=== PATIENT | male | born 1965 | race Caucasian/White ===

== ENCOUNTER 2021-07-18 21:44 | Inpatient (IN) | payer OTHER, SELFPAY ==
[2021-07-18 22:14] VITALS: BP 152/96; PULSE 98; RESP 24; TEMP 36.7; O2SAT 92; BMI 27.2
[2021-07-18 22:27] VITALS: BP 167/97; PULSE 100; RESP 26; O2SAT 93
[2021-07-18 22:27] LABS: Add Manual Diff / Slide Review NO; Basophils Absolute Auto 0 /uL (0-100); Basophils Percent Auto 0.5 % (0-2); Eosinophils Absolute Auto 0 /uL (0-450); Hematocrit 50.8 % (41-53); Hemoglobin 17.7 g/dL (13.5-17.5); Lymphocytes Absolute Auto 900 /uL (1100-4500); Lymphocytes Percent Auto 19.7 % (25-40); Mean Corpuscular HGB Conc 34.7 % (30-36); Mean Corpuscular Hemoglobin 31.9 PG (26-34); Mean Corpuscular Volume 91.8 fL (80-100); Monocytes Absolute Auto 500 /uL (0-900); Neutrophils Absolute Auto 3200 /uL (1500-7000); Neutrophils Percent Auto 68.8 % (50-75); Platelet Count 146 X10^3/uL (150-400); Red Blood Cell Count 5.54 X10^6/uL (4.5-5.9); Red Cell Distribution Width 12.5 % (11.6-14.8); White Blood Cell Count 4.6 X10^3/uL (4.5-11.0)
[2021-07-18 22:30] VITALS: BP 167/98; PULSE 94; RESP 46; O2SAT 91
[2021-07-18] MEDS: ONDANSETRON 4 MG/2 ML INJ IV (22:30)
[2021-07-18 22:37] LABS: Alanine Aminotransferase 45 IU/L (<50); Albumin 4.2 g/dL (3.5-5.0); Albumin Globulin Ratio 1.4 (1.0-2.8); Alkaline Phosphatase 55 U/L (38-126); Aspartate Aminotransferase 44 IU/L (17-59); BUN Creatinine Ratio 42.6 (6-22); Bilirubin Total 0.8 mg/dL (0.2-1.3); Blood Urea Nitrogen 26 mg/dL (9-20); Calcium 9.1 mg/dL (8.4-10.2); Carbon Dioxide 24 mmol/L (22-32); Chloride 92 mmol/L (98-107); Estimated Glomerular Filt Rate > 60.0 mL/min (>60); Globulin 3.1 g/dL (1.7-4.1); Glucose 316 mg/dL (70-100); HEMOLYSIS 22 (0-50); Lipase 108 U/L (23-300); Sodium 129 mmol/L (137-145); Total Protein 7.3 g/dL (6.3-8.2)
[2021-07-18 23:00] VITALS: BP 175/97; PULSE 97; RESP 42; O2SAT 91
[2021-07-18 23:07] VITALS: TEMP 37.2
[2021-07-18] MEDS: SODIUM CHLORIDE 0.9% 1,000 ML 1000 ML IV (23:10)
[2021-07-18 23:30] VITALS: BP 173/91; PULSE 101; RESP 43; O2SAT 88
[2021-07-19] VITALS (13 sets, daily range): BP systolic 128–173; BP diastolic 73–95; PULSE 72–98; RESP 16–37; TEMP 36.5–37.6; O2SAT 87–97; BMI 26.9
--- NOTE | 2021-07-19 00:34 | DI.CT.S_ITS ---
PROCEDURE: CT ABDOMEN PELVIS W CON INDICATIONS: abdominal pain, + covid TECHNIQUE: After the administration of oral and IV contrast, axial sections were acquired from the lung bases to the pubic symphysis. Coronal and sagittal reformats were performed. For radiation dose reduction, the following was used: automated exposure control, adjustment of mA and/or kV according to patient size. COMPARISON: [facility], CR, XR CHEST 1V, 07/19/2021, 0:34. [facility], CT, PE STUDY (CTA CHEST), 12/26/2014, 12:57. FINDINGS: Image quality: Excellent. Lung bases: Bilateral patchy interstitial type infiltrates are seen, primarily peripherally. A small hiatal hernia is incidentally noted. Heart: No significant findings. ABDOMEN: Liver: Diffuse fatty liver infiltration is noted. The liver demonstrates overall normal size. No focal liver lesions are seen. Gallbladder: Unremarkable. Biliary ducts: Unremarkable. Pancreas: Unremarkable. Spleen: Unremarkable. Incidental note is made of an accessory splenule along the hilum of the primary spleen. Adrenal Glands: Unremarkable. Kidneys and Ureters: Unremarkable. Stomach and Bowel: Stomach, small bowel loops, and colon are unremarkable. No appendix (either normal or abnormal) is identified on this study. Peritoneum: No abnormal intraperitoneal fluid. No free air. Ventral Wall: No hernia. Abdominal Nodes: No retroperitoneal or mesenteric adenopathy by size criteria. Vessels: Aorta and inferior vena cava are normal in size. PELVIS: Pelvic Organs: Unremarkable. Bladder: Unremarkable. Pelvic Nodes: No enlarged lymph nodes. Miscellaneous: Bilateral fat containing inguinal hernias are seen, left larger than right. Bones: Age-appropriate bony degenerative changes are seen. IMPRESSION: A cause of abdominal pain is not observed on these images. Patchy bilateral interstitial infiltrates are seen, which are consistent with the given clinical history of COVID pneumonia. Incidental note is made of: Small hiatal hernia Accessory splenule Bilateral fat containing inguinal hernias Dictated by: Quintin Elder M.D. on 07/19/2021 at 0:12 Approved by: Quintin Elder M.D. on 07/19/2021 at 0:14
--- NOTE | 2021-07-19 00:34 | DI.RAD.S_ITS ---
PROCEDURE: XR CHEST 1V INDICATIONS: covid TECHNIQUE: One view of the chest was acquired. COMPARISON: [facility], CT, CT ABDOMEN PELVIS W CON, 07/19/2021, 0:42. [facility], CT, PE STUDY (CTA CHEST), 12/26/2014, 12:57. [facility], CR, CHEST 1 VIEW, 12/26/2014, 11:45. FINDINGS: Surgical changes and devices: None. Lungs and pleura: Low lung volumes are noted. This causes a crowded appearance to the lung markings and limits evaluation. Bilateral patchy interstitial type infiltrates are seen. No pleural effusions or pneumothorax. Mediastinum: Mediastinal contours appear normal. Heart size is normal. Bones and chest wall: No suspicious bony lesions. Overlying soft tissues appear unremarkable. IMPRESSION: Patchy bilateral interstitial infiltrates are seen, which are consistent with the given clinical history of COVID pneumonia. Dictated by: Quintin Elder M.D. on 07/19/2021 at 0:11 Approved by: Quintin Elder M.D. on 07/19/2021 at 0:12
[2021-07-19] MEDS: PANTOPRAZOLE 40 MG VIAL IV (00:39)
[2021-07-19] MEDS: KETOROLAC 30 MG/ML VIAL IV (00:39)
[2021-07-19] MEDS: ACETAMINOPHEN 325 MG TABLET 975 MG PO (00:39)
--- NOTE | 2021-07-19 00:44 | ED.ABDPAIN ---
HPI - Abdominal Pain General Chief Complaint: Abdominal Pain Stated Complaint: stomach pain, recent + covid Time Seen by Provider: 07/18/21 23:57 Source: patient and family Mode of arrival: Wheelchair Limitations: no limitations History of Present Illness HPI narrative: The patient is a 55-year-old male with diagnosed with COVID 1 week ago presenting today with increased abdominal pain and nausea. He is having shortness of breath with exertion occasional coughing. Overall body aches. Feels like he is dying. O2 sat remains 92-93% room air. He is not vaccinated. Currently afebrile, has not taken any Tylenol or ibuprofen. Apparently filled out a survey on line and was prescribed azithromycin and methylprednisolone from a provider in [place]. Related Data Allergies Allergy/AdvReac Type Severity Reaction Status Date / Time No Known Drug Allergies Allergy Verified 07/18/21 22:31 Review of Systems Review of Systems Narrative: GENERAL: Denies chills, fatigue, malaise, fever, sweats, travel HEENT: Denies sinus pain, ear pain, sore throat, difficulty swallowing, neck pain RESPIRATORY: Denies dyspnea, cough, wheezing, hemoptysis, sputum. CARDIOVASCULAR: Denies chest pain, palpitations, orthopnea, edema GASTROINTESTINAL: See HPI : Denies dysuria, frequency, incontinence, hematuria, urinary retention, flank pain. MUSCULOSKELETAL: Denies weakness, joint pain, or bony pain SKIN: No rash, no erythema, no pruritus NEUROLOGIC: Denies weakness, dizziness, headache, numbness, change in speech, confusion PSYCHIATRIC: No concerning psychosocial issues. 12 point review of systems is negative except for those stated above and HPI Patient History Medical History (Updated 07/19/21 @ 03:30 by SUE Locke-LAKESHIA) No significant past medical history Surgical History (Updated 07/19/21 @ 03:30 by CESAR Locke) History of appendectomy Family History Mother Cancer Father Heart attack Exam Initial Vital Signs Initial Vital Signs: Vital Signs Temperature 98.1 F 07/18/21 22:14 Pulse Rate 98 H 07/18/21 22:14 Respiratory Rate 24 07/18/21 22:14 Blood Pressure 152/96 H 07/18/21 22:14 Pulse Oximetry 92 07/18/21 22:14 GENERAL: Tearful 55-year-old male HEENT: Head atraumatic,EOMI, pupils reactive, face symmetric, [moist] mucous membranes CARDIOVASCULAR: Regular rate and rhythm without murmurs, rubs or gallops. RESPIRATORY: Breath sounds equal bilaterally, no wheezes rales or rhonchi. ABDOMEN: Soft, diffusely tender no distention no localization of pain negative Barnes sign EXTREMITIES: Normal range of motion, no clubbing or edema. Neurovascularly intact NEUROLOGICAL: Alert and oriented x4.Normal gait and speech. SKIN: Warm, dry, no laceration, no petechiae, no rashes or lesions. Course Orders Ordered: ED Orders 07/18/21 22:04 Complete Blood Count AUTO DIFF Stat Comprehensive Metabolic Panel Stat Lipase Stat 07/18/21 22:19 EKG-12 Lead Stat 07/19/21 00:34 CT abdomen pelvis w con Stat XR chest 1V Stat 07/19/21 01:52 Hemoglobin A1C% w Est Avg Glu Stat Acetaminophen (Acetaminophen 325 Mg Tablet) 650 mg PO Q6HR PRN PRN Reason: Fever/Mild Pain (1-3) Last Admin: 07/19/21 03:43 Dose: 650 mg Documented by: NAZARIO Hydrocodone Bitart/Acetaminophen (Hydrocodone/Acet 5/325 Tablet) 2 tab PO Q4HR PRN PRN Reason: Pain, Severe (7-10) Dexamethasone (Dexamethasone 10 Mg/Ml Vial) 6 mg IV DAILY [facility] Remdesivir 100 mg/ Sodium (Chloride) 250 mls @ 250 mls/hr IV DAILY KONSTANTIN Stop: 07/27/21 09:01 Sodium Chloride (Normal Saline 0.9%) 500 mls @ 60 mls/hr IV CONT KONSTANTIN Last Admin: 07/19/21 03:44 Dose: 60 mls/hr Documented by: NAZARIO Ketorolac Tromethamine (Ketorolac 30 Mg/Ml Vial) 30 mg IV Q6HR PRN PRN Reason: Pain, Severe (7-10) Stop: 07/24/21 02:13 Lorazepam (Lorazepam 0.5 Mg Tablet) 0.5 mg PO Q4HR PRN PRN Reason: Anxiety Last Admin: 07/19/21 03:43 Dose: 0.5 mg Documented by: NAZARIO Naloxone HCl (Naloxone 0.4 Mg/Ml Vial) 0.2 mg IV Q2MIN PRN PRN Reason: Opiate Reversal Ondansetron HCl (Ondansetron 4 Mg/2 Ml Inj) 4 mg IV Q8HR PRN PRN Reason: Nausea And Vomiting Discontinued Medications Acetaminophen (Acetaminophen 325 Mg Tablet) 975 mg PO NOW ONE Stop: 07/19/21 00:35 Last Admin: 07/19/21 00:39 Dose: 975 mg Documented by: MAXIMILIAN Dexamethasone (Dexamethasone 10 Mg/Ml Vial) 6 mg IV NOW ONE Stop: 07/19/21 01:21 Last Admin: 07/19/21 01:54 Dose: 6 mg Documented by: MAXIMILIAN Enoxaparin Sodium (Enoxaparin 40 Mg/0.4 Ml Syringe) 40 mg SUBCUT DAILY KONSTANTIN Sodium Chloride (Normal Saline 0.9%) 1,000 mls @ 1,000 mls/hr IV BOLUS ONE Stop: 07/18/21 23:40 Last Infusion: 07/19/21 00:26 Dose: 0 mls/hr Documented by: Admin: 07/18/21 23:10 Dose: 1,000 mls/hr Documented by: MAXIMILIAN Remdesivir 200 mg/ Sodium (Chloride) 250 mls @ 250 mls/hr IV NOW ONE Stop: 07/19/21 01:21 Last Infusion: 07/19/21 02:39 Dose: 250 mls/hr Documented by: Admin: 07/19/21 01:53 Dose: 250 mls/hr Documented by: MAXIMILIAN Ketorolac Tromethamine (Ketorolac 30 Mg/Ml Vial) 30 mg IV NOW ONE Stop: 07/19/21 00:35 Last Admin: 07/19/21 00:39 Dose: 30 mg Documented by: MAXIMILIAN Ondansetron HCl (Ondansetron 4 Mg/2 Ml Inj) 4 mg IV NOW ONE Stop: 07/18/21 22:20 Last Admin: 07/18/21 22:30 Dose: 4 mg Documented by: RAMAKRISHNA Pantoprazole Sodium (Pantoprazole 40 Mg Vial) 40 mg IV NOW ONE Stop: 07/19/21 00:35 Last Admin: 07/19/21 00:39 Dose: 40 mg Documented by: MAXIMILIAN Vital Signs Vital signs: Vital Signs - 8 hr 07/18/21 22:14 07/18/21 22:27 07/18/21 22:30 Temperature 98.1 F Pulse Rate 98 H 100 H 94 H Respiratory Rate 24 26 H 46 H Blood Pressure 152/96 H 167/97 H 167/98 H Pulse Oximetry 92 93 91 07/18/21 23:00 07/18/21 23:07 07/18/21 23:30 Temperature 98.9 F Pulse Rate 97 H 101 H Respiratory Rate 42 H 43 H Blood Pressure 175/97 H 173/91 H Pulse Oximetry 91 88 L 07/19/21 00:00 Temperature Pulse Rate 98 H Respiratory Rate 37 H Blood Pressure 173/95 H Pulse Oximetry 90 L MDM - Abdominal Pain Lab Data Result diagrams: 07/19/21 02:51 07/19/21 02:51 Labs: Lab Results 07/18/21 07/18/21 07/18/21 Range/Units 22:04 22:04 22:04 WBC 4.6 (4.5-11.0) X10^3/uL RBC 5.54 (4.5-5.9) X10^6/uL Hgb 17.7 H (13.5-17.5) g/dL Hct 50.8 (41-53) % MCV 91.8 (80-100) fL MCH 31.9 (26-34) PG MCHC 34.7 (30-36) % RDW 12.5 (11.6-14.8) % Plt Count 146 L (150-400) X10^3/uL Neut % (Auto) 68.8 (50-75) % Lymph % (Auto) 19.7 L (25-40) % [place] % (Auto) 11.0 (3-14) % Eos % (Auto) 0.0 L (2-4) % Baso % (Auto) 0.5 (0-2) % Neut # (Auto) 3200 (1996-7475) /uL Lymph # (Auto) 900 L (2171-6684) /uL [place] # (Auto) 500 (0-900) /uL Eos # (Auto) 0 (0-450) /uL Baso # (Auto) 0 (0-100) /uL Sodium 129 L (137-145) mmol/L Potassium 4.0 (3.4-5.1) mmol/L Chloride 92 L (98-107) mmol/L Carbon Dioxide 24 (22-32) mmol/L BUN 26 H (9-20) mg/dL Creatinine 0.61 L (0.66-1.25) mg/dL Estimated GFR > 60.0 (>60) mL/min BUN/Creatinine Ratio 42.6 H (6-22) Glucose 316 H (70-100) mg/dL Hemoglobin A1c 11.8 H (4.0-6.0) % Lactate (0.7-2.1) mmol/L Calcium 9.1 (8.4-10.2) mg/dL Phosphorus (2.5-4.5) mg/dL Magnesium (1.6-2.3) mg/dL Total Bilirubin 0.8 (0.2-1.3) mg/dL AST 44 (17-59) IU/L ALT 45 (<50) IU/L Alkaline Phosphatase 55 (38-126) U/L Troponin I (0.01-0.034) ng/mL C-Reactive Protein (<1.0) mg/dL Total Protein 7.3 (6.3-8.2) g/dL Albumin 4.2 (3.5-5.0) g/dL Globulin 3.1 (1.7-4.1) g/dL Albumin/Globulin Ratio 1.4 (1.0-2.8) Lipase 108 (23-300) U/L 07/18/21 07/18/21 07/18/21 Range/Units 22:04 22:04 22:04 WBC (4.5-11.0) X10^3/uL RBC (4.5-5.9) X10^6/uL Hgb (13.5-17.5) g/dL Hct (41-53) % MCV (80-100) fL MCH (26-34) PG MCHC (30-36) % RDW (11.6-14.8) % Plt Count (150-400) X10^3/uL Neut % (Auto) (50-75) % Lymph % (Auto) (25-40) % [place] % (Auto) (3-14) % Eos % (Auto) (2-4) % Baso % (Auto) (0-2) % Neut # (Auto) (7470-6274) /uL Lymph # (Auto) (9915-1181) /uL [place] # (Auto) (0-900) /uL Eos # (Auto) (0-450) /uL Baso # (Auto) (0-100) /uL Sodium (137-145) mmol/L Potassium (3.4-5.1) mmol/L Chloride (98-107) mmol/L Carbon Dioxide (22-32) mmol/L BUN (9-20) mg/dL Creatinine (0.66-1.25) mg/dL Estimated GFR (>60) mL/min BUN/Creatinine Ratio (6-22) Glucose (70-100) mg/dL Hemoglobin A1c (4.0-6.0) % Lactate (0.7-2.1) mmol/L Calcium (8.4-10.2) mg/dL Phosphorus 3.3 (2.5-4.5) mg/dL Magnesium 2.1 (1.6-2.3) mg/dL Total Bilirubin (0.2-1.3) mg/dL AST (17-59) IU/L ALT (<50) IU/L Alkaline Phosphatase (38-126) U/L Troponin I < 0.012 (0.01-0.034) ng/mL C-Reactive Protein 7.0 H (<1.0) mg/dL Total Protein (6.3-8.2) g/dL Albumin (3.5-5.0) g/dL Globulin (1.7-4.1) g/dL Albumin/Globulin Ratio (1.0-2.8) Lipase (23-300) U/L 07/18/21 Range/Units 22:04 WBC (4.5-11.0) X10^3/uL RBC (4.5-5.9) X10^6/uL Hgb (13.5-17.5) g/dL Hct (41-53) % MCV (80-100) fL MCH (26-34) PG MCHC (30-36) % RDW (11.6-14.8) % Plt Count (150-400) X10^3/uL Neut % (Auto) (50-75) % Lymph % (Auto) (25-40) % [place] % (Auto) (3-14) % Eos % (Auto) (2-4) % Baso % (Auto) (0-2) % Neut # (Auto) (1516-1160) /uL Lymph # (Auto) (2031-5398) /uL [place] # (Auto) (0-900) /uL Eos # (Auto) (0-450) /uL Baso # (Auto) (0-100) /uL Sodium (137-145) mmol/L Potassium (3.4-5.1) mmol/L Chloride (98-107) mmol/L Carbon Dioxide (22-32) mmol/L BUN (9-20) mg/dL Creatinine (0.66-1.25) mg/dL Estimated GFR (>60) mL/min BUN/Creatinine Ratio (6-22) Glucose (70-100) mg/dL Hemoglobin A1c (4.0-6.0) % Lactate 1.3 (0.7-2.1) mmol/L Calcium (8.4-10.2) mg/dL Phosphorus (2.5-4.5) mg/dL Magnesium (1.6-2.3) mg/dL Total Bilirubin (0.2-1.3) mg/dL AST (17-59) IU/L ALT (<50) IU/L Alkaline Phosphatase (38-126) U/L Troponin I (0.01-0.034) ng/mL C-Reactive Protein (<1.0) mg/dL Total Protein (6.3-8.2) g/dL Albumin (3.5-5.0) g/dL Globulin (1.7-4.1) g/dL Albumin/Globulin Ratio (1.0-2.8) Lipase (23-300) U/L Imaging Data CT scan - abdomen/pelvis: Radiologist's Impression: PROCEDURE:? CT ABDOMEN PELVIS W CON ? INDICATIONS:? abdominal pain,? + covid ? TECHNIQUE:? After the administration of oral and IV contrast, axial sections were acquired from the lung bases to the pubic symphysis.? Coronal and sagittal reformats were performed.? For radiation dose reduction, the following was used:? automated exposure control, adjustment of mA and/or kV according to patient size. ? COMPARISON:? [facility], CR, XR CHEST 1V, 07/19/2021, 0:34.? [facility], CT, PE STUDY (CTA CHEST), 12/26/2014, 12:57. ? FINDINGS:? Image quality:? Excellent.? ? Lung bases:? Bilateral patchy interstitial type infiltrates are seen, primarily peripherally. A small hiatal hernia is incidentally noted.? Heart:? No significant findings. ? ? ABDOMEN: Liver: Diffuse fatty liver infiltration is noted.? The liver demonstrates overall normal size.? No focal liver lesions are seen. Gallbladder:? Unremarkable.? ? Biliary ducts:? Unremarkable.? ? Pancreas:? Unremarkable.? ? Spleen:? Unremarkable.? ? Incidental note is made of an accessory splenule along the hilum of the primary spleen. Adrenal Glands:? Unremarkable.? ? Kidneys and Ureters:? Unremarkable.? ? ? Stomach and Bowel:? Stomach, small bowel loops, and colon are unremarkable.? No appendix (either normal or abnormal) is identified on this study.? Peritoneum:? No abnormal intraperitoneal fluid.? No free air.? ? Ventral Wall: ? No hernia.? Abdominal Nodes:? No retroperitoneal or mesenteric adenopathy by size criteria.? Vessels:? Aorta and inferior vena cava are normal in size.? ? PELVIS: Pelvic Organs:? Unremarkable.? ? Bladder:? Unremarkable.? ? Pelvic Nodes: No enlarged lymph nodes.? Miscellaneous:? Bilateral fat containing inguinal hernias are seen, left larger than right. ? Bones:? Age-appropriate bony degenerative changes are seen.? ? ? IMPRESSION:? A cause of abdominal pain is not observed on these images. ? Patchy bilateral interstitial infiltrates are seen, which are consistent with the given clinical history of COVID pneumonia.? Incidental note is made of: Small hiatal hernia Accessory splenule Bilateral fat containing inguinal hernias ? Dictated by: Quintin Elder M.D. on 07/19/2021 at 0:12? Chest x-ray: Radiologist's Impression: PROCEDURE:? XR CHEST 1V ? INDICATIONS:? covid ? TECHNIQUE:? One view of the chest was acquired.? ? COMPARISON:? [facility], CT, CT ABDOMEN PELVIS W CON, 07/19/2021, 0:42.? [facility], CT, PE STUDY (CTA CHEST), 12/26/2014, 12:57.? [facility], CR, CHEST 1 VIEW, 12/26/2014, 11:45. ? FINDINGS:? ? ? Surgical changes and devices:? None.? ? Lungs and pleura:? Low lung volumes are noted. This causes a crowded appearance to the lung markings and limits evaluation.? Bilateral patchy interstitial type infiltrates are seen. No pleural effusions or pneumothorax.? ? Mediastinum:? Mediastinal contours appear normal.? Heart size is normal.? ? Bones and chest wall:? No suspicious bony lesions.? Overlying soft tissues appear unremarkable.? ? ? IMPRESSION:? Patchy bilateral interstitial infiltrates are seen, which are consistent with the given clinical history of COVID pneumonia.? ? ? Dictated by: Quintin Elder M.D. on 07/19/2021 at 0:11 ? ? Approved by: Quintin Elder M.D. on 07/19/2021 at 0:12 ? ECG Data Interpretation: Sinus rhythm rate 90 p.r. interval 136 QRS 88 QTC [address] changes MDM Narrative Medical decision making narrative: During his time in the emergency department his O2 dropped to 88% require him to be on 3 L of oxygen. He is becoming more tachypneic as well. Abdominal CT does not show any abnormality x-ray reveals. Unfortunately patient is definitely requiring oxygen and has worsened in the emergency department. He is given dexamethasone and remdesivir. has been informed of this over the phone and is concerned because of lack of insurance. He is agreeable to stay in the hospital. Glucose is found to be elevated at 316, slightly hyponatremic at 129, corrected sodium is 132. This may be from outpatient steroid versus new onset diabetes. Alphonse HUGHES updated patient's symptoms test results and happily accepted Discharge Plan Departure Patient Disposition: Admitted As Inpatient Clinical Impression: COVID-19 Admit Date/Time: 07/19/21 01:56 Admit Provider: Eloise Cunha
[2021-07-19] MEDS: REMDESIVIR 200 MG in SODIUM CHLORIDE 0.9% 210 ML 250 ML IV (01:53)
[2021-07-19] MEDS: DEXAMETHASONE 10 MG/ML VIAL 6 MG IV ×2 (01:54→09:12)
--- NOTE | 2021-07-19 02:39 | P.HP_ITS ---
History of Present Illness History of Present Illness Date Patient Seen: 07/19/21 Time Patient Seen: 02:39 Chief complaint: stomach pain, recent + covid Narrative: The patient is a 55-year-old male Aung Corrales diagnosed with COVID 1 week ago presented to the ED with increased abdominal pain and nausea.? No initial difficulty breathing or respiratory distress, but complaining of generalized body aches and pains.? The patient stated in the ED overall I feel like I am dying.?Initially O2 sat remains 92-93% on room air and afibrile.? He is not vaccinated. Patient continued to complain of severe abdominal pain and nausea CT of the abdomen and pelvis were unremarkable, but while remaining in the ED patient deteriorated into acute respiratory failure requiring 2-3 L O2 to achieve O2 saturation of 90%. Patient also demonstrated uncontrolled hypertension, and tachypneic with a respiratory rate of 37. Patient reports that he was diagnosed a week ago on Saturday with COVID 2 days later he began to have decreased appetite nausea and mild vomiting reports blackish stool 2 days ago, no diarrhea, fever x2 days. Patient reports that a doctor in [place] over t he phone prescribed him azithromycin, methylprednisone, Zofran, and albuterol for his COVID 19 infection-he has taken 3 days worth of the medication in which time his condition has only worsened. The patient denies any medical history, no medications, only takes [id number] vitamins. Patient did notify his employer at the [employer] regarding his positive COVID test. Patient has never smoked, no history of heart attack, stroke, respitory disease, or blood clots. Upon admit exam patient appears continued SOB, unable to complete full sentence, extremly anxious, continued compliant of abd pain midline just above the umbilicus. Patient states pain is worsened with eating. Patient denies urinary symptoms, last BM 2 days ago, denies blood in his urine or hematemesis. Patient's vitals upon admit temp 98.9?, BP 173/95, HR 98, R 37, O2 saturation 90% on 2 L nasal cannula. Patient WBC within normal limits, platelets mildly decreased at 146. Demonstrating hyponatremia Na 129, chloride 92, BUN 26, creatinine 0.61, with a glucose of 316. Patient does not have anion gap:13, sofa score: 3, rocks: 7.60 low risk for intubation, lipase is negative. Chest x-ray demonstrates bilateral patchy interstitial infiltrates consistent with COVID pneumonia. Patient admitted for COVID pneumonia with secondary acute respiratory failure, hyponatremia, hyperglycemia, elevated blood pressure, and thrombocytopenia. 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 Safety & Behavioral: Feels Safe in Current Yes Environment Tobacco & Substance use: Patient has never smoked Patient reports 1 beer per week Denies any recreational substance use Meds Home Medications and Allergies Home Medications Medication Instructions Recorded Confirmed Type No Known Home Medications 07/19/21 07/19/21 History Allergies Allergy/AdvReac Type Severity Reaction Status Date / Time No Known Drug Allergies Allergy Verified 07/18/21 22:31 Review of Systems Review of Systems Narrative: All 12 point systems reviewed with the patient and are negative except otherwise documented. Exam Vital Signs (past 8 hours): - 07/18/21 22:14 07/18/21 22:27 07/18/21 22:30 Temperature 98.1 F Pulse Rate 98 H 100 H 94 H Respiratory Rate 24 26 H 46 H Blood Pressure 152/96 H 167/97 H 167/98 H Pulse Oximetry 92 93 91 07/18/21 23:00 07/18/21 23:07 07/18/21 23:30 Temperature 98.9 F Pulse Rate 97 H 101 H Respiratory Rate 42 H 43 H Blood Pressure 175/97 H 173/91 H Pulse Oximetry 91 88 L 07/19/21 00:00 Temperature Pulse Rate 98 H Respiratory Rate 37 H Blood Pressure 173/95 H Pulse Oximetry 90 L Oxygen Delivery Method Nasal Cannula Oxygen Flow Rate 2 Narrative Exam Narrative: General: Patient is a well-developed, well-nourished fit male anxious and in moderate abd pain with movement, increased work of breathing, in no acute respiratory distress at this time. HEENT: Normocephalic, atraumatic, extraocular muscles intact, oral pharynx is clear and mucous membranes are dry. Neck is supple and symmetric, trachea is midline, no adenopathy, no thyroid enlargement, nontender, no masses palpated. Negative for JVD Chest: Normal AP diameter and contour without kyphoscoliosis, no nasal flaring, retractions, Positive tachypneic labored, work of breathing. Lungs: Auscultation of all lung lin are dimished but equal. Cardio: S1 & S2 with tachycardic rate and rhythm without murmur, rubs, or gallops, no carotid bruit, no cardiac pulsations present. Abdomen: Firm tender slightly distended mid-line above the umbilicus, negative for organomegaly, or masses. Bowel sounds are present in all 4 quadrants without guarding or rebound, no CVA tenderness. Musculoskeletal: Muscle strength and tone are equal within normal limits, no deformity, crepitus, effusions, cyanosis, clubbing or edema present. Full range of motion intact radial and pedal pulses are normal. Skin: Feels warm through double gloves, dry and intact without rashes, ulcerat ions or petechiae. Neuro: Alert and orientated x3, strength is +5/5 in all extremities, sensation to touch intact, no gross deficits noted of cranial nerves. Psych: Patient has a well-kept appearance, anxious animated affect. Objective Labs Result Diagrams: 07/18/21 22:04 07/18/21 22:04 Labs: Laboratory Results - last 24 hr 07/18/21 07/18/21 22:04 22:04 WBC 4.6 RBC 5.54 Hgb 17.7 H Hct 50.8 MCV 91.8 MCH 31.9 MCHC 34.7 RDW 12.5 Plt Count 146 L Neut % (Auto) 68.8 Lymph % (Auto) 19.7 L Den[place] % (Auto) 11.0 Eos % (Auto) 0.0 L Baso % (Auto) 0.5 Neut # (Auto) 3200 Lymph # (Auto) 900 L Den[place] # (Auto) 500 Eos # (Auto) 0 Baso # (Auto) 0 Sodium 129 L Potassium 4.0 Chloride 92 L Carbon Dioxide 24 BUN 26 H Creatinine 0.61 L Estimated GFR > 60.0 BUN/Creatinine Ratio 42.6 H Glucose 316 H Calcium 9.1 Total Bilirubin 0.8 AST 44 ALT 45 Alkaline Phosphatase 55 Total Protein 7.3 Albumin 4.2 Globulin 3.1 Albumin/Globulin Ratio 1.4 Lipase 108 Assessment & Plan Assessment & Plan narrative: Patient is Aung Corrales a 55-year-old male with no medical history and who takes no medications who is unvaccinated and tested positive for COVID-19 approximately 1 week ago. Patient was prescribed azithromycin, methylprednisone, Zofran, and albuterol which the patient took for approximately 3 days for his COVID infection from a [facility] physician. Patient is admitted for acute respiratory distress secondary to COVID pneumonia with complicating elevated blood pressure, and hyponatremia. 1. Acute respiratory failure with hypoxia and tachypnea, secondary to COVID pneumonia, acute, present on admission -unvaccinated, Initial :B/P 173/95, RR 37, Temp 99.7, sofa score:3, BENITO: 7.60 l ow risk for intubation, lipase is negative. Chest x-ray demonstrates bilateral patchy interstitial infiltrates consistent with COVID pneumonia. 3 L nasal cannula with an O2 saturation of 90% on room air -monitor patient for acute TX, ischemic stroke, PE, DVT, venous thrombosis, hyperglycemia an increased risk of bacterial infections, fungal and strongyloides -upon admit on 3 L nasal cannula with an O2 saturation of 90% on room air, respiratory rate of 27 -Labs ordered: Respiratory panel, blood cultures pending, A1c, ABG, lactate, procalcitonin, respiratory panel, magnesium, phosphorus -Meds:6 mg dexamethasone, albuterol inhaler 2 puffs, , enoxaparin 40 mg, normal saline 1000 cc, remdesivir 200 mg, Baricitnib 4mg -encourage frequent and regular proning -patient to be monitored on tele medicine, vital signs q.4 hours -Supplemental NC -maintain SaO2 greater than 90%, Resp consult, Inspiratory spirometry -avoiding nebulizer aerosol treatments, if signs and symptoms are worsening order chest x-ray and echo 2. Hyponatremia, acute, present on admission -initial sodium 129 -gentle rehydration NS at 60 cc/hour 3. Elevated Blood sugar without diagnosis of diabetes, acute, present on adm ission -chloride 92, BUN 26, creatinine 0.61, with a glucose of 316. Patient does not have anion gap:13 -Ordered A1C, BS checks ACHS 4. Elevated blood pressure without diagnosis of HTN, acute, present on admission -49 yr history of smoking Code status:Limited -Does not want INTUBATION Surrogate decision maker: Spouse Christianne Corrales COVID PCR:POSITIVE- x1 week COVID vaccination: Unvaccinated DVT/VTE prophylaxis: Lovenox 40 mg b.i.d. and SCDs Disposition: Expected length of stay greater than 2 midnights. I have utilized all available immediate resources to obtain, update, or review the patient's current medications. I confirmed that the patient's advanced care plan is present, Code status is documented and/or surrogate decision maker is listed in the patient's medical record. Time Spent With Patient Critical Care time: I spent a total of [] minutes of critical care time on this patient's care today; this time is exclusive of procedural time. Scores GCS Leon coma scale eye opening: Spontaneous Leon coma scale verbal response: Orientated [place] coma scale motor response: Obey commands [place] coma scale total score: 15
[2021-07-19 02:54] LABS: Lactate (Lactic Acid) 1.3 mmol/L (0.7-2.1); Magnesium 2.1 mg/dL (1.6-2.3); Phosphorous 3.3 mg/dL (2.5-4.5)
[2021-07-19 03:06] LABS: Troponin I < 0.012 ng/mL (0.01-0.034)
[2021-07-19 03:11] LABS: Add Manual Diff / Slide Review NO; Basophils Absolute Auto 0 /uL (0-100); Basophils Percent Auto 0.4 % (0-2); Eosinophils Absolute Auto 0 /uL (0-450); Hematocrit 45.4 % (41-53); Hemoglobin 15.7 g/dL (13.5-17.5); Lymphocytes Absolute Auto 500 /uL (1100-4500); Lymphocytes Percent Auto 10.4 % (25-40); Mean Corpuscular HGB Conc 34.6 % (30-36); Mean Corpuscular Hemoglobin 31.9 PG (26-34); Mean Corpuscular Volume 92.3 fL (80-100); Monocytes Absolute Auto 500 /uL (0-900); Monocytes Percent Auto 10.4 % (3-14); Neutrophils Absolute Auto 3800 /uL (1500-7000); Neutrophils Percent Auto 78.8 % (50-75); Platelet Count 132 X10^3/uL (150-400); Red Blood Cell Count 4.92 X10^6/uL (4.5-5.9); Red Cell Distribution Width 12.6 % (11.6-14.8); White Blood Cell Count 4.9 X10^3/uL (4.5-11.0)
[2021-07-19 03:12] LABS: COVID19 - ADMIT (NP swab/PCR) POSITIVE (Negative)
[2021-07-19 03:22] LABS: Alanine Aminotransferase 36 IU/L (<50); Albumin 3.4 g/dL (3.5-5.0); Albumin Globulin Ratio 1.2 (1.0-2.8); Alkaline Phosphatase 46 U/L (38-126); Aspartate Aminotransferase 37 IU/L (17-59); BUN Creatinine Ratio 35.5 (6-22); Bilirubin Total 0.6 mg/dL (0.2-1.3); Blood Urea Nitrogen 22 mg/dL (9-20); Carbon Dioxide 23 mmol/L (22-32); Chloride 95 mmol/L (98-107); Estimated Glomerular Filt Rate > 60.0 mL/min (>60); Globulin 2.8 g/dL (1.7-4.1); Glucose 294 mg/dL (70-100); HEMOLYSIS < 15 (0-50); Potassium 3.7 mmol/L (3.4-5.1); Sodium 128 mmol/L (137-145); Total Protein 6.2 g/dL (6.3-8.2)
[2021-07-19 03:31] LABS: NT-proBNP (BNP-Adult 18+) 54 pg/mL (<125)
[2021-07-19 03:38] LABS: Hemoglobin A1C% w Est Avg Glu 11.8 % (4.0-6.0)
[2021-07-19 03:39] LABS: Procalcitonin 0.14 ng/mL (<0.5)
[2021-07-19] MEDS: LORazepam 0.5 MG TABLET PO (03:43)
[2021-07-19] MEDS: ACETAMINOPHEN 325 MG TABLET 650 MG PO (03:43)
[2021-07-19] MEDS: SODIUM CHLORIDE 0.9% 500 ML 60 ML IV (03:44)
[2021-07-19 03:46] LABS: INR 1.1 (0.9-1.3); Prothrombin Time 12.6 SECONDS (10.1-12.7)
[2021-07-19 03:55] LABS: D Dimer 596 ng/mL (<230)
[2021-07-19 04:47] LABS: Ferritin 1150 ng/mL (18-464)
[2021-07-19 05:10] LABS: Fractionated Inspired Oxygen 32; HCO3 ABG 22 mmol/L (22-26); Oxygen Saturation ABG 97 % (95-100); PCO2 ABG 33.7 mmHg (35-45); PO2 ABG 84 mmHg (80-100); TCO2 ABG 23 mmol/L (21-31)
[2021-07-19 05:11] LABS: pH ABG 7.42 (7.35-7.45)
[2021-07-19] MEDS: REMDESIVIR 100 MG in SODIUM CHLORIDE 0.9% 230 ML 250 ML IV (09:12)
[2021-07-19] MEDS: INSULIN LISPRO 100 UNIT/ML 3ML VIAL SUBCUT ×4 (09:12→20:58)
--- NOTE | 2021-07-19 09:17 | DIET.PN1 ---
Dietary Progress Note RD to assess patient today via phone. Kitchen to send ONS Ensure Max c lunches to support high protein needs of this covid+ patient with uncontrolled DM2 (A1c 11.9).
[2021-07-19 19:10] LABS: Adenovirus Not Detected (Not Detect); B. parapertussis Not Detected (Not Detecte); Bordetella pertussis Not Detected (Not Detecte); Chlamydophila pneumoniae Not Detected (Not Detect); Coronavirus 229E Not Detected (Not Detect); Coronavirus HKU1 Not Detected (Not Detect); Coronavirus NL 63 Not Detected (Not Detect); Coronavirus OC43 Not Detected (Not Detect); Human Metapneumovirus Not Detected (Not Detect); Human Rhinovirus/Enterovirus Not Detected (Not Detect); Influenza A Not Detected (Not Detect); Influenza B Not Detected (Not Detect); Mycoplasma pneumoniae Not Detected (Not Detect); Parainfluenza Virus 1 Not Detected (Not Detect); Parainfluenza Virus 2 Not Detected (Not Detect); Parainfluenza Virus 3 Not Detected (Not Detect); Parainfluenza Virus 4 Not Detected (Not Detect); Respiratory Syncytial Virus Not Detected (Not Detect)
[2021-07-19 19:18] LABS: SARS- CoV-2 Detected (Not Detecte)
[2021-07-19] MEDS: INSULIN GLARGINE 100 UNIT/ML 3ML PEN 20 UNIT SUBCUT (21:01)
--- NOTE | 2021-07-19 23:23 | PC.NURSE ---
A&OX4. was 92-95% 2L earlier, now on 4L 91%. pt refused to prone. pt was sitting up earlier by the window. occasional cough. non-productive. respiratory panel sent.
[2021-07-20] VITALS (15 sets, daily range): BP systolic 127–151; BP diastolic 70–85; PULSE 63–93; RESP 20–33; TEMP 36.6–37.3; O2SAT 70–97
--- NOTE | 2021-07-20 01:55 | PC.NURSE ---
Patient stated he does not want his blood sugar checked anymore and does not want the insulin medication. Patient stated that he will FU after his admission here.
[2021-07-20 04:54] LABS: Hematocrit 48.3 % (41-53); Hemoglobin 16.7 g/dL (13.5-17.5); Mean Corpuscular HGB Conc 34.6 % (30-36); Mean Corpuscular Hemoglobin 31.8 PG (26-34); Mean Corpuscular Volume 91.8 fL (80-100); Platelet Count 157 X10^3/uL (150-400); Red Blood Cell Count 5.27 X10^6/uL (4.5-5.9); Red Cell Distribution Width 12.4 % (11.6-14.8); White Blood Cell Count 7.2 X10^3/uL (4.5-11.0)
[2021-07-20 05:05] LABS: BUN Creatinine Ratio 46.6 (6-22); Blood Urea Nitrogen 27 mg/dL (9-20); Calcium 8.6 mg/dL (8.4-10.2); Carbon Dioxide 27 mmol/L (22-32); Chloride 97 mmol/L (98-107); Estimated Glomerular Filt Rate > 60.0 mL/min (>60); Glucose 277 mg/dL (70-100); HEMOLYSIS 19 (0-50); Potassium 4.3 mmol/L (3.4-5.1); Sodium 131 mmol/L (137-145)
[2021-07-20 05:48] LABS: Cortisol AM (Before 10AM) 2.39 ug/dL (4.46-22.7)
--- NOTE | 2021-07-20 07:28 | PC.NURSE ---
Addendum entered by Leonor Anthony R.N. 07/20/21 15:32: Updated patient as to transfer to ICU, patient is very receptive to current treatment and plans. Patient currently on 13L HF, 93%, RR 22. Tolerating fluids, voiding using the urinal. SCD's on bilaterally. Encouraged to prone, patient verbalizes understanding. Denies further needs at this time. Addendum entered by Leonor Anthony R.N. 07/20/21 13:23: Patient at 90-91 % on 13L HF. Patient RR 24, shallow, becomes SOB with conversation. RT called for ABG's. Patient tolerating lunch. Saline locked, denies pain, endorses fatigue and generally feeling sick. Patient voiding using urinal. Reports last BM 07/19. Spoke with patients over the phone, updated her on patient's status. Call light in reach. Original Note: Patient refused baseline cortisol lab draw at 0715.
[2021-07-20] MEDS: DEXAMETHASONE 10 MG/ML VIAL 6 MG IV (08:49)
[2021-07-20] MEDS: REMDESIVIR 100 MG in SODIUM CHLORIDE 0.9% 230 ML 250 ML IV (08:52)
[2021-07-20] MEDS: INSULIN LISPRO 100 UNIT/ML 3ML VIAL SUBCUT ×4 (09:30→20:23)
--- NOTE | 2021-07-20 12:56 | CM.DANOTE ---
DCP/Assessment: Reviewed chart. Patient is a 55yr old male admitted to .. with COVID. No PCP listed and No insurance listed. Placed call into patient's room to explained CM team role. Patient reports that he resides with his spouse in [place]. Both himself and spouse work. Unfortunately, patient has been unable to secure medical insurance do to cost. Patient has attempted to get himself and spouse on plan through [employer]. Patient reports that the plans they offer are way to expensive. In addition it appears in collection notes that patient did not qualify for Medicaid. Patient reports along with having COVID it has been determine that he also has diabetes. Patient indicates that he had no idea? Notified patient that [employer] would put together packet for pato care, Medicaid application, [place] for those with COVID, and [facility]. Stressed the importance of follow up. Also instructed patient to discuss short term disability with his current employer. Patient agreeable to all of the above. P: Anticipate home when medically stable. YASMIN Parson Discharge Planning/Care Management CM Discharge Assessment Start: 07/20/21 12:53 Freq: Status: Active Protocol: Document 07/20/21 12:54 KJS (Rec: 07/20/21 12:56 KJS [id number]) Discharge Planning Assessment Assigned Gas Meter Repairer YASMIN Parson Contact Information Christianne Corrales (Spouse) ph# [phone] Advance Directives? No Advance Directives on File No History Provided By Patient,Medical Record Prior Living Arrangements House Household Members spouse Type of transporation used prior to Drives own vehicle admit Independent with ADL's Yes Is patient alert and oriented? Yes Discharge Plan Home Transportation Arrangement Family Referrals Initiated Other Additional Comment Packet of resourced provided for patient Whiteboard Updated in Patient Room with No name and ext. # of Gas Meter Repairer Comment COVID precautions Review Status In Process Next Review Type Continued Stay Review
--- NOTE | 2021-07-20 13:26 | P.PN_ITS ---
Subjective Subjective Date Patient Seen: 07/20/21 Time Patient Seen: 08:00 Interval history: Today he is feeling more short of breath. He is not speaking in full sentences. His oxygen requirement has increased. Exam Vital Signs (past 8 hours): - 07/20/21 06:00 07/20/21 06:02 07/20/21 06:10 Temperature Pulse Rate 66 Respiratory Rate 22 Blood Pressure Pulse Oximetry 87 L 92 92 07/20/21 08:30 07/20/21 10:10 07/20/21 11:41 Temperature 98.7 F Pulse Rate 85 93 H Respiratory Rate 20 22 24 Blood Pressure 134/85 Pulse Oximetry 90 L 90 L 95 07/20/21 12:00 Temperature 97.9 F Pulse Rate 78 Respiratory Rate 23 Blood Pressure 141/76 H Pulse Oximetry Oxygen Delivery Method High Flow Nasal Cannula Oxygen Flow Rate 12 Narrative Exam Narrative: General: mild respiratory distress with increased work of breathing Lungs:? diminished breath sound bilaterally Cardio:? regular rate and rhythm with no murmurs Abdomen:?soft, nontender, nondistended, no organomegaly Skin:?warm, dry, no rashes noted Neuro:?awake alert and oriented, no focal deficits Objective Labs Result Diagrams: 07/20/21 04:35 07/20/21 04:35 Labs: Laboratory Results - last 24 hr 07/19/21 07/20/21 07/20/21 18:11 04:35 04:35 WBC 7.2 RBC 5.27 Hgb 16.7 Hct 48.3 MCV 91.8 MCH 31.8 MCHC 34.6 RDW 12.4 Plt Count 157 Sodium Potassium Chloride Carbon Dioxide BUN Creatinine Estimated GFR BUN/Creatinine Ratio Glucose Calcium Cortisol AM Sample 2.39 L Chlamy pneumoniae PCR Not detected Adenovirus (PCR) Not detected B. pertussis DNA (PCR) Not detected B.parapertussis DNA PCR Not detected Coronavirus OC43 (PCR) Not detected Coronavirus HKU1 (PCR) Not detected Coronavirus 229E (PCR) Not detected SARS-CoV-2 (PCR) Detected H Coronavirus NL63 (PCR) Not detected Human Metapneumovir PCR Not detected Influenza Type A (PCR) Not detected Influenza Type B (PCR) Not detected M. pneumoniae (PCR) Not detected Parainfluenza 1 (PCR) Not detected Parainfluenza 2 (PCR) Not detected Parainfluenza 3 (PCR) Not detected Parainfluenza 4 (PCR) Not detected RSV (PCR) Not detected Entero/Rhino (PCR) Not detected 07/20/21 04:35 WBC RBC Hgb Hct MCV MCH MCHC RDW Plt Count Sodium 131 L Potassium 4.3 Chloride 97 L Carbon Dioxide 27 BUN 27 H Creatinine 0.58 L Estimated GFR > 60.0 BUN/Creatinine Ratio 46.6 H Glucose 277 H Calcium 8.6 Cortisol AM Sample Chlamy pneumoniae PCR Adenovirus (PCR) B. pertussis DNA (PCR) B.parapertussis DNA PCR Coronavirus OC43 (PCR) Coronavirus HKU1 (PCR) Coronavirus 229E (PCR) SARS-CoV-2 (PCR) Coronavirus NL63 (PCR) Human Metapneumovir PCR Influenza Type A (PCR) Influenza Type B (PCR) M. pneumoniae (PCR) Parainfluenza 1 (PCR) Parainfluenza 2 (PCR) Parainfluenza 3 (PCR) Parainfluenza 4 (PCR) RSV (PCR) Entero/Rhino (PCR) [facility] Medical History (Updated 07/20/21 @ 07:04 by SUE LockeLAKESHIA) No significant past medical history Surgical History (Updated 07/19/21 @ 03:30 by CESAR Locke) History of appendectomy Family History Mother Cancer Father Heart attack Social History household members: spouse Smoking Status: Never smoker alcohol intake: current Assessment & Plan Assessment & Plan narrative: Mr. Corrales is a 55M who comes in with acute hypoxemic respiratory failure secondary to COVID pneumonia also found to have diabetes. 1. Acute respiratory failure with hypoxia and tachypnea, secondary to COVID pneumonia, acute, present on admission -unfortunately patient is unvaccinated -started on remdesivir and dexamethasone -initially on 3L nasal canula and now increased to 12L oxygen requirement -lovenox 40mg BID ordered -repeat ABG today -maintain O2 sat >90% -continue albuterol PRN -will consider baracitinib of worsens 2. Hyponatremia, acute, present on admission -initial sodium 129 -now improved slightly 3. Diabetes with A1c of 11.8, new diagnosis -started on lantus, and insulin sliding scale -insulin, c-peptide, anti-dashawn ab ordered 4. Low AM cortisol -possibly secondary to adrenal insufficiency -already on dexamethasone -no evidence of adrenal crisis -stim test ordered CODE: Full Surrogate decision maker: Spouse Christianne Corrales Time Spent With Patient Critical Care time: I spent a total of [] minutes of critical care time on this patient's care today; this time is exclusive of procedural time. Quality VTE Deep Vein Thrombosis/Pulmonary Embolism Present on Admission: No
[2021-07-20 14:03] LABS: HCO3 ABG 25 mmol/L (22-26); Oxygen Saturation ABG 90 % (95-100); PCO2 ABG 32.2 mmHg (35-45); PO2 ABG 53 mmHg (80-100); TCO2 ABG 26 mmol/L (21-31)
[2021-07-20 14:10] LABS: Fractionated Inspired Oxygen 55
--- NOTE | 2021-07-20 18:00 | PC.NURSE ---
Patient transferred to ICU at 15:30 via wheelchair.
[2021-07-20] MEDS: LORazepam 0.5 MG TABLET PO (18:12)
--- NOTE | 2021-07-20 18:40 | PC.NURSE ---
Report received from Acute Care RN. Care assumed at 1530. Pt transferred to ICU via wheelchair and on 13LNC. Transferred self to bed. Tachypnea, oxygen sat ~88%, otherwise VSS, sinus rhythm. Pt demonstrates anxiety regarding dyspnea, as well as difficult family dynamics. Placed on HHF with 25 lpm, 70% FiO2. Patient's breathing has improved. Ate dinner, side-lying in bed; educated about proning. Pt verbalizes understanding.
[2021-07-20] MEDS: ENOXAPARIN 40 MG/0.4 ML SYRINGE SUBCUT (20:25)
[2021-07-20] MEDS: INSULIN GLARGINE 100 UNIT/ML 3ML PEN 40 UNIT SUBCUT (20:27)
--- NOTE | 2021-07-20 21:21 | PM.ICURNDS ---
- :: This patient was seen via real time interactive two-way audiovisual telecommunication. Note: Patient admitted yesterday to acute care for COVID PNA (unvaccinated). He was started on decardron and Remdesivir. His oxygen requirement increased and he was transferred to ICU today at 15:30 and placed on HFNC. He is having hard time tolerating HFNC because of anxiety per nursing. THey are slowly going up on flow as tolerated. Patient currently on HFNC 25L 75%.
[2021-07-20 23:40] LABS: C Peptide 1.5 ng/mL (1.1-4.4); Insulin Level Total 6.6 uIU/mL (2.6-24.9)
[2021-07-21] VITALS (23 sets, daily range): BP systolic 112–147; BP diastolic 68–89; PULSE 59–120; RESP 16–38; TEMP 36.2–36.9; O2SAT 85–97
[2021-07-21 05:01] LABS: Hemoglobin 16.4 g/dL (13.5-17.5); Mean Corpuscular HGB Conc 34.8 % (30-36); Mean Corpuscular Volume 91.8 fL (80-100); Platelet Count 177 X10^3/uL (150-400); Red Blood Cell Count 5.12 X10^6/uL (4.5-5.9); Red Cell Distribution Width 12.4 % (11.6-14.8); White Blood Cell Count 7.7 X10^3/uL (4.5-11.0)
[2021-07-21 05:12] LABS: BUN Creatinine Ratio 45.5 (6-22); Blood Urea Nitrogen 25 mg/dL (9-20); C-Reactive Protein Quant 6.9 mg/dL (<1.0); Calcium 8.4 mg/dL (8.4-10.2); Carbon Dioxide 33 mmol/L (22-32); Chloride 98 mmol/L (98-107); Estimated Glomerular Filt Rate > 60.0 mL/min (>60); Glucose 233 mg/dL (70-100); HEMOLYSIS < 15 (0-50); Sodium 132 mmol/L (137-145)
[2021-07-21 06:01] LABS: D Dimer 1746 ng/mL (<230)
[2021-07-21 06:38] LABS: Ferritin 1220 ng/mL (18-464)
--- NOTE | 2021-07-21 07:08 | RT ---
Patient received on high flow with flow of 25L's and 70%. Patient became very agitated and anxious when any mention was made of changing settings. RN and Hospitalist made aware of this issue and changes held for now as long as patient maintains current work of breathing and SPO2. Patient with stable SPO2 except when he woke with a start and pulled his highflow apart, desaturating to 81% before being returned to high flow.
[2021-07-21] MEDS: DEXAMETHASONE 10 MG/ML VIAL 6 MG IV (08:35)
[2021-07-21] MEDS: ENOXAPARIN 40 MG/0.4 ML SYRINGE SUBCUT ×2 (08:35→20:33)
[2021-07-21] MEDS: INSULIN LISPRO 100 UNIT/ML 3ML VIAL SUBCUT ×3 (08:58→20:36)
--- NOTE | 2021-07-21 11:15 | PC.NURSE ---
Am shift Pt is SOB this Am, HHFNC adjustments being made by RT currently at 40L 70% Fio2. Spo2 91-95% Pt is having difficulty tolerating the HHFNC, c/o nasal congestion and discomfort. Declined Noro, will accept ativan. Given PO and assisted to reposition. SOB with any bed mobility. updated via phone. Requested simple terminology , Do you think this is COVID, is he able to come home today? Clearly given update re: current ICU status worsening condition from 24 hours prior and increased level of care being administered, increased O2 demands. Some difficulty with understanding the critical course of treatment at this time, So are you telling me he is actually sick, with COVID Will continue to explain these details and treatments while the patient is here, to assure understanding and comprehension. Blood Gas obtained @ 1200. Pt is restive to proning, APAP and Ativan given. Side laying at present.
[2021-07-21] MEDS: PANTOPRAZOLE 40 MG VIAL IV (11:20)
[2021-07-21] MEDS: REMDESIVIR 100 MG in SODIUM CHLORIDE 0.9% 230 ML 250 ML IV (11:20)
[2021-07-21] MEDS: ACETAMINOPHEN 325 MG TABLET 650 MG PO (11:47)
[2021-07-21] MEDS: LORazepam 0.5 MG TABLET PO ×2 (11:47→22:23)
[2021-07-21 12:15] LABS: Fractionated Inspired Oxygen 75; HCO3 ABG 31 mmol/L (22-26); Oxygen Saturation ABG 93 % (95-100); PCO2 ABG 39.1 mmHg (35-45); PO2 ABG 60 mmHg (80-100); TCO2 ABG 32 mmol/L (21-31); pH ABG 7.51 (7.35-7.45)
--- NOTE | 2021-07-21 13:32 | PM.PN.1 ---
Subjective Subjective Date Patient Seen: 07/21/21 Time Patient Seen: 08:00 Interval history: This morning he appears still quite short of breath. He was transferred to ICU yesterday due to worsening hypoxemia and respiratory distress. He was started on high flow but had a panic attack with initial high rate of oxygen flow so initial setting were 25L at 70%. He remained on this overnight. As I am speaking to him he desats to the mid 80s and can not complete full sentences. Exam Vital Signs (past 8 hours): - 07/21/21 06:00 07/21/21 06:15 07/21/21 07:45 Temperature Pulse Rate 63 60 73 Respiratory Rate 33 H 33 H 28 H Blood Pressure 129/84 129/84 Pulse Oximetry 95 97 90 L 07/21/21 08:00 07/21/21 09:00 07/21/21 12:00 Temperature 98.1 F 97.8 F Pulse Rate 120 H 71 71 Respiratory Rate 18 24 30 H Blood Pressure 124/69 124/69 112/68 Pulse Oximetry 91 90 L 92 Fraction of Inspired Oxygen 78 Oxygen Delivery Method High Flow Nasal Cannula Oxygen Flow Rate 40 Narrative Exam Narrative: General: mild respiratory distress with increased work of breathing Lungs:? diminished breath sound bilaterally Cardio:? regular rate and rhythm with no murmurs Abdomen:?soft, nontender, nondistended, no organomegaly Skin:?warm, dry, no rashes noted Neuro:?awake alert and oriented, no focal deficits Objective Labs Result Diagrams: 07/21/21 04:43 07/21/21 04:43 Labs: Laboratory Results - last 24 hr 07/20/21 07/20/21 07/21/21 04:35 13:46 04:43 WBC 7.7 RBC 5.12 Hgb 16.4 Hct 47.0 MCV 91.8 MCH 32.0 MCHC 34.8 RDW 12.4 Plt Count 177 D-Dimer ABG pH 7.50 H ABG pCO2 32.2 L ABG pO2 53 L ABG HCO3 25 ABG Total CO2 26 ABG O2 Saturation 90 L ABG Base Excess 2.0 FiO2 55 Sodium Potassium Chloride Carbon Dioxide BUN Creatinine Estimated GFR BUN/Creatinine Ratio Glucose Total Insulin 6.6 C-Peptide 1.5 Calcium Ferritin C-Reactive Protein 07/21/21 07/21/21 07/21/21 04:43 04:43 11:46 WBC RBC Hgb Hct MCV MCH MCHC RDW Plt Count D-Dimer 1746 H ABG pH 7.51 H ABG pCO2 39.1 ABG pO2 60 L ABG HCO3 31 H ABG Total CO2 32 H ABG O2 Saturation 93 L ABG Base Excess 8.0 H FiO2 75 Sodium 132 L Potassium 4.0 Chloride 98 Carbon Dioxide 33 H BUN 25 H Creatinine 0.55 L Estimated GFR > 60.0 BUN/Creatinine Ratio 45.5 H Glucose 233 H Total Insulin C-Peptide Calcium 8.4 Ferritin 1220 H C-Reactive Protein 6.9 H PFSH Medical History (Updated 07/20/21 @ 07:04 by SUE Locke-LAKESHIA) No significant past medical history Surgical History (Updated 07/19/21 @ 03:30 by CESAR Locke) History of appendectomy Family History Mother Cancer Father Heart attack Social History household members: spouse Smoking Status: Never smoker alcohol intake: current Assessment & Plan Assessment & Plan narrative: Mr. Corrales is a 55M who comes in with acute hypoxemic respiratory failure secondary to COVID pneumonia also found to have diabetes. 1. Acute respiratory failure with hypoxia and tachypnea, secondary to COVID pneumonia, acute, present on admission -unfortunately patient is unvaccinated -started on remdesivir and dexamethasone -initially on 3L nasal canula and has been continued to increase to 40L with 80% FiO2 -lovenox 40mg BID ordered -repeat ABG today -maintain O2 sat >90% -continue albuterol PRN -will consider baracitinib of worsens, discussed with patient who wants to think about it before agreeing to proceed -have encouraged proning which has helped slightly with saturations 2. Hyponatremia, acute, present on admission -initial sodium 129 -now improved slightly to 132 3. Diabetes with A1c of 11.8, new diagnosis -started on lantus, and insulin sliding scale -insulin, c-peptide, anti-dashawn ab ordered 4. Low AM cortisol -possibly secondary to adrenal insufficiency -already on dexamethasone -no evidence of adrenal crisis -stim test ordered CODE: Full Surrogate decision maker: Spouse Christianne Corrales Time Spent With Patient Critical Care time: I spent a total of [] minutes of critical care time on this patient's care today; this time is exclusive of procedural time. Quality VTE Deep Vein Thrombosis/Pulmonary Embolism Present on Admission: No
--- NOTE | 2021-07-21 16:07 | DIET.PN1 ---
Addendum entered by Lizbeth Fernandes 07/21/21 16:24: Potential for weight loss previous to admit from covid and/or new diabetes diagnosis. Continue on Ensure max ONS c lunches. Adequate PO Original Note: Dietary Progress Note Assessment: 55 y/o M newly diagnosed with diabetes, currently treated for covid pneumonia. HgA1c of 11.8%. Denies previous hx of diabetes. All recent BG above 180 mg/dL. MAR indicates glargine 40u HS c SSI coverage. If morning fasting BG continue above 180 mg/dL, glargine could be increased if provider agrees. Called Aung today to see what his questions may be about new onset diabetes, acknowledging that this may not be an appropriate time for him given current health condition. States he has not been able to think about it but appreciates the call. States he would like information to read, which is appropriate considering audible SOB. Ht: 177.8 cm Wt: 85.2 kg BMI: 26.9 Last BM: 07/19/21 (07/19/21 21:00) MNA: 8 Mikael Score: 21 Diet: 07/19/21 Breakfast Carbohydrate Consistent Diet Diet Modifications: ONS Ensure Max c lunch Carbohydrate level: Medium (3 CHO) Bedtime snack: Yes Nutrition Percent Meal Consumed 75% 07/21/21 10:00 Percent Meal Consumed 75% 07/20/21 18:21 Percent Meal Consumed 75% 07/20/21 13:29 Percent Meal Consumed 100% 07/20/21 09:24 Labs: RBC 5.12 X10^6/uL (4.5-5.9) 07/21/21 04:43 Hgb 16.4 g/dL (13.5-17.5) 07/21/21 04:43 Hct 47.0 % (41-53) 07/21/21 04:43 Creatinine 0.55 mg/dL (0.66-1.25) L 07/21/21 04:43 Hemoglobin A1c 11.8 % (4.0-6.0) H 07/18/21 22:04 Lactate 1.3 mmol/L (0.7-2.1) 07/18/21 22:04 Ferritin 1220 ng/mL (18-464) H 07/21/21 04:43 NT-Pro-B Natriuret Pep 54 pg/mL (<125) 07/19/21 02:51 Nutrition Diagnosis: Altered nutrition related lab value r/t new diagnosis of diabetes aeb HgA1c of 11.8% Interventions: Provided educational materials on what diabetes is, how it is diagnosed, and carb counting. Provided DM ed contact info for OP care prn. Monitoring/Evaluations: PO, ONS tolerance, glucose, readiness/appropriateness for education
[2021-07-21] MEDS: MELATONIN 3 MG TABLET 6 MG PO (20:33)
[2021-07-21] MEDS: INSULIN GLARGINE 100 UNIT/ML 3ML PEN 40 UNIT SUBCUT (20:36)
[2021-07-21] MEDS: DEXMEDETOMIDINE HCL 400 MCG in SODIUM CHLORIDE 0.9% 96 ML IV (22:23)
--- NOTE | 2021-07-21 22:26 | PM.ICURNDS ---
- :: This patient was not seen due to COVID-19 related infection control measures. Currently on 50 L/min 50% FiO2 via HFNC. Case discussed with RT Charlette and RN; continue present plan.
[2021-07-22] VITALS (21 sets, daily range): BP systolic 100–113; BP diastolic 56–69; PULSE 50–80; RESP 16–32; TEMP 36.8–37.1; O2SAT 89–99
[2021-07-22 05:02] LABS: BUN Creatinine Ratio 54.2 (6-22); Blood Urea Nitrogen 26 mg/dL (9-20); Calcium 8.2 mg/dL (8.4-10.2); Carbon Dioxide 35 mmol/L (22-32); Chloride 99 mmol/L (98-107); Estimated Glomerular Filt Rate > 60.0 mL/min (>60); Glucose 182 mg/dL (70-100); HEMOLYSIS < 15 (0-50); Potassium 3.5 mmol/L (3.4-5.1); Sodium 136 mmol/L (137-145)
--- NOTE | 2021-07-22 07:10 | RT ---
Patinet desaturating during shift with burst of anxiety about clearing his nose and discomfort with the highflowl . Explained there was no mask that could be used with it and that this was the best system for him right now, other than being intubated and placed on a vent. Became less agitated with assistance for blowing his nose with out desaturating and was willing to take some meds for his anxiety from the nurse. FIO2 increased to 65% to bring his SPO2 up to 92% from mid 80's. Stable on the 50L's and 65% for remainder of shift.
[2021-07-22] MEDS: INSULIN LISPRO 100 UNIT/ML 3ML VIAL SUBCUT ×2 (09:04→16:28)
[2021-07-22] MEDS: INSULIN LISPRO 100 UNIT/ML 3ML VIAL 8 UNIT SUBCUT ×2 (09:05→16:29)
[2021-07-22] MEDS: DEXAMETHASONE 10 MG/ML VIAL 6 MG IV (09:06)
[2021-07-22] MEDS: ENOXAPARIN 40 MG/0.4 ML SYRINGE SUBCUT ×2 (09:07→21:18)
[2021-07-22] MEDS: INSULIN GLARGINE 100 UNIT/ML 3ML PEN 25 UNIT SUBCUT ×2 (09:07→21:19)
[2021-07-22] MEDS: PANTOPRAZOLE 40 MG VIAL IV (09:07)
[2021-07-22] MEDS: REMDESIVIR 100 MG in SODIUM CHLORIDE 0.9% 230 ML 250 ML IV (09:08)
[2021-07-22] MEDS: SODIUM CHLORIDE 0.9% FLUSH 10 ML IV ×2 (09:08→21:57)
[2021-07-22] MEDS: HYDROCODONE/ACET 5/325 TABLET 2 TAB PO ×3 (13:53→21:18)
[2021-07-22] MEDS: polyethylene glycoL 3350 17 GM POWD.PACK PO (13:54)
[2021-07-22] MEDS: DOCUSATE 100 MG CAPSULE PO ×2 (13:54→21:18)
--- NOTE | 2021-07-22 16:07 | PM.PN.1 ---
Subjective Subjective Date Patient Seen: 07/22/21 Time Patient Seen: 08:00 Interval history: This morning he is sleepy. He says he feels ok. He is visibly short of breath. He was able to prone 3 hours last night. Exam Vital Signs (past 8 hours): - 07/22/21 09:22 07/22/21 11:10 07/22/21 12:00 Temperature 98.3 F Pulse Rate 64 80 63 Respiratory Rate 24 28 H 17 Blood Pressure 108/68 Pulse Oximetry 89 L 93 93 07/22/21 12:13 07/22/21 13:40 Temperature Pulse Rate 58 L Respiratory Rate 19 32 H Blood Pressure 108/68 Pulse Oximetry 94 94 Fraction of Inspired Oxygen 70 Oxygen Delivery Method Heated High Flow Oxygen Flow Rate 50 Narrative Exam Narrative: General: mild respiratory distress with increased work of breathing Lungs:? diminished breath sound bilaterally Cardio:? regular rate and rhythm with no murmurs Abdomen:?soft, nontender, nondistended, no organomegaly Skin:?warm, dry, no rashes noted Neuro:?awake alert and oriented, no focal deficits Objective Labs Result Diagrams: 07/21/21 04:43 07/22/21 04:30 Labs: Laboratory Results - last 24 hr 07/22/21 04:30 Sodium 136 L Potassium 3.5 Chloride 99 Carbon Dioxide 35 H BUN 26 H Creatinine 0.48 L Estimated GFR > 60.0 BUN/Creatinine Ratio 54.2 H Glucose 182 H Calcium 8.2 L [facility] Medical History (Updated 07/20/21 @ 07:04 by SUE Locke-LAKESHIA) No significant past medical history Surgical History (Updated 07/19/21 @ 03:30 by CESAR Locke) History of appendectomy Family History Mother Cancer Father Heart attack Social History household members: spouse Smoking Status: Never smoker alcohol intake: current Assessment & Plan Assessment & Plan narrative: Mr. Corrales is a 55M who comes in with acute hypoxemic respiratory failure secondary to COVID pneumonia also found to have diabetes. 1. Acute respiratory failure with hypoxia and tachypnea, secondary to COVID pneumonia, acute, present on admission -unfortunately patient is unvaccinated -started on remdesivir and dexamethasone -initially on 3L nasal canula and has been continued to increase to 50L with 70% FiO2 -lovenox 40mg BID ordered -maintain O2 sat >90% -continue albuterol PRN -will consider baracitinib of worsens, discussed with patient who wants to think about it before agreeing to proceed -have encouraged proning which has helped slightly with saturations 2. Hyponatremia, acute, present on admission -initial sodium 129 -now improved slightly to 132 3. Diabetes with A1c of 11.8, new diagnosis -started on lantus, and insulin sliding scale -insulin, c-peptide, anti-dashawn ab ordered 4. Low AM cortisol -possibly secondary to adrenal insufficiency -already on dexamethasone -no evidence of adrenal crisis -stim test ordered CODE: Full Surrogate decision maker: Spouse Christianne Corrales Time Spent With Patient Critical Care time: I spent a total of [] minutes of critical care time on this patient's care today; this time is exclusive of procedural time. Quality VTE Deep Vein Thrombosis/Pulmonary Embolism Present on Admission: No
--- NOTE | 2021-07-22 16:08 | CM.DPC ---
DCP Cont: Per MD, pt continues with need for HHFNC oxygen and per RT pt becoming anxious and desatting but when discussed that current method of oxygen is the best for pt beyond intubation then pt agreeable with anxiety medication and calmed. Pt not medically stable to d/c at this time. Plan: SW to follow closely for pt progress with hopeful weaning of his oxygen needs towards plan of d/c home with spouse and packet of healthcare resources to be provided to pt at d/c as he currently has no health insurance. YASMIN Patricia
--- NOTE | 2021-07-22 21:13 | PM.ICURNDS ---
- :: This patient not seen due to COVID-19 infection control measures. Note: Precedex is off and HFNC is @ 50 L/min with FIO2 55%. Glycemic control is improving after his AC Lispro was adjusted earlier today. Plans discussed with EVANGELINA Cunha RN and RT,
[2021-07-22] MEDS: SENNOSIDES 8.6 MG TABLET 17.2 MG PO (21:18)
[2021-07-22] MEDS: MELATONIN 3 MG TABLET 6 MG PO (21:18)
[2021-07-23] VITALS (17 sets, daily range): BP systolic 110–147; BP diastolic 57–77; PULSE 50–78; RESP 15–32; TEMP 36.1–38.2; O2SAT 89–99
--- NOTE | 2021-07-23 06:32 | DI.RAD.S_ITS ---
PROCEDURE: XR CHEST 1V INDICATIONS: lana TECHNIQUE: One view of the chest was acquired. COMPARISON: [facility], CR, CHEST 1 VIEW, 12/26/2014, 11:45. [facility], CT, PE STUDY (CTA CHEST), 12/26/2014, 12:57. [facility], CR, XR CHEST 1V, 07/19/2021, 0:34. FINDINGS: Surgical changes and devices: None. Lungs and pleura: Low lung volumes are noted. This causes a crowded appearance to the lung markings and limits evaluation. Bilateral patchy interstitial type infiltrates are seen. Which are worsening compared to the prior examination. No pleural effusions or pneumothorax. Mediastinum: Mediastinal contours appear normal. Heart size is normal. Bones and chest wall: No suspicious bony lesions. Overlying soft tissues appear unremarkable. IMPRESSION: Bilateral patchy interstitial infiltrates are seen, which are worse than on the prior examination. These are consistent with the known clinical history of COVID pneumonia. Low lung volumes. No associated effusion is detected. Note: No significant discrepancy from the preliminary report. Dictated by: Quintin Elder M.D. on 07/23/2021 at 6:57 Approved by: Quintin Elder M.D. on 07/23/2021 at 6:59
[2021-07-23] MEDS: PIPERACILLIN/TAZO 4.5 GM in SODIUM CHLORIDE 0.9% 100 ML 200 ML IV (06:41)
[2021-07-23] MEDS: PANTOPRAZOLE DR 40 MG TABLET PO (06:41)
[2021-07-23 06:49] LABS: Add Manual Diff / Slide Review NO; Basophils Absolute Auto 0 /uL (0-100); Basophils Percent Auto 0.4 % (0-2); Eosinophils Absolute Auto 0 /uL (0-450); Eosinophils Percent Auto 0.2 % (2-4); Hematocrit 48.8 % (41-53); Hemoglobin 16.7 g/dL (13.5-17.5); Lymphocytes Absolute Auto 1300 /uL (1100-4500); Lymphocytes Percent Auto 13.3 % (25-40); Mean Corpuscular HGB Conc 34.2 % (30-36); Mean Corpuscular Hemoglobin 31.8 PG (26-34); Monocytes Absolute Auto 600 /uL (0-900); Monocytes Percent Auto 5.9 % (3-14); Neutrophils Absolute Auto 7900 /uL (1500-7000); Neutrophils Percent Auto 80.2 % (50-75); Platelet Count 201 X10^3/uL (150-400); Red Blood Cell Count 5.25 X10^6/uL (4.5-5.9); Red Cell Distribution Width 12.3 % (11.6-14.8); White Blood Cell Count 9.8 X10^3/uL (4.5-11.0)
[2021-07-23 06:59] LABS: Alanine Aminotransferase 27 IU/L (<50); Albumin 3.1 g/dL (3.5-5.0); Alkaline Phosphatase 55 U/L (38-126); Aspartate Aminotransferase 36 IU/L (17-59); BUN Creatinine Ratio 35.4 (6-22); Bilirubin Total 0.9 mg/dL (0.2-1.3); Blood Urea Nitrogen 23 mg/dL (9-20); Calcium 8.5 mg/dL (8.4-10.2); Carbon Dioxide 39 mmol/L (22-32); Chloride 96 mmol/L (98-107); Estimated Glomerular Filt Rate > 60.0 mL/min (>60); Glucose 76 mg/dL (70-100); HEMOLYSIS < 15 (0-50); Magnesium 1.9 mg/dL (1.6-2.3); Potassium 3.2 mmol/L (3.4-5.1); Sodium 136 mmol/L (137-145); Total Protein 6.1 g/dL (6.3-8.2)
[2021-07-23] MEDS: HYDROCODONE/ACET 5/325 TABLET 2 TAB PO ×3 (07:03→20:33)
--- NOTE | 2021-07-23 07:18 | PC.NURSE ---
Around 0600 this morning, pt called c/o shortness of breath and chills, RT called and placed pt. on 60L HHFNC, [id number], plus 15L non rebreather. Tele ICU submarine diver called, given report of pt. and after submarine diver assessed the pt. and ordered blood and sputum culture, antibiotics, CBC, CMP and all these were ordered by PAINTINGS CONSERVATOR who was present by the pt's. door while submarine diver was making the orders. 0739 Pt. then c/o bilateral hip pain which I gave 2 tabs of [place] started and report given to day shift RN. Pt. currently on HHFNC at 60L, 100% Fi02.
[2021-07-23] MEDS: DEXAMETHASONE 10 MG/ML VIAL 6 MG IV (08:06)
[2021-07-23] MEDS: SODIUM CHLORIDE 0.9% FLUSH 10 ML IV ×2 (08:06→20:32)
[2021-07-23] MEDS: VANCOMYCIN 2,000 MG/400 ML PIGGYBACK 200 MG IV (08:08)
[2021-07-23] MEDS: ENOXAPARIN 40 MG/0.4 ML SYRINGE SUBCUT ×2 (08:08→20:32)
[2021-07-23] MEDS: DOCUSATE 100 MG CAPSULE PO (08:08)
[2021-07-23] MEDS: INSULIN GLARGINE 100 UNIT/ML 3ML PEN 15 UNIT SUBCUT (09:04)
[2021-07-23] MEDS: REMDESIVIR 100 MG in SODIUM CHLORIDE 0.9% 230 ML 250 ML IV (09:48)
[2021-07-23] MEDS: IBUPROFEN 600 MG TABLET PO (09:50)
[2021-07-23] MEDS: PIPERACILLIN/TAZO 3.375 GM in SODIUM CHLORIDE 0.9% 100 ML 25 ML IV ×2 (12:18→19:33)
[2021-07-23] MEDS: INSULIN LISPRO 100 UNIT/ML 3ML VIAL SUBCUT ×5 (12:20→20:30)
--- NOTE | 2021-07-23 13:00 | P.PN_ITS ---
Subjective Subjective Date Patient Seen: 07/23/21 Time Patient Seen: 08:00 Interval history: This morning he became short of breath and his blood pressure dropped. He was also found to have a fever. He was placed on max setting for high flow at 60L/100%. Cultures were ordered. Chest xray ordered and showed worsening infiltrates. He was started on vancomycin and zosyn. He was able to be weaned down slightly on the setting to 60L/80% after this. PICC line ordered Exam Vital Signs (past 8 hours): - 07/23/21 06:21 07/23/21 07:00 07/23/21 07:30 Temperature 100.8 F H 97.8 F Pulse Rate 78 65 Respiratory Rate 32 H Blood Pressure 147/77 H 135/75 Pulse Oximetry 89 L 99 07/23/21 08:00 07/23/21 10:30 07/23/21 12:00 Temperature 98.8 F 98.1 F Pulse Rate 74 61 Respiratory Rate 21 20 19 Blood Pressure 120/66 111/70 Pulse Oximetry 96 95 95 Fraction of Inspired Oxygen 90 Oxygen Delivery Method Heated High Flow Oxygen Flow Rate 60 Narrative Exam Narrative: General: mild respiratory distress with increased work of breathing Lungs: diminished breath sound bilaterally Cardio: regular rate and rhythm with no murmurs Abdomen: soft, nontender, nondistended, no organomegaly Skin: warm, dry, no rashes noted Neuro: awake alert and oriented, no focal deficits Objective Labs Result Diagrams: 07/23/21 06:20 07/23/21 06:20 Labs: Laboratory Results - last 24 hr 07/23/21 07/23/21 06:20 06:20 WBC 9.8 RBC 5.25 Hgb 16.7 Hct 48.8 MCV 93.0 MCH 31.8 MCHC 34.2 RDW 12.3 Plt Count 201 Neut % (Auto) 80.2 H Lymph % (Auto) 13.3 L Edmunds % (Auto) 5.9 Eos % (Auto) 0.2 L Baso % (Auto) 0.4 Neut # (Auto) 7900 H Lymph # (Auto) 1300 Edmunds # (Auto) 600 Eos # (Auto) 0 Baso # (Auto) 0 Sodium 136 L Potassium 3.2 L Chloride 96 L Carbon Dioxide 39 H BUN 23 H Creatinine 0.65 L Estimated GFR > 60.0 BUN/Creatinine Ratio 35.4 H Glucose 76 D Calcium 8.5 Magnesium 1.9 Total Bilirubin 0.9 AST 36 ALT 27 Alkaline Phosphatase 55 Total Protein 6.1 L Albumin 3.1 L Globulin 3.0 Albumin/Globulin Ratio 1.0 [facility] Medical History (Updated 07/20/21 @ 07:04 by Eloise Cunha [facility]) No significant past medical history Surgical History ([facility] 07/19[facility]21 @ 03[facility] History of appendectomy Family History Mother Cancer Father Heart attack Social History household members: spouse Smoking Status: Never smoker alcohol intake: current Assessment & Plan Assessment & Plan narrative: Mr. Corrales is a 55M who comes in with acute hypoxemic respiratory failure secondary to COVID pneumonia also found to have diabetes. 1. Acute respiratory failure with hypoxia and tachypnea, secondary to COVID pneumonia, acute, present on admission -unfortunately patient is unvaccinated -started on remdesivir and dexamethasone -initially on 3L nasal canula and has been continued to increase to 60L with 100% FiO2 -lovenox 40mg BID ordered -maintain O2 sat >90% -continue albuterol PRN -discussed baracitinib which patient declined -have encouraged proning which has helped slightly with saturations 2. Fever -blood cultures ordered -chest xray showed worsening infiltrates -sputum ordered, but currently has no productive cough -urinalysis ordered with reflex culture ordered -vanco/zosyn started -PICC ordered -procalcitonin, d-dimer ordered 2. Hyponatremia, acute, resolved -initial sodium 129 -now improved with fluids 3. Diabetes with A1c of 11.8, new diagnosis -started on lantus, and insulin sliding scale -insulin, c-peptide, anti-dashawn ab ordered 4. Low AM cortisol -possibly secondary to adrenal insufficiency -already on dexamethasone -no evidence of adrenal crisis -stim test ordered CODE: Full Surrogate decision maker: Spouse Christianne Corrales Time Spent With Patient Critical Care time: I spent a total of [] minutes of critical care time on this patient's care today; this time is exclusive of procedural time. Quality VTE Deep Vein Thrombosis/Pulmonary Embolism Present on Admission: No
[2021-07-23] MEDS: polyethylene glycoL 3350 17 GM POWD.PACK PO (13:48)
[2021-07-23 14:26] LABS: Appearance Urine UA CLEAR; Bilirubin Urine UA NEGATIVE (NEGATIVE); Color Urine UA YELLOW; Glucose Urine UA 2+ g/dL (Negative); Ketones Urine UA 1+ (NEGATIVE); Leukocyte Esterase Urine UA NEGATIVE (NEGATIVE); Nitrite Urine UA NEGATIVE (Negative); Occult Blood Urine UA NEGATIVE (Negative); Protein Urine UA NEGATIVE (Negative); Urobilinogen Urine UA 0.2 E.U./dL (0.2)
[2021-07-23 14:36] LABS: Amorphous Sediment Urine 1+; Culture Indicated Urine Cult Not Indicated; RBC Urine None Seen (0-5/HPF); WBC Urine 0-1/HPF (0-5/HPF)
[2021-07-23 14:42] LABS: Bacteria Urine None Seen
[2021-07-23] MEDS: VANCOMYCIN 1,250 MG/250 ML PIGGYBACK 250 MG IV (15:59)
[2021-07-23] MEDS: LORazepam 0.5 MG TABLET PO ×2 (15:59→20:32)
--- NOTE | 2021-07-23 18:48 | RT ---
talked with Dr. Gardner about getting a sputum sample and we going to hold off at this time asked if he really wanted it would be NTS. patient trending towards getting tubed. strong dry cough and was unable to get a sample today.
[2021-07-23] MEDS: INSULIN GLARGINE 100 UNIT/ML 3ML PEN 25 UNIT SUBCUT (20:31)
[2021-07-23] MEDS: MELATONIN 3 MG TABLET 6 MG PO (20:33)
--- NOTE | 2021-07-23 20:53 | PM.ICURNDS ---
- Date Patient Seen: 07/23/21 Time Patient Seen: 20:54 :: This patient was seen via real time interactive two-way audiovisual telecommunication. Note: Did have episode of desaturation which required 100% HFNC and 15L/min NRB--he is back down to 60 L/min and 65% FiO2. Glycemic control is erratic; currently hyperglycemic but was also hypoglycemic due to poor PO intake. Started on vancomycin and Zosyn by tele-civilian jail officer Jared. He is self-proning as well. Overall condition is essentially unchanged. Using cell phone via camera. Labs/orders reviewed. INTERVENTIONS -Ordered MRSA PCR-->if (-) would discontinue vancomycin -Continue remainder of present management. Discussed with RN and RT.
[2021-07-24] VITALS (12 sets, daily range): BP systolic 100–140; BP diastolic 58–85; PULSE 53–76; RESP 17–26; TEMP 35.8–37.7; O2SAT 89–98
[2021-07-24] MEDS: VANCOMYCIN 1,250 MG/250 ML PIGGYBACK 250 MG IV (00:27)
[2021-07-24] MEDS: PIPERACILLIN/TAZO 3.375 GM in SODIUM CHLORIDE 0.9% 100 ML 25 ML IV ×3 (03:07→19:30)
[2021-07-24 04:35] LABS: Hematocrit 42.1 % (41-53); Hemoglobin 14.3 g/dL (13.5-17.5); Mean Corpuscular HGB Conc 34.1 % (30-36); Mean Corpuscular Hemoglobin 31.7 PG (26-34); Mean Corpuscular Volume 93.1 fL (80-100); Platelet Count 178 X10^3/uL (150-400); Red Blood Cell Count 4.52 X10^6/uL (4.5-5.9); Red Cell Distribution Width 12.5 % (11.6-14.8); White Blood Cell Count 9.6 X10^3/uL (4.5-11.0)
[2021-07-24 04:49] LABS: BUN Creatinine Ratio 35.9 (6-22); Blood Urea Nitrogen 23 mg/dL (9-20); Calcium 8.1 mg/dL (8.4-10.2); Carbon Dioxide 37 mmol/L (22-32); Chloride 99 mmol/L (98-107); Estimated Glomerular Filt Rate > 60.0 mL/min (>60); Glucose 160 mg/dL (70-100); HEMOLYSIS < 15 (0-50); Potassium 4.1 mmol/L (3.4-5.1); Sodium 136 mmol/L (137-145)
[2021-07-24 05:03] LABS: Procalcitonin 0.16 ng/mL (<0.5)
[2021-07-24 05:27] LABS: D Dimer > 5250 ng/mL (<230)
[2021-07-24] MEDS: ACETAMINOPHEN 325 MG TABLET 650 MG PO (06:56)
[2021-07-24] MEDS: DEXAMETHASONE 10 MG/ML VIAL 6 MG IV (07:53)
[2021-07-24] MEDS: PANTOPRAZOLE DR 40 MG TABLET PO (07:53)
[2021-07-24] MEDS: ENOXAPARIN 40 MG/0.4 ML SYRINGE SUBCUT ×2 (07:53→20:40)
[2021-07-24] MEDS: SODIUM CHLORIDE 0.9% FLUSH 10 ML IV ×2 (07:54→20:39)
[2021-07-24] MEDS: INSULIN GLARGINE 100 UNIT/ML 3ML PEN 25 UNIT SUBCUT ×2 (07:56→21:42)
[2021-07-24] MEDS: REMDESIVIR 100 MG in SODIUM CHLORIDE 0.9% 230 ML 250 ML IV (09:18)
[2021-07-24] MEDS: IBUPROFEN 600 MG TABLET PO (09:18)
--- NOTE | 2021-07-24 14:30 | PC.NURSE ---
Pt would like to shower. Placed pt on 15L NRB and noted SPO2 96-98% RR 20s. Placed pt on high flow nasal cannula at 10L. SPO2 92%. RR 20s. Pt tolerating without issue. Hospitalist on rounds at this time. States ok for pt to take shower on high flow nasal cannula. Pt able to walk to shower independently with steady gait and shower independently. Will monitor.
--- NOTE | 2021-07-24 14:36 | P.PN_ITS ---
Subjective Subjective Interval history: 55-year-old man here on day 5 for COVID pneumonia, acute respiratory failure. Overall the patient is making significant improvement. He has been tapered off heated high-flow and is now on a non-rebreather. Patient was transition to 10 L non-rebreather without difficulty. Patient continues to have low-grade fevers. ProBNP is elevated at over 5000. Exam Vital Signs (past 8 hours): - 07/24/21 06:56 07/24/21 07:50 07/24/21 10:15 Temperature 100 F H 98.6 F Pulse Rate 70 69 Respiratory Rate 21 26 H Blood Pressure 114/63 114/63 Pulse Oximetry 89 L 94 07/24/21 11:15 07/24/21 11:44 Temperature 99.2 F Pulse Rate 65 Respiratory Rate 20 Blood Pressure 120/74 Pulse Oximetry 91 Fraction of Inspired Oxygen 65 Oxygen Delivery Method Heated High Flow Oxygen Flow Rate 6 Narrative Exam Narrative: Pleasant male ill-appearing but in no obvious distress HENMT Other: Normocephalic atraumatic, extraocular muscles are intact, Neck Other: Neck is supple Resp Other: Lungs decreased breath sounds with occasional scattered crackle Cardio Other: Cardiac exam: Regular rate and rhythm normal S1-S2 GI Other: Abdomen: Soft nontender nondistended Extrem Other: Extreme extremities: No edema Objective Labs Result Diagrams: 07/24/21 04:20 07/24/21 04:20 Labs: Laboratory Results - last 24 hr 07/23/21 07/23/21 07/24/21 14:21 22:05 04:20 WBC 9.6 RBC 4.52 Hgb 14.3 Hct 42.1 MCV 93.1 MCH 31.7 MCHC 34.1 RDW 12.5 Plt Count 178 D-Dimer Sodium Potassium Chloride Carbon Dioxide BUN Creatinine Estimated GFR BUN/Creatinine Ratio Glucose Calcium Procalcitonin Urine RBC None seen Urine WBC 0-1/hpf Amorphous Sediment 1+ Urine Bacteria None seen Ur Culture Indicated? Cult not indicated Nasal Screen MRSA (PCR) Negative for mrsa 07/24/21 07/24/21 04:20 04:20 WBC RBC Hgb Hct MCV MCH MCHC RDW Plt Count D-Dimer > 5250 H Sodium 136 L Potassium 4.1 Chloride 99 Carbon Dioxide 37 H BUN 23 H Creatinine 0.64 L Estimated GFR > 60.0 BUN/Creatinine Ratio 35.9 H Glucose 160 H Calcium 8.1 L Procalcitonin 0.16 Urine RBC Urine WBC Amorphous Sediment Urine Bacteria Ur Culture Indicated? Nasal Screen MRSA (PCR) [facility] Medical History (Updated 07/20/21 @ 07:04 by [facility] No significant past medical history Surgical History (Updated 07/19/21 @ 03:30 by SUE LockeLAKESHIA) History of appendectomy Family History Mother Cancer Father Heart attack Social History household members: spouse Smoking Status: Never smoker alcohol intake: current Assessment & Plan Assessment & Plan narrative: ?Acute respiratory failure with hypoxia and tachypnea, secondary to COVID pneumonia, acute, present on admission -unfortunately patient is unvaccinated -started on remdesivir and dexamethasone -initially on 3L nasal canula and has been continued to increase to 60L with 100% FiO2 -lovenox 40mg BID ordered -maintain O2 sat >90% -continue albuterol PRN -discussed baracitinib which patient declined -have encouraged proning which has helped slightly with saturations -patient has been able to taper off high-flow oxygen, now on 10 L of oxygen which she has talked -D-dimer elevated at greater than 5000, will obtain CT angio to rule out pulmonary embolus -will continue b.i.d. dosing of Lovenox -procalcitonin negative, MRSA PCR negative, will discontinue vancomycin 2. Fever -blood cultures ordered -chest xray showed worsening infiltrates -sputum ordered, but currently has no productive cough -urinalysis ordered with reflex culture ordered -vanco/zosyn started -PICC ordered -procalcitonin, d-dimer ordered -will obtain CT angio of the chest to rule out PE, discontinue vanco given the negative MRSA screen 2. Hyponatremia, acute, resolved -initial sodium 129 -now improved with fluids -serum sodium 136 today 3. Diabetes with A1c of 11.8, new diagnosis -started on lantus, and insulin sliding scale -insulin, c-peptide, anti-dashawn ab ordered -blood sugars still elevated continue Lantus and sliding scale 4. Low AM cortisol -possibly secondary to adrenal insufficiency -already on dexamethasone -no evidence of adrenal crisis -stim test ordered CODE: Full Surrogate decision maker: Spouse Christianne Corrales Time Spent With Patient Critical Care time: I spent a total of [] minutes of critical care time on this patient's care today; this time is exclusive of procedural time. Quality VTE Deep Vein Thrombosis/Pulmonary Embolism Present on Admission: No
--- NOTE | 2021-07-24 14:41 | DI.CT.S_ITS ---
PROCEDURE: CT ANGIO CHEST PE PROTOCOL INDICATIONS: elevated D-dimer, Hypoxic, fever, Covid-19+ TECHNIQUE: After the administration of intravenous contrast, 2 mm thick sections acquired from the pulmonary apices to the posterior costophrenic angles. 3-dimensional maximum intensity projection (MIP) coronal and sagittal reformats were then acquired through the thorax. For radiation dose reduction, the following was used: automated exposure control, adjustment of mA and/or kV according to patient size. COMPARISON: [facility], CR, XR CHEST 1V, 07/23/2021, 6:35. [facility], CT, PE STUDY (CTA CHEST), 12/26/2014, 12:57. FINDINGS: Image quality: Excellent. Pulmonary arteries: Pulmonary arteries are normal in size, and demonstrate no intraluminal filling defects to suggest central pulmonary embolism. Lungs and pleura: There is a diffuse appearance of bilateral patchy and consolidative opacities, with significant areas of ground-glass attenuation. Appearance is similar compared to chest x-ray of 07/23/2021. Minimal to mild bilateral effusions. Mediastinum: Heart size is normal, without pericardial effusion. There are multiple enlarged hilar and mediastinal lymph nodes, the largest at the fatimah measuring 1.5 cm. Thoracic aorta is normal in caliber and enhancement. Esophagus is normal in caliber, with mild hiatal hernia. Bones and chest wall: No suspicious bony lesions. Ribs and thoracic spine appear intact throughout. Thyroid gland is not fully included within the field of view.. No axillary or supraclavicular adenopathy. Abdomen: Visualized upper abdominal solid organs appear normal in the early arterial phase of enhancement. IMPRESSION: 1. Extensive bilateral and pulmonary opacities including significant ground-glass attenuation within the lungs bilaterally most consistent with pneumonia. Mediastinal and hilar adenopathy is present likely reactive. Recommend interval follow-up to document resolution. Dictated by: Delaney Mendes M.D. on 07/24/2021 at 15:32 Approved by: Delaney Mendes M.D. on 07/24/2021 at 15:35
[2021-07-24 15:07] LABS: Proinsulin 5.5 pmol/L (0.0-10.0)
[2021-07-24] MEDS: INSULIN LISPRO 100 UNIT/ML 3ML VIAL SUBCUT ×2 (17:00→21:44)
[2021-07-24] MEDS: DOCUSATE 100 MG CAPSULE PO (20:38)
[2021-07-24] MEDS: SENNOSIDES 8.6 MG TABLET 17.2 MG PO (20:38)
--- NOTE | 2021-07-24 20:47 | PM.ICURNDS ---
- Date Patient Seen: 07/24/21 Time Patient Seen: 20:47 :: This patient was seen via real time interactive two-way audiovisual telecommunication. Note: patient downgraded to floor status. pt is afebrile, HD stable, comfortable speaking full sentences continue to wean fi02 please recall ICU prn
[2021-07-24] MEDS: MELATONIN 3 MG TABLET 6 MG PO (21:40)
--- NOTE | 2021-07-24 22:10 | PC.NURSE ---
Report received, care assumed 1530. Per order, changed to floor status without telemetry. Pt A&Ox4, VSS, denies pain other than positional hip/back discomfort. On 13 liters HFNC throughout shift. Oyxgen saturations anywhere from 88-93%, without respiratory distress. Pt. reports feeling the best he's felt since admission. Encouraged to position to prone or side-lying. Per Dr. Brown, patient escort, okay to accept oxygen saturation of 85% if pt verbal, comfortable, without distress.
[2021-07-25] VITALS (11 sets, daily range): BP systolic 119–155; BP diastolic 64–85; PULSE 54–84; RESP 18–23; TEMP 36.6–37; O2SAT 87–94
[2021-07-25] MEDS: PIPERACILLIN/TAZO 3.375 GM in SODIUM CHLORIDE 0.9% 100 ML 25 ML IV ×2 (03:36→11:27)
[2021-07-25] MEDS: SODIUM CHLORIDE 0.9% FLUSH 10 ML IV ×2 (03:36→21:15)
[2021-07-25] MEDS: DOCUSATE 100 MG CAPSULE PO ×2 (08:18→21:14)
[2021-07-25] MEDS: PANTOPRAZOLE DR 40 MG TABLET PO (08:18)
[2021-07-25] MEDS: DEXAMETHASONE 10 MG/ML VIAL 6 MG IV (08:18)
[2021-07-25] MEDS: ENOXAPARIN 40 MG/0.4 ML SYRINGE SUBCUT ×2 (08:18→21:11)
[2021-07-25] MEDS: REMDESIVIR 100 MG in SODIUM CHLORIDE 0.9% 230 ML 250 ML IV (08:27)
[2021-07-25] MEDS: INSULIN LISPRO 100 UNIT/ML 3ML VIAL SUBCUT ×7 (08:46→21:41)
[2021-07-25] MEDS: INSULIN GLARGINE 100 UNIT/ML 3ML PEN 25 UNIT SUBCUT ×2 (08:46→21:13)
[2021-07-25] MEDS: LORazepam 0.5 MG TABLET PO ×2 (11:27→21:12)
[2021-07-25] MEDS: HYDROCODONE/ACET 5/325 TABLET 2 TAB PO ×3 (11:30→21:12)
[2021-07-25 16:36] LABS: GAD-65 Antibody <5.0 U/mL (0.0-5.0)
--- NOTE | 2021-07-25 18:26 | P.PN_ITS ---
Subjective Subjective Date Patient Seen: 07/25/21 Time Patient Seen: 18:26 Interval history: Patient is a 55-year-old male hospitalized for acute respiratory failure secondary to COVID pneumonia. Patient continues to require high levels of oxygen. He is currently on 15 L of oxygen to maintain a saturation of 92% Exam Vital Signs (past 8 hours): - 07/25/21 12:00 07/25/21 15:51 Temperature 98.6 F 98.4 F Pulse Rate 84 54 L Respiratory Rate 18 22 Blood Pressure 126/81 149/85 H Pulse Oximetry 90 L 92 Fraction of Inspired Oxygen 65 Oxygen Delivery Method High Flow Nasal Cannula Oxygen Flow Rate 12 Narrative Exam Narrative: Pleasant male lying in bed in no obvious distress Resp Other: Decreased breath sounds with occasional crackles bilaterally Cardio Other: Regular rate and rhythm normal S1-S2 GI Other: Abdomen soft nontender nondistended Extrem Other: Extremity no edema Objective Labs Result Diagrams: 07/24/21 04:20 07/24/21 04:20 Labs: Laboratory Results - last 24 hr 07/20/21 04:35 Anti-MORELIA 65 Antibody <5.0 [facility] Medical History (Updated 07/20/21 @ 07:04 by SUE Locke-LAKESHIA) No significant past medical history Surgical History (Updated 07/19/21 @ 03:30 by CESAR Locke) History of appendectomy Family History Mother Cancer Father Heart attack Social History household members: spouse Smoking Status: Never smoker alcohol intake: current Assessment & Plan Assessment & Plan narrative: Acute respiratory failure with hypoxia and tachypnea, secondary to COVID pneumonia, acute, present on admission -unfortunately patient is unvaccinated -started on remdesivir and dexamethasone -initially on 3L nasal canula and has been continued to increase to 60L with 100% FiO2 -lovenox 40mg BID ordered -maintain O2 sat >90% -continue albuterol PRN -discussed baracitinib which patient declined -have encouraged proning which has helped slightly with saturations -patient has been able to taper off high-flow oxygen, now on 10 L of oxygen which she has talked -D-dimer elevated at greater than 5000, will obtain CT angio to rule out pulmonary embolus -will continue b.i.d. dosing of Lovenox -procalcitonin negative, MRSA PCR negative, will discontinue vancomycin -CTA Extensive bilateral and pulmonary opacities including significant ground- glass attenuation within the lungs bilaterally most consistent with pneumonia.? Mediastinal and hilar adenopathy is present likely reactive.? Recommend interval follow-up to document resolution.? -continue oxygen until able to taper 2. Fever -blood cultures ordered -chest xray showed worsening infiltrates -sputum ordered, but currently has no productive cough -urinalysis ordered with reflex culture ordered -vanco/zosyn started -PICC ordered -procalcitonin, d-dimer ordered -will obtain CT angio of the chest to rule out PE, discontinue vanco given the negative MRSA screen -procalcitonin normal -will discontinue Zosyn 2. Hyponatremia, acute, resolved -initial sodium 129 -now improved with fluids -serum sodium 136 today 3. Diabetes with A1c of 11.8, new diagnosis -started on lantus, and insulin sliding scale -insulin, c-peptide, anti-morelia ab ordered -blood sugars still elevated continue Lantus and sliding scale 4. Low AM cortisol -possibly secondary to adrenal insufficiency -already on dexamethasone -no evidence of adrenal crisis -stim test ordered Time Spent With Patient Critical Care time: I spent a total of [] minutes of critical care time on this patient's care today; this time is exclusive of procedural time. Quality VTE Deep Vein Thrombosis/Pulmonary Embolism Present on Admission: No
[2021-07-25] MEDS: MELATONIN 3 MG TABLET 6 MG PO (21:11)
[2021-07-25] MEDS: SENNOSIDES 8.6 MG TABLET 17.2 MG PO (21:12)
[2021-07-26] VITALS (18 sets, daily range): BP systolic 114–147; BP diastolic 63–85; PULSE 48–84; RESP 21–32; TEMP 36.2–37.8; O2SAT 86–97
[2021-07-26] MEDS: PANTOPRAZOLE DR 40 MG TABLET PO (05:43)
[2021-07-26 05:45] LABS: Add Manual Diff / Slide Review NO; Basophils Absolute Auto 0 /uL (0-100); Basophils Percent Auto 0.4 % (0-2); Eosinophils Absolute Auto 100 /uL (0-450); Eosinophils Percent Auto 0.5 % (2-4); Hematocrit 47.1 % (41-53); Hemoglobin 15.8 g/dL (13.5-17.5); Lymphocytes Absolute Auto 1000 /uL (1100-4500); Mean Corpuscular HGB Conc 33.6 % (30-36); Mean Corpuscular Hemoglobin 31.6 PG (26-34); Mean Corpuscular Volume 94.2 fL (80-100); Monocytes Absolute Auto 800 /uL (0-900); Monocytes Percent Auto 7.3 % (3-14); Neutrophils Absolute Auto 8500 /uL (1500-7000); Neutrophils Percent Auto 81.8 % (50-75); Platelet Count 215 X10^3/uL (150-400); Red Cell Distribution Width 12.8 % (11.6-14.8); White Blood Cell Count 10.4 X10^3/uL (4.5-11.0)
[2021-07-26 05:55] LABS: Alanine Aminotransferase 53 IU/L (<50); Albumin 3.1 g/dL (3.5-5.0); Alkaline Phosphatase 59 U/L (38-126); Aspartate Aminotransferase 52 IU/L (17-59); BUN Creatinine Ratio 33.8 (6-22); Bilirubin Total 0.6 mg/dL (0.2-1.3); Blood Urea Nitrogen 22 mg/dL (9-20); Calcium 8.2 mg/dL (8.4-10.2); Carbon Dioxide 39 mmol/L (22-32); Chloride 97 mmol/L (98-107); Estimated Glomerular Filt Rate > 60.0 mL/min (>60); Globulin 3.1 g/dL (1.7-4.1); Glucose 129 mg/dL (70-100); HEMOLYSIS < 15 (0-50); Potassium 4.1 mmol/L (3.4-5.1); Sodium 137 mmol/L (137-145); Total Protein 6.2 g/dL (6.3-8.2)
[2021-07-26 06:12] LABS: Procalcitonin 0.22 ng/mL (<0.5)
--- NOTE | 2021-07-26 06:55 | PC.NURSE ---
0640 07/26/2021 Patient ambulates to the bathroom, on 15L high flow nasal cannula, to have a large bowel movement. Ambulates back to bed but decompensates while dangling upon return. Patient is proned and encouraged to recover, a process which requires ~6 minutes and the addition of a non-rebreather mask at 15L. Sats fell to mid seventies but heart rate remained < 100. Patient encouraged to prone as much as possible.
[2021-07-26] MEDS: ENOXAPARIN 40 MG/0.4 ML SYRINGE SUBCUT ×2 (08:34→20:06)
[2021-07-26] MEDS: DEXAMETHASONE 10 MG/ML VIAL 6 MG IV (08:34)
[2021-07-26] MEDS: DOCUSATE 100 MG CAPSULE PO ×2 (08:34→20:07)
[2021-07-26] MEDS: IBUPROFEN 600 MG TABLET PO (08:34)
[2021-07-26] MEDS: SODIUM CHLORIDE 0.9% FLUSH 10 ML IV (08:34)
[2021-07-26] MEDS: LORazepam 0.5 MG TABLET PO ×3 (08:34→21:34)
[2021-07-26] MEDS: INSULIN LISPRO 100 UNIT/ML 3ML VIAL SUBCUT ×6 (08:43→20:09)
[2021-07-26] MEDS: REMDESIVIR 100 MG in SODIUM CHLORIDE 0.9% 230 ML 250 ML IV (08:46)
[2021-07-26] MEDS: INSULIN GLARGINE 100 UNIT/ML 3ML PEN 25 UNIT SUBCUT ×2 (08:46→20:08)
--- NOTE | 2021-07-26 11:13 | P.PN_ITS ---
Subjective Subjective Interval history: 55 y/o male admitted with respiratory failure secondary to Covid pneumonia. Patient continues to be hypoxic. He is now on 15 liters and desaturates with minimal movement No complaints, occassional cough Exam Vital Signs (past 8 hours): - 07/26/21 03:44 07/26/21 04:00 07/26/21 05:00 Temperature 98.0 F Pulse Rate 56 L 72 Respiratory Rate 24 Blood Pressure 145/84 H Pulse Oximetry 93 91 89 L 07/26/21 06:00 07/26/21 07:30 07/26/21 08:00 Temperature 100.0 F H Pulse Rate 59 L 84 Respiratory Rate 32 H Blood Pressure 147/83 H Pulse Oximetry 93 96 86 L 07/26/21 08:34 07/26/21 09:35 Temperature 100.0 F H Pulse Rate 62 Respiratory Rate 21 Blood Pressure Pulse Oximetry 94 Fraction of Inspired Oxygen 65 Oxygen Delivery Method High Flow Nasal Cannula,Non -Rebreather Oxygen Flow Rate 15 Narrative Exam Narrative: Pleasant ill appearing male, short of breeath Resp Other: Lungs: decreased breath sounds with occassional scattered crackles Cardio Other: RRR nl Sl S2 GI Other: Abd: soft/ non tender/ non distended Extrem Other: no edema Objective Labs Result Diagrams: 07/26/21 05:30 07/26/21 05:30 Labs: Laboratory Results - last 24 hr 07/20/21 07/26/21 07/26/21 04:35 05:30 05:30 WBC 10.4 RBC 5.00 Hgb 15.8 Hct 47.1 MCV 94.2 MCH 31.6 MCHC 33.6 RDW 12.8 Plt Count 215 Neut % (Auto) 81.8 H Lymph % (Auto) 10.0 L Grundy % (Auto) 7.3 Eos % (Auto) 0.5 L Baso % (Auto) 0.4 Neut # (Auto) 8500 H Lymph # (Auto) 1000 L Grundy # (Auto) 800 Eos # (Auto) 100 Baso # (Auto) 0 Sodium 137 Potassium 4.1 Chloride 97 L Carbon Dioxide 39 H BUN 22 H Creatinine 0.65 L Estimated GFR > 60.0 BUN/Creatinine Ratio 33.8 H Glucose 129 H Calcium 8.2 L Total Bilirubin 0.6 AST 52 ALT 53 H Alkaline Phosphatase 59 Total Protein 6.2 L Albumin 3.1 L Globulin 3.1 Albumin/Globulin Ratio 1.0 Procalcitonin 0.22 Anti-MORELIA 65 Antibody <5.0 [facility] Medical History (Updated 07/20/21 @ 07:04 by CESAR Locke) No significant past medical history Surgical History (Updated 07/19/21 @ 03:30 by CESAR Locke) History of appendectomy Family History Mother Cancer Father Heart attack Social History household members: spouse Smoking Status: Never smoker alcohol intake: current Assessment & Plan Assessment & Plan narrative: Acute respiratory failure with hypoxia and tachypnea, secondary to COVID pneumonia, acute, present on admission -unfortunately patient is unvaccinated -started on remdesivir and dexamethasone, day #9, will continue for one more day -initially on 3L nasal canula and has been continued to increase to 60L with 100% FiO2 -lovenox 40mg BID ordered -maintain O2 sat >90% -continue albuterol PRN -discussed baracitinib which patient declined- continues to decline -have encouraged proning which has helped slightly with saturations -patient has been able to taper off high-flow oxygen, now on 10 L of oxygen which she has talked -D-dimer elevated at greater than 5000, will obtain CT angio to rule out pulmonary embolus -will continue b.i.d. dosing of Lovenox -procalcitonin negative, MRSA PCR negative, will discontinue vancomycin -CTA negative for PE Extensive bilateral and pulmonary opacities including significant ground- glass attenuation within the lungs bilaterally most consistent with pneumonia.? Mediastinal and hilar adenopathy is present likely reactive.? Recommend interval follow-up to document resolution.? -continue oxygen until able to taper -on 15 liters oxygen, will continue taper 2. Fever -blood cultures ordered -chest xray showed worsening infiltrates -sputum ordered, but currently has no productive cough -urinalysis ordered with reflex culture ordered -vanco/zosyn started -PICC ordered -procalcitonin, d-dimer ordered -will obtain CT angio of the chest to rule out PE, discontinue vanco given the negative MRSA screen -procalcitonin normal -will discontinue Zosyn, vanco 2. Hyponatremia, acute, resolved -initial sodium 129 -now improved with fluids -serum sodium 136 today 3. Diabetes with A1c of 11.8, new diagnosis -started on lantus, and insulin sliding scale -insulin, c-peptide, anti-morelia ab ordered -blood sugars still elevated continue Lantus and sliding scale Time Spent With Patient Critical Care time: I spent a total of [] minutes of critical care time on this patient's care today; this time is exclusive of procedural time. Quality VTE Deep Vein Thrombosis/Pulmonary Embolism Present on Admission: No
--- NOTE | 2021-07-26 15:31 | CM.DPC ---
DCP Cont: Per MD, pt continues with need for increased oxygen today of 15LO2 and per RT still desatting easily. Pt not medically stable to d/c at this time. Plan: SW to follow closely for pt progress with hopeful weaning of his oxygen needs towards plan of d/c home with spouse and packet of healthcare resources to be provided to pt at d/c as he currently has no health insurance. YASMIN Patricia
[2021-07-26] MEDS: HYDROCODONE/ACET 5/325 TABLET 2 TAB PO ×2 (16:14→20:07)
[2021-07-26] MEDS: MELATONIN 3 MG TABLET 6 MG PO (20:08)
[2021-07-26] MEDS: SENNOSIDES 8.6 MG TABLET 17.2 MG PO (20:08)
[2021-07-27] VITALS (9 sets, daily range): BP systolic 131–142; BP diastolic 67–83; PULSE 51–86; RESP 17–30; TEMP 36.3–37; O2SAT 90–94
--- NOTE | 2021-07-27 02:56 | PC.NURSE ---
Addendum entered by Nivia Cameron R.N. 07/27/21 04:59: Patient woke at 0400 to use urinal, on 15L HFNC, desats to 80% during activity while in the bed, respiratory labored, self-proning, took ~ 15min to recover for SpO2 to be >90%, VSS, denied pain, was little nervous but remained calm. Original Note: Shift Note-Patient has been sleeping since start of shift 0, lying on Lt side, SpO2 >92%, HR 40s-50s, allowing patient to rest undisturbed, he received [place], Ativan, and melatonin at HS, will continue to monitor in oximetry.
[2021-07-27] MEDS: PANTOPRAZOLE DR 40 MG TABLET PO (06:41)
[2021-07-27] MEDS: DEXAMETHASONE 10 MG/ML VIAL 6 MG IV (08:18)
[2021-07-27] MEDS: INSULIN GLARGINE 100 UNIT/ML 3ML PEN 25 UNIT SUBCUT ×2 (08:18→20:57)
[2021-07-27] MEDS: INSULIN LISPRO 100 UNIT/ML 3ML VIAL SUBCUT ×6 (08:19→21:02)
[2021-07-27] MEDS: HYDROCODONE/ACET 5/325 TABLET 2 TAB PO ×3 (08:20→20:54)
[2021-07-27] MEDS: DOCUSATE 100 MG CAPSULE PO ×2 (08:20→20:55)
[2021-07-27] MEDS: LORazepam 0.5 MG TABLET PO ×3 (08:20→20:54)
[2021-07-27] MEDS: ENOXAPARIN 40 MG/0.4 ML SYRINGE SUBCUT ×2 (08:21→20:54)
[2021-07-27] MEDS: SODIUM CHLORIDE 0.9% FLUSH 10 ML IV ×2 (08:23→20:54)
--- NOTE | 2021-07-27 08:38 | PC.NURSE ---
Addendum entered by Tanya Griggs R.N. 07/27/21 14:16: pt started on po mucinex to assist with sputum production- proning again at 1410- again medicated with po norco for generalized pain and lorazepam for anxiety spo2 on 10 L HFNC = 90% Addendum entered by Tanya Griggs R.N. 07/27/21 11:46: proned from [id number] now side lying on Left o2 turned down to 10L HFNC with prn back up of nrb 100% for intermittent dyspnea Addendum entered by Tanya Griggs R.N. 07/27/21 09:43: pt took 100% of am meal and at 0912-assisted pt to prone position- pain rx and po lorazepam very helpful with this currently 94-96% on 15L hfnc Original Note: PT REMAINS ANXIOUS- HE REPORTS THAT HE PRONED X SEVERAL HOURS DURING NOC SHIFT- INITIAL ASSESSMENT FINDS HIM SUPINE WITH HOB AT 36%-HIS LUNGS SOUND COARSE AND DIMINISHED- HE IS HOWEVER COUGHING MORE AND BEGINNING TO PRODUCE SPUTUM- NONE COLLECTED FOR SPECIMEN TO LAB OF YET. 15 LITER/MIN ON HIGH FLOW NASAL CANNULA WITH SPO2 88-94% AT THIS TIME- WILL ATTEMPT TO DECREASE O2 DAY PROGRESSES- USING URINAL NEEDED AND SCD'S IN PLACE
[2021-07-27] MEDS: REMDESIVIR 100 MG in SODIUM CHLORIDE 0.9% 230 ML 250 ML IV (09:12)
--- NOTE | 2021-07-27 09:44 | DIET.PN1 ---
Dietary Progress Note RD Note: Covid+ patient with new dx DM2 (A1c>10) on LOS day 8. Despite desaturating c movement, pt consuming 100% meals including ONS Ensure Max (low carb, high PRO formulation). Pt BG much better controlled with most readings <200. Ht: 177.8 cm Wt: 85.2 kg BMI: 26.9 Last BM: 07/26/21 (07/26/21 06:40) MNA: 8 Mikael Score: 22 Diet: 07/19/21 Breakfast Carbohydrate Consistent Diet Diet Modifications: ONS Ensure Max c lunch Carbohydrate level: Medium (3 CHO) Bedtime snack: Yes Nutrition Percent Meal Consumed 100% 07/26/21 19:43 Percent Meal Consumed 100% 07/26/21 13:00 Percent Meal Consumed 100% 07/26/21 09:15 Percent Meal Consumed 100% 07/25/21 14:00 Labs: RBC 5.00 X10^6/uL (4.5-5.9) 07/26/21 05:30 Hgb 15.8 g/dL (13.5-17.5) 07/26/21 05:30 Hct 47.1 % (41-53) 07/26/21 05:30 Creatinine 0.65 mg/dL (0.66-1.25) L 07/26/21 05:30 Hemoglobin A1c 11.8 % (4.0-6.0) H 07/18/21 22:04 Lactate 1.3 mmol/L (0.7-2.1) 07/18/21 22:04 Ferritin 1220 ng/mL (18-464) H 07/21/21 04:43 NT-Pro-B Natriuret Pep 54 pg/mL (<125) 07/19/21 02:51 Monitoring/Evaluations: continue to monitor POs, begin DM education once pt able to breathe well enough to hold conversation and emotionally feels like he can focus on the material. [facility] referral to DSME program upon d/c for further outpatient support of new DM2 dx. Electronically Signed by: Ariane Glover 07/27/21 09:44 Clinical Dietitian [address] [address]
--- NOTE | 2021-07-27 13:05 | PM.PN.1 ---
Subjective Subjective Interval history: Patient is 55-year-old male who is here on date 8 of his hospitalization for acute respiratory failure secondary to COVID pneumonia. Patient continues to require high amounts of oxygen for oxygenation. He is currently on 10 L of oxygen down from 15 L. He has been pronating as best he can. From time to time the patient is somewhat anxious. Ativan seems to control his anxiety and improves his oxygenation. He has minimal cough. Otherwise he is making slow but steady progress. Exam Vital Signs (past 8 hours): - 07/27/21 07:24 07/27/21 07:45 07/27/21 08:20 Temperature 98.6 F 98.6 F Pulse Rate 63 Respiratory Rate 22 Blood Pressure 142/80 H Pulse Oximetry 90 L 93 07/27/21 11:29 07/27/21 12:10 Temperature Pulse Rate 51 L 54 L Respiratory Rate 22 25 H Blood Pressure Pulse Oximetry 94 91 Fraction of Inspired Oxygen 65 Oxygen Delivery Method High Flow Nasal Cannula Oxygen Flow Rate 10 Narrative Exam Narrative: Anxious male in no obvious distress Resp Other: Lungs: Decreased breath sounds but clear to auscultation Cardio Other: Cardiac exam: Regular rate and rhythm normal S1-S2 GI Other: Abdomen: Soft and nontender Extrem Other: Extremities: No edema Objective Labs Result Diagrams: 07/26/21 05:30 07/26/21 05:30 [facility] Medical History (Updated 07/20/21 @ 07:04 by SUE Locke-LAKESHIA) No significant past medical history Surgical History (Updated 07/19/21 @ 03:30 by CESAR Locke) History of appendectomy Family History Mother Cancer Father Heart attack Social History household members: spouse Smoking Status: Never smoker alcohol intake: current Assessment & Plan Assessment & Plan narrative: Acute respiratory failure with hypoxia and tachypnea, secondary to COVID pneumonia, acute, present on admission -unfortunately patient is unvaccinated -started on remdesivir and dexamethasone, day #9, will continue for one more day -initially on 3L nasal canula and has been continued to increase to 60L with 100% FiO2 -lovenox 40mg BID ordered -maintain O2 sat >90% -continue albuterol PRN -discussed baracitinib which patient declined- continues to decline -have encouraged proning which has helped slightly with saturations -patient has been able to taper off high-flow oxygen, now on 10 L of oxygen which she has talked -D-dimer elevated at greater than 5000, will obtain CT angio to rule out pulmonary embolus -will continue b.i.d. dosing of Lovenox -procalcitonin negative, MRSA PCR negative, will discontinue vancomycin -CTA negative for PE -Patient has completed 10 days of remdesivir, tomorrow is day 10 of Decadron -will continue to taper oxygen as tolerated -currently on 10 liters of oxygen 2. Fever -blood cultures ordered -chest xray showed worsening infiltrates -sputum ordered, but currently has no productive cough -urinalysis ordered with reflex culture ordered -vanco/zosyn started -PICC ordered -procalcitonin, d-dimer ordered -will obtain CT angio of the chest to rule out PE, discontinue vanco given the negative MRSA screen -procalcitonin normal -will discontinue Zosyn, vanco -afebrile for 24 hours 2. Hyponatremia, acute, resolved -initial sodium 129 -now improved with fluids -serum sodium 137 today 3. Diabetes with A1c of 11.8, new diagnosis -started on lantus, and insulin sliding scale -insulin, c-peptide, anti-dashawn ab ordered -blood sugars still elevated continue Lantus and sliding scale -blood sugars controlled on current regimen Time Spent With Patient Critical Care time: I spent a total of [] minutes of critical care time on this patient's care today; this time is exclusive of procedural time. Quality VTE Deep Vein Thrombosis/Pulmonary Embolism Present on Admission: No
[2021-07-27] MEDS: guaiFENesin ER 600 MG TAB PO (13:43)
[2021-07-27] MEDS: MELATONIN 3 MG TABLET 6 MG PO (20:54)
[2021-07-27] MEDS: SENNOSIDES 8.6 MG TABLET 17.2 MG PO (20:55)
[2021-07-28] VITALS (8 sets, daily range): BP systolic 129–152; BP diastolic 68–88; PULSE 55–75; RESP 17–26; TEMP 36–36.6; O2SAT 90–95
[2021-07-28] MEDS: PANTOPRAZOLE DR 40 MG TABLET PO (05:00)
[2021-07-28] MEDS: guaiFENesin ER 600 MG TAB PO ×2 (07:59→19:24)
[2021-07-28] MEDS: DOCUSATE 100 MG CAPSULE PO ×2 (07:59→21:51)
[2021-07-28] MEDS: LORazepam 0.5 MG TABLET PO ×3 (07:59→19:24)
[2021-07-28] MEDS: ENOXAPARIN 40 MG/0.4 ML SYRINGE SUBCUT ×2 (08:00→21:50)
[2021-07-28] MEDS: DEXAMETHASONE 10 MG/ML VIAL 6 MG IV (08:00)
--- NOTE | 2021-07-28 09:38 | PC.NURSE ---
Addendum entered by Eloise Bennett R.N. 07/28/21 15:15: Ativan given to tolerate proning. About 1 hour this shift. Frequent complaints about frustration with not getting better faster, will now accept Lianaub per Dr Franco. Original Note: AM shift Pt remains with HFNC @ 10-12L and PRN NRB with SOB, unable to do more than brief bed mobility, working to group care and activities. Nasal congestion and bloody nares with c/o pressure. Nasal spray obtained. Ativan given for increased anxiety. Pt side laying and able to rest after meal. Update to . Call light in reach.
[2021-07-28] MEDS: INSULIN GLARGINE 100 UNIT/ML 3ML PEN 25 UNIT SUBCUT (11:07)
[2021-07-28] MEDS: SODIUM CHLORIDE 0.9% FLUSH 10 ML IV ×2 (11:08→21:55)
[2021-07-28] MEDS: INSULIN LISPRO 100 UNIT/ML 3ML VIAL SUBCUT ×5 (13:00→21:52)
[2021-07-28] MEDS: BARICITINIB 2 MG TABLET 4 MG PO (13:41)
--- NOTE | 2021-07-28 17:36 | PM.PN.1 ---
Subjective Subjective Date Patient Seen: 07/28/21 Interval history: The patient is a 55-year-old male with a history of respiratory failure due to COVID pneumonia. He continues on remdesivir and Decadron. Despite that he continues to require high-flow oxygen and requires 10-12 L to maintain his oxygen saturation. Patient is quite anxious today. He is concerned about his slow progress. Patient states he would like to try the new anti-retroviral that we discussed previously Patient started the baracitinib. he developed hemoptysis Exam Vital Signs (past 8 hours): - 07/28/21 10:20 07/28/21 12:00 07/28/21 16:24 Temperature 96.8 F L 97.5 F L Pulse Rate 67 72 Respiratory Rate 26 H 21 Blood Pressure 137/68 133/79 Pulse Oximetry 93 94 91 Fraction of Inspired Oxygen 65 Oxygen Delivery Method High Flow Nasal Cannula Oxygen Flow Rate 12 Narrative Exam Narrative: Anxious male lying in bed tearful Resp Other: Lungs decreased breath sounds Cardio Other: Cardiac exam: Regular rate and rhythm normal S1-S2 GI Other: Soft nontender nondistended Extrem Other: No edema Objective Labs Result Diagrams: 07/26/21 05:30 07/26/21 05:30 [facility] Medical History (Updated 07/20/21 @ 07:04 by CESAR Locke) No significant past medical history Surgical History (Updated 07/19/21 @ 03:30 by CESAR Locke) History of appendectomy Family History Mother Cancer Father Heart attack Social History household members: spouse Smoking Status: Never smoker alcohol intake: current Assessment & Plan Assessment & Plan narrative: Acute respiratory failure with hypoxia and tachypnea, secondary to COVID pneumonia, acute, present on admission -unfortunately patient is unvaccinated -started on remdesivir and dexamethasone, day #9, will continue for one more day -maintain O2 sat >90% -continue albuterol PRN -discussed baracitinib which patient initially declined, patient now consents to start treatment -have encouraged proning which has helped slightly with saturations -patient has been able to taper off high-flow oxygen, now on 10 L of oxygen which she has talked -D-dimer elevated at greater than 5000, will obtain CT angio to rule out pulmonary embolus -will continue b.i.d. dosing of Lovenox -procalcitonin negative, MRSA PCR negative, will discontinue vancomycin -CTA negative for PE -Patient has completed 10 days of remdesivir, tomorrow is day 10 of Decadron -will continue to taper oxygen as tolerated -currently on 10 liters of oxygen -started baracitinib today -developed hemoptysis -will obtain sputum culture, chest x-ray, respiratory panel 2. Fever -blood cultures ordered -chest xray showed worsening infiltrates -sputum ordered, but currently has no productive cough -urinalysis ordered with reflex culture ordered -vanco/zosyn started -PICC ordered -procalcitonin, d-dimer ordered -will obtain CT angio of the chest to rule out PE, discontinue vanco given the negative MRSA screen -procalcitonin normal -will discontinue Zosyn, vanco -afebrile for 24 hours -repeat chest x-ray today 2. Hyponatremia, acute, resolved -initial sodium 129 -now improved with fluids -serum sodium 137 today 3. Diabetes with A1c of 11.8, new diagnosis -started on lantus, and insulin sliding scale -insulin, c-peptide, anti-dashawn ab ordered -blood sugars still elevated continue Lantus and sliding scale -blood sugars remain erratic -will continue to titrate insulin accordingly Time Spent With Patient Critical Care time: I spent a total of [] minutes of critical care time on this patient's care today; this time is exclusive of procedural time. Quality VTE Deep Vein Thrombosis/Pulmonary Embolism Present on Admission: No
--- NOTE | 2021-07-28 17:47 | DI.RAD.S_ITS ---
PROCEDURE: XR CHEST 1V INDICATIONS: hemoptysis TECHNIQUE: One view of the chest was acquired. COMPARISON: [facility], CR, XR CHEST 1V, 07/23/2021, 6:35. FINDINGS: Surgical changes and devices: None. Lungs and pleura: Patchy consolidation noted the diffusely throughout the lungs bilaterally which has progressed in the interval since prior exam obtained July 23, 2021. No pleural effusions or pneumothorax. Mediastinum: Mediastinal contours appear normal. Heart size is normal. Bones and chest wall: No suspicious bony lesions. Overlying soft tissues appear unremarkable. IMPRESSION: Bilateral lung multilobar pneumonia which has progressed in the interval since prior exam obtained July 23, 2021. Dictated by: Emily Rosas MD, PhD on 07/28/2021 at 18:11 Approved by: Emily Rosas MD, PhD on 07/28/2021 at 18:12
[2021-07-28 18:36] LABS: Add Manual Diff / Slide Review NO; Basophils Absolute Auto 100 /uL (0-100); Basophils Percent Auto 0.6 % (0-2); Eosinophils Absolute Auto 0 /uL (0-450); Eosinophils Percent Auto 0.2 % (2-4); Hematocrit 45.9 % (41-53); Lymphocytes Absolute Auto 1000 /uL (1100-4500); Lymphocytes Percent Auto 10.9 % (25-40); Mean Corpuscular HGB Conc 34.8 % (30-36); Mean Corpuscular Hemoglobin 32.6 PG (26-34); Mean Corpuscular Volume 93.5 fL (80-100); Monocytes Absolute Auto 600 /uL (0-900); Monocytes Percent Auto 5.8 % (3-14); Neutrophils Absolute Auto 8000 /uL (1500-7000); Neutrophils Percent Auto 82.5 % (50-75); Platelet Count 204 X10^3/uL (150-400); Red Cell Distribution Width 12.6 % (11.6-14.8); White Blood Cell Count 9.6 X10^3/uL (4.5-11.0)
[2021-07-28 18:56] LABS: BUN Creatinine Ratio 34.8 (6-22); Blood Urea Nitrogen 23 mg/dL (9-20); Calcium 8.8 mg/dL (8.4-10.2); Carbon Dioxide 36 mmol/L (22-32); Chloride 94 mmol/L (98-107); Estimated Glomerular Filt Rate > 60.0 mL/min (>60); Glucose 245 mg/dL (70-100); HEMOLYSIS < 15 (0-50); Potassium 4.3 mmol/L (3.4-5.1); Sodium 134 mmol/L (137-145)
[2021-07-28] MEDS: SENNOSIDES 8.6 MG TABLET 17.2 MG PO (21:50)
[2021-07-28] MEDS: HYDROCODONE/ACET 5/325 TABLET 2 TAB PO (21:50)
[2021-07-28] MEDS: MELATONIN 3 MG TABLET 6 MG PO (21:50)
[2021-07-28] MEDS: INSULIN GLARGINE 100 UNIT/ML 3ML PEN 30 UNIT SUBCUT (21:52)
[2021-07-28 23:21] LABS: Adenovirus Not Detected (Not Detect); Coronavirus 229E Not Detected (Not Detect)
[2021-07-28 23:23] LABS: B. parapertussis Not Detected (Not Detecte); Coronavirus HKU1 Not Detected (Not Detect); Coronavirus NL 63 Not Detected (Not Detect); Coronavirus OC43 Not Detected (Not Detect); Human Metapneumovirus Not Detected (Not Detect); Human Rhinovirus/Enterovirus Not Detected (Not Detect); Influenza A Not Detected (Not Detect); Influenza B Not Detected (Not Detect); Parainfluenza Virus 1 Not Detected (Not Detect); Parainfluenza Virus 2 Not Detected (Not Detect); Parainfluenza Virus 3 Not Detected (Not Detect); Parainfluenza Virus 4 Not Detected (Not Detect); Respiratory Syncytial Virus Not Detected (Not Detect)
[2021-07-28 23:24] LABS: Bordetella pertussis Not Detected (Not Detecte); Chlamydophila pneumoniae Not Detected (Not Detect); Mycoplasma pneumoniae Not Detected (Not Detect)
[2021-07-28 23:25] LABS: SARS- CoV-2 Detected (Not Detecte)
[2021-07-29] VITALS (10 sets, daily range): BP systolic 113–159; BP diastolic 66–83; PULSE 56–73; RESP 18–24; TEMP 36.2–36.8; O2SAT 89–95
[2021-07-29] MEDS: IBUPROFEN 600 MG TABLET PO (04:07)
[2021-07-29] MEDS: LORazepam 0.5 MG TABLET PO ×3 (04:07→21:02)
[2021-07-29] MEDS: PANTOPRAZOLE DR 40 MG TABLET PO (05:36)
[2021-07-29 06:47] LABS: Add Manual Diff / Slide Review NO; Basophils Absolute Auto 0 /uL (0-100); Basophils Percent Auto 0.4 % (0-2); Eosinophils Absolute Auto 100 /uL (0-450); Eosinophils Percent Auto 0.8 % (2-4); Hematocrit 44.4 % (41-53); Hemoglobin 15.2 g/dL (13.5-17.5); Lymphocytes Absolute Auto 1600 /uL (1100-4500); Lymphocytes Percent Auto 15.8 % (25-40); Mean Corpuscular HGB Conc 34.1 % (30-36); Mean Corpuscular Hemoglobin 32.1 PG (26-34); Mean Corpuscular Volume 93.9 fL (80-100); Monocytes Absolute Auto 1100 /uL (0-900); Monocytes Percent Auto 10.4 % (3-14); Neutrophils Absolute Auto 7500 /uL (1500-7000); Neutrophils Percent Auto 72.6 % (50-75); Platelet Count 199 X10^3/uL (150-400); Red Blood Cell Count 4.73 X10^6/uL (4.5-5.9); Red Cell Distribution Width 12.7 % (11.6-14.8); White Blood Cell Count 10.3 X10^3/uL (4.5-11.0)
[2021-07-29 07:09] LABS: Alanine Aminotransferase 48 IU/L (<50); Alkaline Phosphatase 54 U/L (38-126); Aspartate Aminotransferase 29 IU/L (17-59); BUN Creatinine Ratio 32.3 (6-22); Bilirubin Total 0.8 mg/dL (0.2-1.3); Blood Urea Nitrogen 20 mg/dL (9-20); Calcium 8.3 mg/dL (8.4-10.2); Carbon Dioxide 37 mmol/L (22-32); Chloride 95 mmol/L (98-107); Estimated Glomerular Filt Rate > 60.0 mL/min (>60); Glucose 198 mg/dL (70-100); HEMOLYSIS < 15 (0-50); Potassium 4.4 mmol/L (3.4-5.1); Sodium 133 mmol/L (137-145)
[2021-07-29 07:16] LABS: NT-proBNP (BNP-Adult 18+) 198 pg/mL (<125)
[2021-07-29] MEDS: DOCUSATE 100 MG CAPSULE PO ×2 (09:16→20:49)
[2021-07-29] MEDS: BARICITINIB 2 MG TABLET 4 MG PO (09:16)
[2021-07-29] MEDS: ENOXAPARIN 40 MG/0.4 ML SYRINGE SUBCUT ×2 (09:16→20:48)
[2021-07-29] MEDS: DEXAMETHASONE 10 MG/ML VIAL 6 MG IV (09:17)
[2021-07-29] MEDS: INSULIN GLARGINE 100 UNIT/ML 3ML PEN 30 UNIT SUBCUT (09:22)
[2021-07-29] MEDS: SODIUM CHLORIDE 0.9% FLUSH 10 ML IV ×2 (09:22→20:50)
[2021-07-29] MEDS: INSULIN LISPRO 100 UNIT/ML 3ML VIAL SUBCUT ×7 (09:23→20:45)
--- NOTE | 2021-07-29 17:20 | P.PN_ITS ---
Subjective Subjective Date Patient Seen: 07/29/21 Interval history: The patient is a 55-year-old male who is unvaccinated admitted to the hospital for respiratory failure due to COVID pneumonia. Patient continues to require 12 L of oxygen. He attempts to prone at night. He is quite tearful regarding his prognosis. The oxygen has been very drying to his nose. As such he has had nasal bleeding, and concomitant hemoptysis. He has had very little blood except associated with nose bleeds. I examined the patient with his present via face time. Questions were answered regarding his treatment and prognosis Exam Vital Signs (past 8 hours): - 07/29/21 09:30 07/29/21 11:35 Temperature 98.0 F Pulse Rate 62 Respiratory Rate 20 20 Blood Pressure 128/77 Pulse Oximetry 92 94 Fraction of Inspired Oxygen 65 Oxygen Delivery Method Nasal Cannula Oxygen Flow Rate 12 Narrative Exam Narrative: Anxious male who is tearful HENMT Other: Normocephalic atraumatic Resp Other: Lungs decreased breath sounds with scattered crackles occasionally Cardio Other: Cardiac exam: Regular rate and rhythm normal S1-S2 GI Other: Abdomen: Soft and nontender Extrem Other: Extremity no edema Objective Labs Result Diagrams: 07/29/21 06:30 07/29/21 06:30 Labs: Laboratory Results - last 24 hr 07/28/21 07/28/21 07/28/21 18:25 18:25 22:21 WBC 9.6 RBC 4.90 Hgb 16.0 Hct 45.9 MCV 93.5 MCH 32.6 MCHC 34.8 RDW 12.6 Plt Count 204 Neut % (Auto) 82.5 H Lymph % (Auto) 10.9 L Ballard % (Auto) 5.8 Eos % (Auto) 0.2 L Baso % (Auto) 0.6 Neut # (Auto) 8000 H Lymph # (Auto) 1000 L Ballard # (Auto) 600 Eos # (Auto) 0 Baso # (Auto) 100 Sodium 134 L Potassium 4.3 Chloride 94 L Carbon Dioxide 36 H BUN 23 H Creatinine 0.66 Estimated GFR > 60.0 BUN/Creatinine Ratio 34.8 H Glucose 245 H D Calcium 8.8 Total Bilirubin AST ALT Alkaline Phosphatase NT-Pro-B Natriuret Pep Total Protein Albumin Globulin Albumin/Globulin Ratio Chlamy pneumoniae PCR Not detected Adenovirus (PCR) Not detected B. pertussis DNA (PCR) Not detected B.parapertussis DNA PCR Not detected Coronavirus OC43 (PCR) Not detected Coronavirus HKU1 (PCR) Not detected Coronavirus 229E (PCR) Not detected SARS-CoV-2 (PCR) Detected H Coronavirus NL63 (PCR) Not detected Human Metapneumovir PCR Not detected Influenza Type A (PCR) Not detected Influenza Type B (PCR) Not detected M. pneumoniae (PCR) Not detected Parainfluenza 1 (PCR) Not detected Parainfluenza 2 (PCR) Not detected Parainfluenza 3 (PCR) Not detected Parainfluenza 4 (PCR) Not detected RSV (PCR) Not detected Entero/Rhino (PCR) Not detected 07/29/21 07/29/21 06:30 06:30 WBC 10.3 RBC 4.73 Hgb 15.2 Hct 44.4 MCV 93.9 MCH 32.1 MCHC 34.1 RDW 12.7 Plt Count 199 Neut % (Auto) 72.6 Lymph % (Auto) 15.8 L Ballard % (Auto) 10.4 Eos % (Auto) 0.8 L Baso % (Auto) 0.4 Neut # (Auto) 7500 H Lymph # (Auto) 1600 Ballard # (Auto) 1100 H Eos # (Auto) 100 Baso # (Auto) 0 Sodium 133 L Potassium 4.4 Chloride 95 L Carbon Dioxide 37 H BUN 20 Creatinine 0.62 L Estimated GFR > 60.0 BUN/Creatinine Ratio 32.3 H Glucose 198 H Calcium 8.3 L Total Bilirubin 0.8 AST 29 ALT 48 Alkaline Phosphatase 54 NT-Pro-B Natriuret Pep 198 H Total Protein 6.0 L Albumin 3.0 L Globulin 3.0 Albumin/Globulin Ratio 1.0 Chlamy pneumoniae PCR Adenovirus (PCR) B. pertussis DNA (PCR) B.parapertussis DNA PCR Coronavirus OC43 (PCR) Coronavirus HKU1 (PCR) Coronavirus 229E (PCR) SARS-CoV-2 (PCR) Coronavirus NL63 (PCR) Human Metapneumovir PCR Influenza Type A (PCR) Influenza Type B (PCR) M. pneumoniae (PCR) Parainfluenza 1 (PCR) Parainfluenza 2 (PCR) Parainfluenza 3 (PCR) Parainfluenza 4 (PCR) RSV (PCR) Entero/Rhino (PCR) [facility] Medical History (Updated 07/20/21 @ 07:04 by CESAR Locke) No significant past medical history Surgical History (Updated 07/19/21 @ 03:30 by CESAR Locke) History of appendectomy Family History Mother Cancer Father Heart attack Social History household members: spouse Smoking Status: Never smoker alcohol intake: current Assessment & Plan Assessment & Plan narrative: Acute respiratory failure with hypoxia and tachypn ea, secondary to COVID pneumonia, acute, present on admission -unfortunately patient is unvaccinated -started on remdesivir and dexamethasone, day #9, will continue for one more day -maintain O2 sat >90% -continue albuterol PRN -discussed baracitinib which patient initially declined, patient now consents to start treatment -have encouraged proning which has helped slightly with saturations -patient has been able to taper off high-flow oxygen, now on 10 L of oxygen which she has talked -D-dimer elevated at greater than 5000, will obtain CT angio to rule out pulmonary embolus -will continue b.i.d. dosing of Lovenox -procalcitonin negative, MRSA PCR negative, will discontinue vancomycin -CTA negative for PE -Patient has completed 10 days of remdesivir, tomorrow is day 10 of Decadron -will continue to taper oxygen as tolerated -currently on 10 liters of oxygen -started baracitinib today -developed hemoptysis -will obtain sputum culture, chest x-ray, respiratory panel -chest xray unchanged, suspect hemoptysis is from nasal bleeding from oxygen, tolerating treatment except for anxiety 2. Fever -blood cultures ordered -chest xray showed worsening infiltrates -sputum ordered, but currently has no productive cough -urinalysis ordered with reflex culture ordered -vanco/zosyn started -PICC ordered -procalcitonin, d-dimer ordered -will obtain CT angio of the chest to rule out PE, discontinue vanco given the negative MRSA screen -procalcitonin normal -will discontinue Zosyn, vanco -afebrile for 24 hours -repeat chest x-ray today, unchanged - 2. Hyponatremia, acute, resolved -initial sodium 129 -now improved with fluids -serum sodium 133 today 3. Diabetes with A1c of 11.8, new diagnosis -started on lantus, and insulin sliding scale -insulin, c-peptide, anti-dashawn ab ordered -blood sugars still elevated continue Lantus and sliding scale -blood sugars remain erratic -will continue to titrate insulin accordingly Time Spent With Patient Critical Care time: I spent a total of [] minutes of critical care time on this patient's care today; this time is exclusive of procedural time. Quality VTE Deep Vein Thrombosis/Pulmonary Embolism Present on Admission: No
[2021-07-29] MEDS: INSULIN GLARGINE 100 UNIT/ML 3ML PEN 35 UNIT SUBCUT (20:47)
[2021-07-29] MEDS: MELATONIN 3 MG TABLET 6 MG PO (20:49)
[2021-07-29] MEDS: SENNOSIDES 8.6 MG TABLET 17.2 MG PO (20:49)
[2021-07-30] VITALS (9 sets, daily range): BP systolic 113–142; BP diastolic 74–88; PULSE 51–68; RESP 17–29; TEMP 36.6–36.7; O2SAT 90–97
[2021-07-30] MEDS: LORazepam 0.5 MG TABLET PO ×4 (03:14→21:12)
[2021-07-30] MEDS: ENOXAPARIN 40 MG/0.4 ML SYRINGE SUBCUT (09:00)
[2021-07-30] MEDS: BARICITINIB 2 MG TABLET 4 MG PO (09:00)
[2021-07-30] MEDS: SODIUM CHLORIDE 0.9% FLUSH 10 ML IV ×2 (09:01→21:20)
[2021-07-30] MEDS: DOCUSATE 100 MG CAPSULE PO ×2 (09:01→21:12)
[2021-07-30] MEDS: INSULIN GLARGINE 100 UNIT/ML 3ML PEN 15 UNIT SUBCUT ×2 (09:03→21:14)
[2021-07-30] MEDS: INSULIN LISPRO 100 UNIT/ML 3ML VIAL SUBCUT ×7 (09:05→21:13)
[2021-07-30] MEDS: polyethylene glycoL 3350 17 GM POWD.PACK PO (12:22)
--- NOTE | 2021-07-30 13:15 | P.PN_ITS ---
Subjective Subjective Date Patient Seen: 07/30/21 Interval history: 55-year-old male who is unvaccinated admitted to the hospital for respiratory failure due to COVID pneumonia. Patient states he was restless last night and unable to sleep. He has been on 12 L nasal cannula but desaturat es with getting up to a commode. He had difficulty staying in prone position last night. He states his breathing overall is substantially better from a week ago. He does report copious nose bleed overnight. He has not coughed up blood. Exam Vital Signs (past 8 hours): - 07/30/21 08:00 Temperature 98.0 F Pulse Rate 61 Respiratory Rate 19 Blood Pressure 141/88 H Pulse Oximetry 96 Fraction of Inspired Oxygen 65 Oxygen Delivery Method High Flow Nasal Cannula Oxygen Flow Rate 12 Narrative Exam Narrative: General: Alert and cooperative, breathing not labored at rest and able to speak in full sentences Extremities: No edema Objective Labs Result Diagrams: 07/29/21 06:30 07/29/21 06:30 [facility] Medical History (Updated 07/20/21 @ 07:04 by CESAR Locke) No significant past medical history Surgical History (Updated 07/19/21 @ 03:30 by CESAR Locke) History of appendectomy Family History Mother Cancer Father Heart attack Social History household members: spouse Smoking Status: Never smoker alcohol intake: current Assessment & Plan Assessment & Plan narrative: 1. Acute respiratory failure with hypoxia and tachypnea, secondary to COVID pneumonia, acute, present on admission -completed remdesivir x 10 days, dexamethasone x 11 days and discontinued 07/30 -baracitinib started 07/28 for up to 2 week course -maintain O2 sat >90% -continue albuterol PRN -have encouraged proning which has helped slightly with saturations -D-dimer elevated at greater than 5000, CTA ruled out pulmonary embolism -decreased Lovenox to 40 mg subQ daily in light of persistent nose bleeds 2. Hyponatremia, acute, resolved 3. Diabetes with A1c of 11.8, new diagnosis -persistent elevated sugars -continue Lantus, dose decreased to 15 units b.i.d. with stopping dexamethasone -continue mealtime lispro 5 units t.i.d. and sliding scale a.c. HS Time Spent With Patient Critical Care time: I spent a total of [] minutes of critical care time on this patient's care today; this time is exclusive of procedural time. Quality VTE Deep Vein Thrombosis/Pulmonary Embolism Present on Admission: No
[2021-07-30] MEDS: MELATONIN 3 MG TABLET 6 MG PO (21:12)
[2021-07-30] MEDS: HYDROCODONE/ACET 5/325 TABLET 2 TAB PO (21:12)
[2021-07-30] MEDS: SENNOSIDES 8.6 MG TABLET 17.2 MG PO (21:13)
[2021-07-31] VITALS (8 sets, daily range): BP systolic 99–146; BP diastolic 60–82; PULSE 61–73; RESP 17–22; TEMP 36.6–37.2; O2SAT 93–96
--- NOTE | 2021-07-31 02:39 | PC.NURSE ---
07/30/[id number] This nurse sustained a needle stick post Lispro administration.
--- NOTE | 2021-07-31 02:40 | PC.NURSE ---
07/30/[id number] Christianne updated as to condition and plan of care.
[2021-07-31 05:13] LABS: Alanine Aminotransferase 62 IU/L (<50)
[2021-07-31 05:50] LABS: Hepatitis B Surface Antigen NEGATIVE s/c (NEGATIVE)
[2021-07-31 06:26] LABS: HIV 1 & 2 Ab/Ag 4th Gen Combo NEGATIVE (NEGATIVE); Hep C Virus Ab w/Reflex Quant NEGATIVE s/c (NEGATIVE)
[2021-07-31] MEDS: LORazepam 0.5 MG TABLET PO ×2 (08:11→18:08)
[2021-07-31] MEDS: guaiFENesin ER 600 MG TAB PO (08:11)
[2021-07-31] MEDS: ENOXAPARIN 40 MG/0.4 ML SYRINGE SUBCUT (08:11)
[2021-07-31] MEDS: HYDROCODONE/ACET 5/325 TABLET 2 TAB PO ×2 (08:12→18:08)
[2021-07-31] MEDS: DOCUSATE 100 MG CAPSULE PO ×2 (08:12→21:35)
[2021-07-31] MEDS: polyethylene glycoL 3350 17 GM POWD.PACK PO (08:12)
[2021-07-31] MEDS: BARICITINIB 2 MG TABLET 4 MG PO (08:12)
[2021-07-31] MEDS: INSULIN GLARGINE 100 UNIT/ML 3ML PEN 15 UNIT SUBCUT ×2 (08:14→21:35)
--- NOTE | 2021-07-31 09:59 | DIET.PN1 ---
Dietary Progress Note RD Note: 55y M covid+ c new Dx DM2 this hospitalization on LOS day [address] in ICU[address] Pt called RD to initiate his inpatient DM education. Pt ordering meals daily and consuming 100%, however, often ordering over his 45g allotment per meal. Usual breakfast in hospital- classic breakfast, oatmeal, and orders OJ (however kitchen sends low carb watermelon water as alternate option). Pt unsure where menu in room is and misplaced DM eating packet sent up last week. Ht: 177.8 cm Wt: 85 kg BMI: 26.9 Last BM: 07/28/21 (07/28/21 14:00) MNA: 8 Mikael Score: 23 Diet: 07/19/21 Breakfast Carbohydrate Consistent Diet Diet Modifications: ONS Ensure Max c lunch Carbohydrate level: Medium (3 CHO) Bedtime snack: Yes Nutrition Percent Meal Consumed 100% 07/30/21 18:20 Percent Meal Consumed 100% 07/30/21 13:18 Percent Meal Consumed 100% 07/30/21 08:56 Percent Meal Consumed 100% 07/29/21 18:00 Labs: RBC 4.73 X10^6/uL (4.5-5.9) 07/29/21 06:30 Hgb 15.2 g/dL (13.5-17.5) 07/29/21 06:30 Hct 44.4 % (41-53) 07/29/21 06:30 Creatinine 0.62 mg/dL (0.66-1.25) L 07/29/21 06:30 Hemoglobin A1c 11.8 % (4.0-6.0) H 07/18/21 22:04 Lactate 1.3 mmol/L (0.7-2.1) 07/18/21 22:04 Ferritin 1220 ng/mL (18-464) H 07/21/21 04:43 NT-Pro-B Natriuret Pep 198 pg/mL (<125) H 07/29/21 06:30 Nutrition Diagnosis: altered nutrition related laboratory values (A1c) r/t endocrine dysfunction and undesirable food choices aeb pt dx c DM2 this hospitalization, A1c 11.8, pt uninsured placing him high risk for poorly managed DM2, pt routinely ordering over carb allotment, pt desired DM2 education. Interventions: 1. Resending DM Nutrition packet for patient review. 2. Request nursing place pt menu near bedside as pt will review carb levels printed on menu for carb counting practice. 3. DM educator to call pt this week for IP DM education start as pt ready to learn at this time. EER: 45g CHO/meal Electronically Signed by: Ariane Glover 07/31/21 09:59 Clinical Diet[address] [address]
[2021-07-31] MEDS: INSULIN LISPRO 100 UNIT/ML 3ML VIAL SUBCUT ×4 (13:46→16:51)
[2021-07-31] MEDS: SODIUM CHLORIDE 0.9% FLUSH 10 ML IV (13:49)
--- NOTE | 2021-07-31 14:16 | P.PN_ITS ---
Subjective Subjective Date Patient Seen: 07/31/21 Interval history: 55-year-old male who is unvaccinated admitted to the hospital for respiratory failure due to COVID pneumonia. He again had restless night and unable to prone himself. This a.m. on 15 L high-flow non heated nasal cannula to maintain sat close to 90. We were able to lower flow rate to 10 L with prone positioning. Patient has refused high-flow heated nasal cannula. He desaturates fairly rapidly with prolonged recovery after going to commode. Exam Vital Signs (past 8 hours): - 07/31/21 07:12 07/31/21 07:50 07/31/21 14:05 Temperature 98.6 F Respiratory Rate 19 Blood Pressure 146/82 H Pulse Oximetry 95 94 93 Fraction of Inspired Oxygen 100 Oxygen Delivery Method High Flow Nasal Cannula Oxygen Flow Rate 9 Narrative Exam Narrative: General: Alert, able to speak in few word sentences, breathing does appear labored Extremities: No edema Objective Labs Result Diagrams: 07/29/21 06:30 07/29/21 06:30 Labs: Laboratory Results - last 24 hr 07/31/21 07/31/21 04:46 04:46 ALT 62 H Hep Bs Antigen Negative Hepatitis C Antibody Negative HIV 1&2 Ab/P24 Ag 4thGn Negative [facility] Medical History (Updated 07/20/21 @ 07:04 by CESAR Locke) No significant past medical history Surgical History (Updated 07/19/21 @ 03:30 by CESAR Locke) History of appendectomy Family History Mother Cancer Father Heart attack Social History household members: spouse Smoking Status: Never smoker alcohol intake: current Assessment & Plan Assessment & Plan narrative: 1. Acute respiratory failure with hypoxia and tachypnea, secondary to COVID pneumonia, acute, present on admission -completed remdesivir x 10 days, dexamethasone x 11 days discontinued 07/30, telehealth ICU doc informally consulted and agrees with discontinuation of dexam ethasone -baracitinib started 07/28 for up to 2 week course, patient had refused initiating this treatment earlier in hospital course -maintain O2 sat >90% -continue albuterol PRN -have encouraged proning which has helped slightly with saturations -D-dimer elevated at greater than 5000, CTA ruled out pulmonary embolism -decreased Lovenox to 40 mg subQ daily in light of persistent nose bleeds 2. Hyponatremia, acute, resolved 3. Diabetes with A1c of 11.8, new diagnosis -persistent elevated sugars -continue Lantus, dose decreased to 15 units b.i.d. with stopping dexamethasone -continue mealtime lispro 5 units t.i.d. and sliding scale a.c. HS Time Spent With Patient Critical Care time: I spent a total of [] minutes of critical care time on this patient's care today; this time is exclusive of procedural time. Quality VTE Deep Vein Thrombosis/Pulmonary Embolism Present on Admission: No
--- NOTE | 2021-07-31 14:16 | PC.NURSE ---
pt continues with high anxiety- talked at length about controlling his breathing and actually breathing proper ie: in thru his nose with mouth closed and exhale thru pursed lips rather than his go to which is panicky, shallow respirations which are ineffective- also noted to not use the IS as instructed but unwilling to take much direction before becoming agitated with staff- able to wean pt to 9L HFNC AND HE DID PRONE X 1 HOUR THIS DAYSHIFT
[2021-07-31] MEDS: MELATONIN 3 MG TABLET 6 MG PO (21:35)
[2021-07-31] MEDS: SENNOSIDES 8.6 MG TABLET 17.2 MG PO (21:36)
[2021-08-01] VITALS (14 sets, daily range): BP systolic 120–135; BP diastolic 63–81; PULSE 55–75; RESP 17–28; TEMP 36.5–37.1; O2SAT 91–96
[2021-08-01] MEDS: HYDROCODONE/ACET 5/325 TABLET 2 TAB PO (03:17)
[2021-08-01] MEDS: LORazepam 0.5 MG TABLET PO ×2 (03:18→21:02)
[2021-08-01 06:38] LABS: Hepatitis B Surf Ab Qualitativ Reactive (.)
[2021-08-01] MEDS: ENOXAPARIN 40 MG/0.4 ML SYRINGE SUBCUT (09:09)
[2021-08-01] MEDS: FISH OIL 1,000 MG CAPSULE 1000 MG PO (09:10)
[2021-08-01] MEDS: CHOLECALCIFEROL (VITAMIN D3) 5,000 UNIT TABLET 5000 UNIT PO (09:10)
[2021-08-01] MEDS: DOCUSATE 100 MG CAPSULE PO ×2 (09:10→20:57)
[2021-08-01] MEDS: BARICITINIB 2 MG TABLET 4 MG PO (09:10)
[2021-08-01] MEDS: ASCORBIC ACID 500 MG TABLET 3000 MG PO (09:10)
[2021-08-01] MEDS: polyethylene glycoL 3350 17 GM POWD.PACK PO (09:10)
[2021-08-01] MEDS: SODIUM CHLORIDE 0.9% FLUSH 10 ML IV ×2 (09:11→20:57)
[2021-08-01] MEDS: INSULIN GLARGINE 100 UNIT/ML 3ML PEN 15 UNIT SUBCUT ×2 (09:11→20:56)
[2021-08-01] MEDS: INSULIN LISPRO 100 UNIT/ML 3ML VIAL SUBCUT ×6 (09:13→20:56)
[2021-08-01] MEDS: ZINC SULFATE 220 MG CAPSULE PO (09:33)
[2021-08-01] MEDS: ACETAMINOPHEN 325 MG TABLET 650 MG PO ×2 (14:30→21:02)
--- NOTE | 2021-08-01 14:40 | RT ---
Sometime around 1100 this morning I called Eric, Velvet, and Sandy. Sandy left message for travel sales consultant Sabiha Whitlock and didn't get back to me. Velvet's travel sales consultant Aracelis Bashir told me that she couldn't help me out as good as eric could and go with them instead. Eric travel sales consultant [place] told me that he could get some kind of government assistance rebate that would take care of the first month. Talked with him more time around 1300 and waiting for him to fax me over the form. Called again at 1430 and no answer. I informed Nemo Soto RN about setup around 1300 and Yesica as well around 1400 about the holdup. Yesica called just a bit ago and hopefully tomorrow is the plan.
--- NOTE | 2021-08-01 15:10 | P.PN_ITS ---
Subjective Subjective Date Patient Seen: 08/01/21 Interval history: 55-year-old male who is unvaccinated admitted to the hospital for respiratory failure due to COVID pneumonia. Yesterday we had him down to 7 L nasal cannula. This morning with RT he dropped to low 80s when got him out of bed and he ended up back on 10 L O2. When I saw him this afternoon his O2 sat was 97% on 10 L. we turned down O2 to 7 L and his sats remained 93-95 % at rest. He does complain of feeling clammy but has not been febrile. Exam Vital Signs (past 8 hours): - 08/01/21 08:10 08/01/21 10:10 08/01/21 12:00 Temperature 98.0 F 98.2 F Pulse Rate 68 73 Respiratory Rate 17 17 Blood Pressure 120/63 126/74 Pulse Oximetry 95 91 95 Fraction of Inspired Oxygen 100 Oxygen Delivery Method High Flow Nasal Cannula Oxygen Flow Rate 7 Narrative Exam Narrative: General: Alert and breathing does not appear overly labored at rest, able to speak full sentences Objective Labs Result Diagrams: 07/29/21 06:30 07/29/21 06:30 Labs: Laboratory Results - last 24 hr 07/31/21 04:46 Hep Bs Antibody Reactive [facility] Medical History (Updated 07/20/21 @ 07:04 by SUE Locke-LAKESHIA) No significant past medical history Surgical History (Updated 07/19/21 @ 03:30 by CESAR Locke) History of appendectomy Family History Mother Cancer Father Heart attack Social History household members: spouse Smoking Status: Never smoker alcohol intake: current Assessment & Plan Assessment & Plan narrative: 1. Acute respiratory failure with hypoxia and tac hypnea, secondary to COVID pneumonia, acute, present on admission -completed remdesivir x 10 days, dexamethasone x 11 days discontinued 07/30, telehealth ICU doc informally consulted and agrees with discontinuation of dexamethasone -baracitinib started 07/28 for up to 2 week course, patient had refused initiating this treatment earlier in hospital course -maintain O2 sat >90% -continue albuterol PRN -have encouraged proning which has helped slightly with saturations -D-dimer elevated at greater than 5000, CTA ruled out pulmonary embolism -decreased Lovenox to 40 mg subQ daily in light of persistent nose bleeds -patient with overall improving course with decrease in O2 requirements, he is at a point where probably can be discharged tomorrow on home O2 2. Hyponatremia, acute, resolved 3. Diabetes with A1c of 11.8, new diagnosis -persistent elevated sugars, today a.m. 129, at lunch 236 -continue Lantus, dose decreased to 15 units b.i.d. with stopping dexamethasone -continue mealtime lispro 5 units t.i.d. and sliding scale a.c. HS -add metformin 500 mg b.i.d. -probably can discharge on insulin glargine and metformin, I am not sure how compliant he will be with mealtime insulin Time Spent With Patient Critical Care time: I spent a total of [] minutes of critical care time on this patient's care today; this time is exclusive of procedural time. Quality VTE Deep Vein Thrombosis/Pulmonary Embolism Present on Admission: No
[2021-08-01] MEDS: SENNOSIDES 8.6 MG TABLET 17.2 MG PO (20:57)
[2021-08-01] MEDS: MELATONIN 3 MG TABLET 6 MG PO (20:57)
[2021-08-02] VITALS (7 sets, daily range): BP systolic 122–133; BP diastolic 67–84; PULSE 74–89; RESP 16–24; TEMP 35.9–36.7; O2SAT 92–97
--- NOTE | 2021-08-02 03:34 | PC.NURSE ---
Addendum entered by Liliam Zeng R.N. 08/02/21 06:19: Patient had been doing well maintaining sat at 93% but then blew nose several times with bloody discharge and sat decreased to 86%. Took 27 min for him to recover and required oxygen being increased to 11L/min in order to get him > 90%. RT called to provide treatment and report he is now on 15L/min oxygen. Medicated with Ativan for anxiety. Original Note: Patient is alert and oriented. Breath sounds diminished but CTA with oxygen at 7L/min per HFNC and sat of 95% so decreased to 6L/min and will continue to monitor on continuous oximetry and wean as able. States he still becomes SOB with activity but once lying quietly it gets better. HRR. Denies nausea. BT present and abdomen is soft. Denies dysuria, frequency or urgency with urination. Able to turn himself in bed. States he feels unsteady/weak on feet so is assisted when out of bed with SBA. Denies pain. Wearing bilateral calf SCD's. On COVID precautions. Fall risk score is moderate but calls appropriately for assistance so bed alarm is not activated.
[2021-08-02] MEDS: LORazepam 0.5 MG TABLET PO ×4 (06:04→23:50)
[2021-08-02] MEDS: ALBUTEROL 2.5 MG/3 ML NEB (ADULT) INH (06:12)
[2021-08-02] MEDS: ENOXAPARIN 40 MG/0.4 ML SYRINGE SUBCUT (08:01)
[2021-08-02] MEDS: polyethylene glycoL 3350 17 GM POWD.PACK PO (08:02)
[2021-08-02] MEDS: DOCUSATE 100 MG CAPSULE PO ×2 (08:02→21:52)
[2021-08-02] MEDS: ASCORBIC ACID 500 MG TABLET 3000 MG PO (09:11)
[2021-08-02] MEDS: FISH OIL 1,000 MG CAPSULE 1000 MG PO (09:12)
[2021-08-02] MEDS: CHOLECALCIFEROL (VITAMIN D3) 5,000 UNIT TABLET 5000 UNIT PO (09:13)
[2021-08-02] MEDS: INSULIN GLARGINE 100 UNIT/ML 3ML PEN 15 UNIT SUBCUT ×2 (09:17→21:47)
[2021-08-02] MEDS: INSULIN LISPRO 100 UNIT/ML 3ML VIAL SUBCUT ×7 (09:18→21:45)
[2021-08-02] MEDS: BARICITINIB 2 MG TABLET 4 MG PO (11:00)
[2021-08-02] MEDS: ZINC SULFATE 220 MG CAPSULE PO (14:11)
--- NOTE | 2021-08-02 16:01 | PM.PN.1 ---
Subjective Subjective Date Patient Seen: 08/02/21 Time Patient Seen: 08:00 Interval history: This morning he had an episdoe of tachypnea and desaturation. Was placed up to 15L oxygen, but then titrated down. Discussing with RN patient is significantly anxious, but ativan does help. Exam Vital Signs (past 8 hours): - 08/02/21 09:00 08/02/21 11:04 Temperature 96.7 F L Pulse Rate 76 Respiratory Rate 16 Blood Pressure 122/84 Pulse Oximetry 93 96 Fraction of Inspired Oxygen 100 Oxygen Delivery Method High Flow Nasal Cannula Oxygen Flow Rate 15 Narrative Exam Narrative: GEN: no acute distress CV: regular rate and rhythm, no murmurs PULM: coarse breath sounds bilaterally ABD: soft, nontender NEURO: awake, alert, oriented, no focal deficits Objective Labs Result Diagrams: 07/29/21 06:30 07/29/21 06:30 [facility] Medical History (Updated 07/20/21 @ 07:04 by SUE Locke-LAKESHIA) No significant past medical history Surgical History (Updated 07/19/21 @ 03:30 by CESAR Locke) History of appendectomy Family History Mother Cancer Father Heart attack Social History household members: spouse Smoking Status: Never smoker alcohol intake: current Assessment & Plan Assessment & Plan narrative: 1. Acute respiratory failure with hypoxia and tachypnea, secondary to COVID pneumonia, acute, present on admission -completed remdesivir x 10 days, dexamethasone x 11 days discontinued 07/30 -baracitinib started 07/28 for up to 2 week course, patient had refused initiating this treatment earlier in hospital course -maintain O2 sat >90% -continue albuterol PRN -have encouraged proning which has helped slightly with saturations -D-dimer elevated at greater than 5000, CTA ruled out pulmonary embolism -decreased Lovenox to 40 mg subQ daily in light of persistent nose bleeds -patient with overall improving course with decrease in O2 requirements, he is at a point where probably can be discharged tomorrow on home O2 2. Hyponatremia, acute, resolved 3. Diabetes with A1c of 11.8, new diagnosis -persistent elevated sugars -continue Lantus, dose decreased to 15 units b.i.d. with stopping dexamethasone -continue mealtime lispro 5 units t.i.d. and sliding scale a.c. HS -add metformin 500 mg b.i.d. -probably can discharge on insulin glargine and metformin, I am not sure how compliant he will be with mealtime insulin Time Spent With Patient Critical Care time: I spent a total of [] minutes of critical care time on this patient's care today; this time is exclusive of procedural time. Quality VTE Deep Vein Thrombosis/Pulmonary Embolism Present on Admission: No
--- NOTE | 2021-08-02 16:34 | CM.DPC ---
DCP/continued: Reviewed chart. Per provider patient is not medically stable for discharge today. Spoke with patient's spouse/Christianne via the telephone. Christianne in agreement for patient to come home but has some concerns about his medical needs once home. Christianne provided with verbal names/numbers of providers that she can call to schedule outpatient follow up appointments. Christianne also aware that diabetic teaching has been started at [facility] [employer]URINE [employer]ER looked into formerly [facility], [facility] resources for patient and family. Obtained resources specific to COVID and no insurance. All resources placed in red folder on acute care floor. RN/Eloise also updated. It is anticipated that patient will be medically stable once he can manage on under 10 liters of 02 with activity. FIGURINE MAKER has spoken with respiratory and they are coordinating 02 for home use. Respiratory made aware of state program for assistance with home 02. P: Anticipate home within the next 24-48hrs. Patient will need home 02. Community resources to be provided to patient/spouse upon d/c. Spouse given [facility] phone numbers via telephone today. Provider updated. JON
--- NOTE | 2021-08-02 17:07 | PC.NURSE ---
pt will be stayinf the night, NICOLÁS Kraft aware as well as coordinator, pt is having difficulty getting is pain medication refil on time.
--- NOTE | 2021-08-02 18:10 | PC.NURSE ---
Pt got up to use the bedside commode to have a bowel movement and became short of breath with sats in the low 80s. pt needed his highflow increase to 15 L and had to be in the prone position in bed until oxygen saturation when up to the low 90's. RT was notify during this episode. pt now has recuperated and was able to eat dinner.
[2021-08-02] MEDS: MELATONIN 3 MG TABLET 6 MG PO (21:51)
[2021-08-02] MEDS: SENNOSIDES 8.6 MG TABLET 17.2 MG PO (21:52)
[2021-08-02] MEDS: SODIUM CHLORIDE 0.9% FLUSH 10 ML IV (22:25)
--- NOTE | 2021-08-02 22:52 | PC.NURSE ---
Pt now oxygen saturation is now 96% on 10 L NC highflow
[2021-08-03] VITALS (12 sets, daily range): BP systolic 92–122; BP diastolic 59–79; PULSE 61–79; RESP 17–20; TEMP 35.9–37.3; O2SAT 88–97
--- NOTE | 2021-08-03 00:33 | PC.NURSE ---
Patient is alert and oriented with some anxiety although states improved with receiving scheduled Ativan. Breath sounds diminished throughout. Oxygen at 10L/min per HFNC with sat of 96% so oxygen decreased to 9L/min; remains on continuous oximetry. Denies SOB at rest but reports marked increase in SOB when up to commode. Has intermittent, dry, non-productive cough. Had bloody nasal discharge yesterday a.m. after blowing nose but states that is not happening as much. No bleeding noted at this time. Denies nausea. BT present and abdomen is soft; had BM yesterday. Voiding per urinal; denies dysuria, frequency or urgency. Is able to move himself in bed. Evening RN reports he is out of bed with walker and 1 assist only to BSC. Denies pain. Wearing bilateral calf SCD's. Remains on isolation related to being COVID positive. Fall risk score is moderate but no alarm in use at this time as patient calls for assistance appropriately.
[2021-08-03] MEDS: HYDROCODONE/ACET 5/325 TABLET 2 TAB PO ×2 (05:25→21:52)
[2021-08-03] MEDS: LORazepam 0.5 MG TABLET PO ×4 (05:25→23:53)
[2021-08-03] MEDS: INSULIN LISPRO 100 UNIT/ML 3ML VIAL SUBCUT ×5 (09:00→17:21)
[2021-08-03] MEDS: BARICITINIB 2 MG TABLET 4 MG PO (09:02)
[2021-08-03] MEDS: ASCORBIC ACID 500 MG TABLET 3000 MG PO (09:02)
[2021-08-03] MEDS: DOCUSATE 100 MG CAPSULE PO ×2 (09:03→21:42)
[2021-08-03] MEDS: ENOXAPARIN 40 MG/0.4 ML SYRINGE SUBCUT (09:03)
[2021-08-03] MEDS: CHOLECALCIFEROL (VITAMIN D3) 5,000 UNIT TABLET 5000 UNIT PO (09:03)
[2021-08-03] MEDS: INSULIN GLARGINE 100 UNIT/ML 3ML PEN 15 UNIT SUBCUT ×2 (09:04→21:41)
[2021-08-03] MEDS: FISH OIL 1,000 MG CAPSULE 1000 MG PO (09:04)
[2021-08-03] MEDS: polyethylene glycoL 3350 17 GM POWD.PACK PO (09:05)
[2021-08-03] MEDS: SODIUM CHLORIDE 0.9% FLUSH 10 ML IV ×2 (09:06→21:41)
[2021-08-03] MEDS: ZINC SULFATE 220 MG CAPSULE PO (09:06)
--- NOTE | 2021-08-03 13:44 | PC.NURSE ---
Patient A/O x 3, VSS. Remains afebrile. Denies pain. Endorses feeling SOB with activity, intermittent non-productive cough, currently 94% on 6L, RR 18, lungs CTA. Patient voiding without complications, using urinal. Remains saline locked, RUE Midline intact, patent. SCD's on bilaterally. Bed alarm remains off. Patient calls appropriately. Call light in reach.
--- NOTE | 2021-08-03 15:30 | DIET.PN1 ---
Dietary/Diabetes Education Progress Note Assessment: 55 y/o M treated for covid pneumonia and newly dx with Dm. BG improved toward ADA goal of <180 mg/dL while admitted. May benefit from an increase of 1-2 units with breakfast, if lunch readings persist over 180 Called Aung on the phone today to see if he felt in a place to discuss his diabetes diagnosis. Still having a SOB, which made it difficult for him to converse. He is open to OP DM ed. Denies any questions at this time, but asked that this RDN/CDCES call his , Christianne. Called Christianne, and she had many questions nutrition, DM type, insurance, and PCP visit availability. Nutrition: we discussed keeping carbs to 1c at meals at this time, eating non starchy veg and lean proteins. DM type: per labs he seems to have T2Dm c WNL values for MORELIA and C-peptide. His chart indicates T1 in active problems. I shared this with Christianne, but told her I could confirm with providers in rounds tomorrow. Insurance: Christianne and Aung do not have health insurance. They use to have coverage from work but it was expensive and not used often. We discussed how DM can be costly with provider visits, medications, and DM supplies. She agreed and plans to contact Aung's work for open enrollment info. PCP availability: Christianne called [facility]. States they said they could get Aung scheduled in two weeks. She is wondering if this is too long for DM care. Discussed how he will be discharged on meds and two weeks should be ok after discharge. Encouraged her to ask for a referral for OP DM ed at PCP visit. She agreed. Ht: 177.8 cm Wt: 83.5 kg BMI: 26.9 UBW: Last BM: 08/02/21 (08/02/21 16:45) MNA: 8 Mikael Score: 18 Diet: 07/19/21 Breakfast Carbohydrate Consistent Diet Diet Modifications: ONS Ensure Max c lunch Carbohydrate level: Medium (3 CHO) Bedtime snack: Yes Nutrition Percent Meal Consumed 100% 08/03/21 12:54 Percent Meal Consumed 100% 08/03/21 07:00 Percent Meal Consumed 100% 08/02/21 18:18 Percent Meal Consumed 100% 08/01/21 19:26 Labs: RBC 4.73 X10^6/uL (4.5-5.9) 07/29/21 06:30 Hgb 15.2 g/dL (13.5-17.5) 07/29/21 06:30 Hct 44.4 % (41-53) 07/29/21 06:30 Creatinine 0.62 mg/dL (0.66-1.25) L 07/29/21 06:30 Hemoglobin A1c 11.8 % (4.0-6.0) H 07/18/21 22:04 Lactate 1.3 mmol/L (0.7-2.1) 07/18/21 22:04 Ferritin 1220 ng/mL (18-464) H 07/21/21 04:43 NT-Pro-B Natriuret Pep 198 pg/mL (<125) H 07/29/21 06:30 Nutrition Diagnosis: Altered nutrition related lab values r/t new Dm dx aeb hgA1c of 11.8% Interventions: Discussed nutrition, Dm type, medical insurance and PCP follow-up, DM ed resources with . She was very receptive. Reviewed BG trends. Today lunch reading was 168 mg/dL, but has been >190 mg/dL over the last three days. May benefit from increase in meal time insulin at breakfast by 1-2 units if ac lunch reading continues above goal. Monitoring/Evaluations: BG, PO, Dm ed appropriateness Electronically Signed by: Lizbeth Fernandes 08/03/21 15:30 Clinical Dietitian [address] [id number]
--- NOTE | 2021-08-03 16:35 | PM.PN.1 ---
Subjective Subjective Date Patient Seen: 08/03/21 Time Patient Seen: 08:00 Interval history: Oxygen was weaned down to 4L at rest yesterday. When he got up he desat to low 80s, took a significant amount of time for oxygen to recover, was placed back on 15L. This morning he is back down to 9L. I weaned him down to 5L with O2 sats of 93%. He denies shortness of breath, but he is tired. Exam Vital Signs (past 8 hours): - 08/03/21 09:20 08/03/21 10:46 08/03/21 12:00 Temperature 98.3 F Pulse Rate 69 Respiratory Rate 17 Blood Pressure 115/64 Pulse Oximetry 94 95 93 08/03/21 13:00 08/03/21 13:40 Temperature Pulse Rate Respiratory Rate 20 18 Blood Pressure Pulse Oximetry 88 L 95 Fraction of Inspired Oxygen 100 Oxygen Delivery Method Nasal Cannula Oxygen Flow Rate 6 Narrative Exam Narrative: GEN: no acute distress CV: regular rate and rhythm, no murmurs PULM: coarse breath sounds bilaterally ABD: soft, nontender NEURO: awake, alert, oriented, no focal deficits Objective Labs Result Diagrams: 07/29/21 06:30 07/29/21 06:30 [facility] Medical History (Updated 07/20/21 @ 07:04 by SUE Locke-LAKESHIA) No significant past medical history Surgical History (Updated 07/19/21 @ 03:30 by CESAR Locke) History of appendectomy Family History Mother Cancer Father Heart attack Social History household members: spouse Smoking Status: Never smoker alcohol intake: current Assessment & Plan Assessment & Plan narrative: 1. Acute respiratory failure with hypoxia and tachypnea, secondary to COVID pneumonia, acute, present on admission -completed remdesivir x 10 days, dexamethasone x 11 days discontinued 07/30 -baracitinib started 07/28 for up to 2 week course, patient had refused initiating this treatment earlier in hospital course -maintain O2 sat >90% -continue albuterol PRN -have encouraged proning which has helped slightly with saturations -D-dimer elevated at greater than 5000, CTA ruled out pulmonary embolism -decreased Lovenox to 40 mg subQ daily in light of persistent nose bleeds -patient with overall improving course with decrease in O2 requirements, he is at a point where probably can be discharged tomorrow on home O2 2. Hyponatremia, acute, resolved 3. Diabetes with A1c of 11.8, new diagnosis -persistent elevated sugars -continue Lantus, dose decreased to 15 units b.i.d. with stopping dexamethasone -continue mealtime lispro 5 units t.i.d. and sliding scale a.c. HS -add metformin 500 mg b.i.d. -probably can discharge on insulin glargine and metformin, I am not sure how compliant he will be with mealtime insulin Time Spent With Patient Critical Care time: I spent a total of [] minutes of critical care time on this patient's care today; this time is exclusive of procedural time. Quality VTE Deep Vein Thrombosis/Pulmonary Embolism Present on Admission: No
[2021-08-03] MEDS: SENNOSIDES 8.6 MG TABLET 17.2 MG PO (21:42)
[2021-08-03] MEDS: MELATONIN 3 MG TABLET 6 MG PO (21:42)
[2021-08-04] VITALS (9 sets, daily range): BP systolic 112–135; BP diastolic 68–85; PULSE 65–81; RESP 16–19; TEMP 36–36.7; O2SAT 93–98
[2021-08-04] MEDS: LORazepam 0.5 MG TABLET PO ×3 (05:46→17:50)
--- NOTE | 2021-08-04 08:00 | DI.RAD.S_ITS ---
PROCEDURE: XR CHEST 1V INDICATIONS: Persistent hypoxemia TECHNIQUE: One view of the chest was acquired. COMPARISON: [facility], CR, XR CHEST 1V, 07/28/2021, 17:50. FINDINGS: Surgical changes and devices: A tubular structure overlies the right axilla, which may reflect a peripheral venous access. Lungs and pleura: Redemonstrated low lung volumes and bilateral airspace opacities, grossly unchanged. No pleural effusions or pneumothorax. Mediastinum: Mediastinal contours appear normal. Heart size is normal. Bones and chest wall: No suspicious bony lesions. Overlying soft tissues appear unremarkable. IMPRESSION: No significant interval change. Dictated by: Felix Matamoros M.D. on 08/04/2021 at 7:56 Approved by: Felix Matamoros M.D. on 08/04/2021 at 7:58
[2021-08-04] MEDS: INSULIN LISPRO 100 UNIT/ML 3ML VIAL SUBCUT ×4 (09:31→17:51)
[2021-08-04] MEDS: INSULIN GLARGINE 100 UNIT/ML 3ML PEN 15 UNIT SUBCUT ×2 (09:31→22:10)
[2021-08-04] MEDS: ENOXAPARIN 40 MG/0.4 ML SYRINGE SUBCUT (09:41)
[2021-08-04] MEDS: SODIUM CHLORIDE 0.9% FLUSH 10 ML IV ×2 (09:42→21:24)
[2021-08-04] MEDS: DOCUSATE 100 MG CAPSULE PO ×2 (09:42→21:23)
[2021-08-04] MEDS: polyethylene glycoL 3350 17 GM POWD.PACK PO (09:42)
[2021-08-04] MEDS: CHOLECALCIFEROL (VITAMIN D3) 5,000 UNIT TABLET 5000 UNIT PO (09:45)
[2021-08-04] MEDS: FISH OIL 1,000 MG CAPSULE 1000 MG PO (09:45)
[2021-08-04] MEDS: ASCORBIC ACID 500 MG TABLET 3000 MG PO (09:45)
[2021-08-04] MEDS: BARICITINIB 2 MG TABLET 4 MG PO (09:49)
[2021-08-04] MEDS: ZINC SULFATE 220 MG CAPSULE PO (09:49)
[2021-08-04] MEDS: ACETAMINOPHEN 325 MG TABLET 650 MG PO (12:56)
--- NOTE | 2021-08-04 13:26 | PC.NURSE ---
Day shift: Pt calling out for help and saying can't breath. Can't breath. In room and turned HF NC to 15 L per RT. LINDA Hutchison informed as well. Pt instructed to breath in through his nose and out through his mouth slowly. Pt having a difficult time slowing his breathing down. RT in room and Pt helped to prone position and more instruction given to help slow breathing and to take deeper breaths. O2 sat approx 88-90 at 1325. Was also given PO Ativan per DEC for anxiety. Will continue to monitor. Dr Howe informed of the above written information. Call light in reach. Pt has also been a mouth breather per RT.
[2021-08-04 16:07] LABS: Hematocrit 44.6 % (41-53); Hemoglobin 15.2 g/dL (13.5-17.5); Mean Corpuscular HGB Conc 34.1 % (30-36); Mean Corpuscular Hemoglobin 32.1 PG (26-34); Mean Corpuscular Volume 94.1 fL (80-100); Platelet Count 236 X10^3/uL (150-400); Red Blood Cell Count 4.75 X10^6/uL (4.5-5.9); Red Cell Distribution Width 12.9 % (11.6-14.8); White Blood Cell Count 8.8 X10^3/uL (4.5-11.0)
[2021-08-04 16:20] LABS: BUN Creatinine Ratio 33.3 (6-22); Blood Urea Nitrogen 23 mg/dL (9-20); Carbon Dioxide 35 mmol/L (22-32); Chloride 96 mmol/L (98-107); Estimated Glomerular Filt Rate > 60.0 mL/min (>60); Glucose 152 mg/dL (70-100); HEMOLYSIS < 15 (0-50); Potassium 4.8 mmol/L (3.4-5.1); Sodium 132 mmol/L (137-145)
--- NOTE | 2021-08-04 17:33 | PM.PN.1 ---
Subjective Subjective Date Patient Seen: 08/04/21 Time Patient Seen: 08:00 Interval history: He continues to have hypoxemia with movement. He denies any significant shortness of breath currently. He at rest can wean down to 4-6L of oxygen but then often gets tachypneic, hypoxemic and anxious. Exam Vital Signs (past 8 hours): - 08/04/21 12:39 Temperature 97.6 F Pulse Rate 81 Respiratory Rate 18 Blood Pressure 135/85 Pulse Oximetry 95 Fraction of Inspired Oxygen 100 Oxygen Delivery Method High Flow Nasal Cannula Oxygen Flow Rate 0 Narrative Exam Narrative: GEN: no acute distress CV: regular rate and rhythm, no murmurs PULM: coarse breath sounds bilaterally ABD: soft, nontender NEURO: awake, alert, oriented, no focal deficits Objective Labs Result Diagrams: 08/04/21 15:55 08/04/21 15:55 Labs: Laboratory Results - last 24 hr 08/04/21 08/04/21 15:55 15:55 WBC 8.8 RBC 4.75 Hgb 15.2 Hct 44.6 MCV 94.1 MCH 32.1 MCHC 34.1 RDW 12.9 Plt Count 236 Sodium 132 L Potassium 4.8 Chloride 96 L Carbon Dioxide 35 H BUN 23 H Creatinine 0.69 Estimated GFR > 60.0 BUN/Creatinine Ratio 33.3 H Glucose 152 H Calcium 9.0 PFSH Medical History (Updated 07/20/21 @ 07:04 by SUE Locke-LAKESHIA) No significant past medical history Surgical History (Updated 07/19/21 @ 03:30 by CESAR Locke) History of appendectomy Family History Mother Cancer Father Heart attack Social History household members: spouse Smoking Status: Never smoker alcohol intake: current Assessment & Plan Assessment & Plan narrative: 1. Acute respiratory failure with hypoxia and tachypnea, secondary to COVID pneumonia, acute, present on admission -completed remdesivir x 10 days, dexamethasone x 11 days discontinued 07/30 -baracitinib started 07/28 for up to 2 week course, patient had refused initiating this treatment earlier in hospital course -maintain O2 sat >90% -continue albuterol PRN -have encouraged proning which has helped slightly with saturations -D-dimer elevated at greater than 5000, CTA ruled out pulmonary embolism -decreased Lovenox to 40 mg subQ daily in light of persistent nose bleeds -repeat chest xray showed no significant change 2. Hyponatremia, acute, resolved 3. Diabetes with A1c of 11.8, new diagnosis -persistent elevated sugars -continue Lantus, dose decreased to 15 units b.i.d. with stopping dexamethasone -continue mealtime lispro 5 units t.i.d. and sliding scale a.c. HS -probably can discharge on insulin glargine and metformin, I am not sure how compliant he will be with mealtime insulin Time Spent With Patient Critical Care time: I spent a total of [] minutes of critical care time on this patient's care today; this time is exclusive of procedural time. Quality VTE Deep Vein Thrombosis/Pulmonary Embolism Present on Admission: No
[2021-08-04] MEDS: MELATONIN 3 MG TABLET 6 MG PO (21:23)
[2021-08-04] MEDS: SENNOSIDES 8.6 MG TABLET 17.2 MG PO (21:23)
[2021-08-05] VITALS (9 sets, daily range): BP systolic 110–127; BP diastolic 62–81; PULSE 68–93; RESP 18–22; TEMP 36–36.9; O2SAT 86–95
[2021-08-05] MEDS: LORazepam 0.5 MG TABLET PO ×5 (00:28→23:56)
[2021-08-05] MEDS: ACETAMINOPHEN 325 MG TABLET 650 MG PO (02:25)
--- NOTE | 2021-08-05 06:01 | PC.NURSE ---
Patient had SCDs on most of shift. He asked to have them removed.
[2021-08-05] MEDS: INSULIN GLARGINE 100 UNIT/ML 3ML PEN 15 UNIT SUBCUT ×2 (08:56→21:03)
[2021-08-05] MEDS: ASCORBIC ACID 500 MG TABLET 3000 MG PO (08:57)
[2021-08-05] MEDS: SODIUM CHLORIDE 0.9% FLUSH 10 ML IV ×2 (08:57→20:40)
[2021-08-05] MEDS: ZINC SULFATE 220 MG CAPSULE PO (08:57)
[2021-08-05] MEDS: BARICITINIB 2 MG TABLET 4 MG PO (08:57)
[2021-08-05] MEDS: FISH OIL 1,000 MG CAPSULE 1000 MG PO (08:57)
[2021-08-05] MEDS: ENOXAPARIN 40 MG/0.4 ML SYRINGE SUBCUT (08:57)
[2021-08-05] MEDS: CHOLECALCIFEROL (VITAMIN D3) 5,000 UNIT TABLET 5000 UNIT PO (08:57)
[2021-08-05] MEDS: polyethylene glycoL 3350 17 GM POWD.PACK PO (08:57)
[2021-08-05] MEDS: DOCUSATE 100 MG CAPSULE PO ×2 (08:58→20:55)
[2021-08-05] MEDS: INSULIN LISPRO 100 UNIT/ML 3ML VIAL SUBCUT ×5 (09:15→21:01)
--- NOTE | 2021-08-05 14:29 | CM.DPC ---
DCP Cont: Per MD, keep attempting to eval pt for plan of d/c home with spouse and new home oxygen but pt continues to desat with activity to a point of not being stable to d/c home with oxygen yet. Per RN, pt continues to have some anxiety, typically is a mouth breather, and relies a lot of staff interventions. MD and RT will continue to attempt to stabilize pt enough for safe d/c to home. [facility] and HH not really an option as pt does not have insurance and no financial means to pay privately for SNF or HH and no current SNFs accepting COVID+ patients. Prior SW provided [facility] resources to spouse and copies in chart for pt d/c packet for options after d/c to home. Plan: SW to follow closely for plan of d/c to home via spouse POV. Patient will need home 02. Community resources to be provided to patient/spouse upon d/c. Spouse given [facility] phone numbers via telephone. YASMIN Patricia
--- NOTE | 2021-08-05 15:09 | PM.PN.1 ---
Subjective Subjective Date Patient Seen: 08/05/21 Time Patient Seen: 15:09 Interval history: ?He continues to have hypoxemia with movement. He denies any significant shortness of breath currently. He at rest can wean down to 4-6L of oxygen but then often gets tachypneic, hypoxemic and anxious. Exam Vital Signs (past 8 hours): - 08/05/21 08:00 08/05/21 09:17 08/05/21 12:55 Temperature 98.1 F 96.8 F L Pulse Rate 75 68 Respiratory Rate 22 20 Blood Pressure 114/75 113/62 Pulse Oximetry 92 94 93 08/05/21 14:38 Temperature Pulse Rate Respiratory Rate Blood Pressure Pulse Oximetry 86 L Fraction of Inspired Oxygen 100 Oxygen Delivery Method Nasal Cannula Oxygen Flow Rate 4 Narrative Exam Narrative: GEN: no acute distress CV: regular rate and rhythm, no murmurs PULM: coarse breath sounds bilaterally ABD: soft, nontender NEURO: awake, alert, oriented, no focal deficits Objective Labs Result Diagrams: 08/04/21 15:55 08/04/21 15:55 Labs: Laboratory Results - last 24 hr 08/04/21 08/04/21 15:55 15:55 WBC 8.8 RBC 4.75 Hgb 15.2 Hct 44.6 MCV 94.1 MCH 32.1 MCHC 34.1 RDW 12.9 Plt Count 236 Sodium 132 L Potassium 4.8 Chloride 96 L Carbon Dioxide 35 H BUN 23 H Creatinine 0.69 Estimated GFR > 60.0 BUN/Creatinine Ratio 33.3 H Glucose 152 H Calcium 9.0 PFSH Medical History (Updated 07/20/21 @ 07:04 by SUE Locke-LAKESHIA) No significant past medical history Surgical History (Updated 07/19/21 @ 03:30 by CESAR Locke) History of appendectomy Family History Mother Cancer Father Heart attack Social History household members: spouse Smoking Status: Never smoker alcohol intake: current Assessment & Plan Assessment & Plan narrative: 1. Acute respiratory failure with hypoxia and tachypnea, secondary to COVID pneumonia, acute, present on admission -completed remdesivir x 10 days, dexamethasone x 11 days discontinued 07/30 -baracitinib started 07/28 for up to 2 week course, patient had refused initiating this treatment earlier in hospital course -maintain O2 sat >90% -continue albuterol PRN -have encouraged proning which has helped slightly with saturations -D-dimer elevated at greater than 5000, CTA ruled out pulmonary embolism -decreased Lovenox to 40 mg subQ daily in light of persistent nose bleeds -repeat chest xray showed no significant change 2. Hyponatremia, acute, resolved 3. Diabetes with A1c of 11.8, new diagnosis -persistent elevated sugars -continue Lantus, dose decreased to 15 units b.i.d. with stopping dexamethasone -continue mealtime lispro 5 units t.i.d. and sliding scale a.c. HS -probably can discharge on insulin glargine and metformin, I am not sure how compliant he will be with mealtime insulin Time Spent With Patient Critical Care time: I spent a total of [] minutes of critical care time on this patient's care today; this time is exclusive of procedural time. Quality VTE Deep Vein Thrombosis/Pulmonary Embolism Present on Admission: No
[2021-08-05] MEDS: MELATONIN 3 MG TABLET 6 MG PO (20:55)
[2021-08-06] MEDS: HYDROCODONE/ACET 5/325 TABLET 2 TAB PO (00:04)
[2021-08-06] MEDS: LORazepam 0.5 MG TABLET PO ×2 (06:31→12:48)
[2021-08-06 07:50] VITALS: BP 117/73; PULSE 57; RESP 16; TEMP 36.8; O2SAT 96
[2021-08-06] MEDS: polyethylene glycoL 3350 17 GM POWD.PACK PO (09:41)
[2021-08-06] MEDS: ENOXAPARIN 40 MG/0.4 ML SYRINGE SUBCUT (09:41)
[2021-08-06] MEDS: BARICITINIB 2 MG TABLET 4 MG PO (09:41)
[2021-08-06] MEDS: ZINC SULFATE 220 MG CAPSULE PO (09:42)
[2021-08-06] MEDS: FISH OIL 1,000 MG CAPSULE 1000 MG PO (09:44)
[2021-08-06] MEDS: ASCORBIC ACID 500 MG TABLET 3000 MG PO (09:44)
[2021-08-06] MEDS: CHOLECALCIFEROL (VITAMIN D3) 5,000 UNIT TABLET 5000 UNIT PO (09:45)
[2021-08-06] MEDS: DOCUSATE 100 MG CAPSULE PO (09:45)
[2021-08-06] MEDS: SODIUM CHLORIDE 0.9% FLUSH 10 ML IV (09:46)
[2021-08-06 10:00] VITALS: O2SAT 95
[2021-08-06] MEDS: INSULIN GLARGINE 100 UNIT/ML 3ML PEN 15 UNIT SUBCUT (10:00)
[2021-08-06] MEDS: INSULIN LISPRO 100 UNIT/ML 3ML VIAL SUBCUT (10:00)
[2021-08-06 10:08] VITALS: O2SAT 97
--- NOTE | 2021-08-06 11:06 | P.DS_ITS ---
History of Present Illness History of Present Illness Date Patient Seen: 08/06/21 Time Patient Seen: 11:06 Chief complaint: stomach pain, recent + covid Narrative: Per Eolise Cunha, [employer]ATOR-: The patient is a 55-year-old male Aung Corrales diagnosed with COVID 1 week ago presented to the ED with increased abdominal pain and nausea.? No initial dif ficulty breathing or respiratory distress, but complaining of generalized body aches and pains.? The patient stated in the ED overall I feel like I am dying.?Initially O2 sat remains 92-93% on room air and afibrile.? He is not vaccinated.? Patient continued to complain of severe abdominal pain and nausea CT of the abdomen and pelvis were unremarkable, but while remaining in the ED patient deteriorated into acute respiratory failure requiring 2-3 L O2 to achieve O2 saturation of 90%.? Patient also demonstrated uncontrolled hypertension, and tachypneic with a respiratory rate of 37.? Patient reports that he was diagnosed a week ago on Saturday with COVID 2 days later he began to have decreased appetite nausea and mild vomiting reports blackish stool 2 days ago, no diarrhea, fever x2 days. Patient reports that a doctor in [place] over the phone prescribed him azithromycin, methylprednisone, Zofran, and albuterol for his COVID 19 infection-he has taken 3 days worth of the medication in which time his condition has only worsened.? The patient denies any medical history, no medications, only takes pldo-hgk-liwqumc vitamins.? Patient did notify his employer at the [employer] regarding his positive COVID test.? Patient has never smoked, no history of heart attack, stroke, respitory disease, or blood clots. Upon admit exam patient appears continued SOB, unable to complete full sentence, extremly anxious, continued compliant of abd pain midline just above the umbilicus. Patient states pain is worsened with eating.? Patient denies urinary symptoms, last BM 2 days ago, denies blood in his urine or hematemesis. Patient's vitals upon admit temp 98.9?, BP 173/95, HR 98, R 37, O2 saturation 90% on 2 L nasal cannula.? Patient WBC within normal limits, platelets mildly decreased at 146.? Demonstrating hyponatremia Na 129, chloride 92, BUN 26, creatinine 0.61, with a glucose of 316.? Patient does not have anion gap:13, sofa score:? 3, rocks:? 7.60 low risk for intubation, lipase is negative.? Chest x-ray demonstrates bilateral patchy interstitial infiltrates consistent with COV ID pneumonia.? Patient admitted for COVID pneumonia with secondary acute respiratory failure, hyponatremia, hyperglycemia, elevated blood pressure, and thrombocytopenia. Discharge Providers Provider Date of admission: 07/19/21 01:56 Discharge Date: 08/06/21 Consults: 07/19/21 02:28 Consult to Respiratory Therapy Evaluate & Treat Comment: COVID pneum/ARF Physician Instructions: Evaluate and treat 07/19/21 06:13 Consult to Dietitian, Adult Routine Comment: pt reports losing >15 lbs win last 2 weeks Reason For Exam: weight loss d/t covid 19 related gi upset 07/20/21 14:15 Consult to Respiratory Therapy Evaluate & Treat Comment: Physician Instructions: Evaluate and treat 07/23/21 07:15 Consult After Hours PICC Line RN Urgent Comment: Discharge provider: Jesus Barajas DO Summary Hospital Course Discharge Diagnosis: ?1. Acute respiratory failure with hypoxia and tachypnea, secondary to COVID pneumonia, acute, present on admission 2. Hyponatremia, acute, resolved 3. Diabetes with A1c of 11.8, new diagnosis 4. anxiety Hospital Course: This is a 55-year-old male who was admitted with acute respiratory failure with hypoxia secondary to COVID-[address] angiogram was performed which showed no evidence of pulmonary embolism but did show bilateral infiltrates. He continued to require high amounts of oxygen and was ultimately increased to heated high-flow at one point. He was initially started on remdesivir and Decadron, but later agreed to trial of Baricitinib. He had a prolonged recovery, and had frequent desaturations with minimal activity. He was admitted for a total of 18 days. On the day of discharge, the patient was able to maintain his oxygen saturations generally above 90% while on 5 L. he was discharged home with home oxygen. He was also found to have diabetes with an A1c of 11.8 on admission. The patient was started on Lantus therapy, decreased slightly to 15 units b.i.d. after stopping his steroids. He was also on some mealtime dosing with 5 units with meals. He was discharged on 15 units twice a day Lantus therapy, and metformin. However, the patient does not have insurance and it is unclear if he will be able to afford Lantus. I suggested they reach out to the manufacture for possible discount coupon. There are other option would be to obtain less ideal therapies via [email or web address]. I recommend prompt follow-up with the primary care provider for further diabetes management, though his management is complicated without insurance. He was also noted to have anxiety, treated as an inpatient with lorazepam. Instead of this medication on discharge, recommend low dose initiation of fluoxetine daily with PCP follow up for continuing this therapy if it is effective. Time Spent with Patient Time spent: Greater than 30 minutes Exam Vital Signs (past 8 hours): - 08/06/21 07:50 08/06/21 10:08 Temperature 98.2 F Pulse Rate 57 L Respiratory Rate 16 Blood Pressure 117/73 Pulse Oximetry 96 97 Fraction of Inspired Oxygen 100 Oxygen Delivery Method High Flow Nasal Cannula Oxygen Flow Rate 7 Narrative Exam Narrative: ?GEN: no acute distress, thin appearing and mildly ill. CV: regular rate and rhythm, no murmurs PULM: coarse breath sounds bilaterally, no wheezing. ABD: soft, nontender NEURO: awake, alert, oriented, no focal deficits. Ambulatory without assistance. Objective Labs Result Diagrams: 08/04/21 15:55 08/04/21 15:55 [facility] Medical History (Updated 07/20/21 @ 07:04 by SUE Locke-LAKESHIA) No significant past medical history Surgical History (Updated 07/19/21 @ 03:30 by CESAR Locke) History of appendectomy Family History Mother Cancer Father Heart attack Social History household members: spouse Smoking Status: Never smoker alcohol intake: current Discharge Plan Discharge Plan Patient Disposition: Home Provider Discharge Comment: You were admitted to the hospital with COVID pneumonia. Found to have diabetes as well. Given no insurance, I would recommend checking the photograph printer's website ([employer]) for a prescription coupon to help with cost. You can also purchase insulin cheapest at [facility] though these are sh ort acting and not recommended, they are actually over the counter but you need to speak with a pharmacist. Metformin has been started in the meantime. You're requiring oxygen at home. Please try and keep O2 between 90 and 96%. Prone as much as possible. Please try to establish care with a PCP for further diabetes follow up. Glucometer was prescribed though these are often cheaper and and can be purchased over the counter at [facility] as well (true metrix is their brand, reliON is their insulin brand). Discharge orders & Medications Prescriptions: New metformin 1,000 mg tablet 1,000 mg PO BID 30 Days Qty: 60 RF: 0 Lantus Solostar U-100 Insulin 100 unit/mL (3 mL) insulin pen 15 unit SUBCUT BID 30 Days Qty: 9 RF: 0 (DME) pen needle, diabetic [Pen Needle] 31 gauge x 5/16 needle See Rx Instructions .Route Qty: 100 RF: 0 (DME) blood-glucose meter Kit See Rx Instructions .Route Qty: 1 RF: 0 (DME) blood sugar diagnostic Strip See Rx Instructions .Route Qty: 100 RF: 0 fluoxetine 10 mg capsule 10 mg PO DAILY 30 Days Qty: 30 RF: 0 Diet/Activity/Treatments Diet: Diet as Tolerated and Carb-consistent/Diabetic Activity: As tolerated Oxygen: Keep O2 between 90-96%. Other treatments: Spot check your oxygen level as needed. May need frequent rest periods initially. If you feel more short of breath or you note your oxygen saturations have decreased - Move into the prone position, your lungs will be able to fill with more oxygen in this position. When the period of shortness of breath has passed, turned your oxygen back down. Visit Report/Discharge Packet Instructions: How to Check Your Blood Glucose, Oxygen Saturation, DI for Oxygen Therapy -- Adult, DI for Diabetes Type 1 -- Adult, How to Measure Oxygen Saturation via Pulse Oximetry, How to Perform Oxygen Therapy via Cannula, How to Prevent Falls, The Importance of Counting Carbs If You Have Diabetes, How to Use an Insulin Pen, DI for COVID-19 (Suspected or Confirmed ) Quality VTE Deep Vein Thrombosis/Pulmonary Embolism Present on Admission: No
[2021-08-06 12:00] VITALS: BP 117/81; PULSE 70; RESP 14; TEMP 36.5; O2SAT 96
--- NOTE | 2021-08-06 15:24 | CM.DANOTE ---
DCP/continued: Reviewed chart. Per provider in AM rounds patient is medically stable for d/c home with home 02. RN/Mildred spoke with patient/spouse and all in agreement. In addition, RN did diabetic teaching with spouse and RT did teaching about home 02. Spouse present for all teaching. Community resources have been provided to spouse via the phone last week. Unfortunately, resource packet left in red folder was not included with d/c instructions. [employer] placed community packet at main nurses station if patient or spouse call for additional phone numbers. Otherwise, all information for county had been provided to spouse last week. If necessary and/or requested by patient will mail packet to residence. P: Home today. JON
--- NOTE | 2021-08-06 15:42 | PC.NURSE ---
Discharge: Extensive time taken to d/c pt. First pt shown how to give own insulin. Pt gave own insulins this am using correct tech. Reviewed glucometers. Pt doesn't have his own machine yet. However pt reports he has seen it done enough he feels confident he can do it. Pt instructed to follow specific instructions when he gets his own machine. Reviewed teaching for O2. Reviewed how to take his pulse ox, freq rest breaks. proning, pt may increase and decrease the oxygen depending on what his demand is/activity he is doing. Dr. Barajas here and also gave pt instructions for his oxygen as written above. Pt is able to remove and reapply cannula. Instructed in how to clean tubing with soap and water. Reviewed home instructions for covid. was also instructed in these things. She has recover from covid. Reviewed d/c packet. Rx has been esent. Questions for pt and answered. Pt has some nervousness about going home. Pt d/c home via auto w/spouse.
== END 2021-08-06 14:30 | disposition home or self-care (01) | DRG 177 ==
LOC: ED 23:57 → AC 07-19 01:57 → ICU 07-22 16:15 → AC 08-01 07:29
PROVIDERS: Emergency Medicine; Internal Medicine; Internal Medicine Critical Care Medicine; Admitting Provider Nurse Practitioner Family; Emergency Provider Emergency Medicine; Referring Provider Emergency Medicine; Visit Provider Nurse Practitioner Family
DX: U07.1 COVID-19 (principal); J12.82 Pneumonia due to coronavirus disease 2019; J96.01 Acute respiratory failure with hypoxia; E87.1 Hypo-osmolality and hyponatremia; R04.2 Hemoptysis; R04.0 Epistaxis; F41.9 Anxiety disorder, unspecified; E11.65 Type 2 diabetes mellitus with hyperglycemia; R03.0 Elevated blood-pressure reading, without diagnosis of hypertension
CPT/HCPCS: 36415; 36569; 36592; 36600; 71045; 71275; 74177; 80048; 80053; 81001; 82533; 82728; 82805; 82962; 83036; 83525; 83605; 83690; 83735; 83880; 84100; 84145; 84206; 84484; 84681; 85025; 85027; 85379; 85610; 86140; 86341; 87040; 87205; 87633; 87635; 87797; 93005; 93010; 94640; 94762; 96361; 96365; 96375; 99285; C9803; A9270; C9113; J1100; J1642; J1650; J1815; J1885; J2405; J2543; J3490; J7613; Q9967